=== PATIENT | female | born 1980 | race Caucasian/White ===

== ENCOUNTER 2017-04-19 16:09 | Emergency (ER) | payer BC, OTHER ==
[~2017-04-19] VITALS: Wt 63.6 kg
[~2017-04-19 16:09] MED LIST: ACET-2158 PO; Lanolin TOP; PREN1TAB49 PO
[2017-04-19] MEDS ORDERED: SOD CHLORIDE 0.9% 1,000 ML IV ONE (18:00)
[2017-04-19 18:58] VITALS: BP 139/95; PULSE 111; RESP 18; TEMP 98.1
--- NOTE | 2017-04-19 19:12 | ERD ---
ER Documentation Chief Complaint Date/Time DATE: 04/19/17 TIME: 19:11 Chief Complaint faint and jittery, high blood pressure water vessel captain HPI ""This is a 36-year-old female presenting to emergency department after feeling dizzy and weak and states she felt like she was going to faint. This occurred about 5 hours prior to arrival. Patient states she was driving at the time and pulled over. Patient was picked up by her parents and brought into the ER for evaluation. Patient states she believes she got "overheated" and states she feels dehydrated. Denies chest pain, shortness breath or difficulty breathing. Denies headache, weakness or dizziness. Patient states she is feeling better now and requesting IV fluids. Patient does not want to have labs or chest x- ray done. ROS All systems reviewed and are negative except as per history of present illness. Medications Home Meds Active Scripts [Lanolin] 1 APPLIC OINT No Conflict Check, 1 APPLIC TOP BEDSIDE MEDICATION Y for BEDSIDE FOR REBECCA TO NIPPLES for 7 Days, 5 Refills Prov:BEN SALOMON MD 08/14/14 Acetaminophen (TYLENOL 325 MG TAB) 325 Mg Tab, 650 MG PO Q4H Y for PAIN LEVEL 1- 5 for 10 Days, TAB Prov:BEN SALOMON MD 08/14/14 Reported Medications Vits W-Ca,Fe,Fa(<1MG) () 1 Tab Tablet, 1 TAB PO DAILY 03/20/12 Vits W-Ca,Fe,Fa(<1MG) () 1 Tab Tablet, 1 TAB PO DAILY 03/20/12 Allergies Allergies: Coded Allergies: Amoxicillin (Verified Allergy, Intermediate, rash, 12/08/09) Penicillins (Verified Allergy, Intermediate, rash, 12/08/09) PMhx/Soc History of Surgery: No Anesthesia Reaction: No Hx Neurological Disorder: No Hx Respiratory Disorders: No Hx Cardiac Disorders: No Hx Psychiatric Problems: No Hx Miscellaneous Medical Probl: Yes (Gerd, stoamch fissures.) Hx Alcohol Use: No Hx Substance Use: No Hx Tobacco Use: No Smoking Status: Never smoker Physical Exam Vitals Vital Signs Date Time Temp Pulse Resp B/P Pulse Ox O2 Delivery O2 Flow Rate FiO2 04/19/17 18:58 98.1 111 18 139/95 98 Room Air 04/19/17 16:10 98.6 128 20 159/92 98 Physical Exam Const: No acute distress, alert Head: Atraumatic Eyes: Normal Conjunctiva ENT: Normal External Ears, Nose and Mouth. Neck: Full range of motion..~ No meningismus. Resp: Clear to auscultation bilaterally. No wheezing, rhonchi or crackles.No stridor or labored breathing. Cardio: Regular rate and rhythm, no murmurs Abd: Soft, non tender, non distended. Normal bowel sounds Skin: No petechiae or rashes Back: No midline or flank tenderness Ext: No cyanosis, or edema Neur: Awake and alert Psych: Normal Mood and Affect Results 24 hrs Laboratory Tests Test 04/19/17 16:26 Bedside Glucose 154mg/dL Current Medications Medications (Trade) Dose Ordered Sig/Mayra Route PRN Reason Start Time Stop Time Status Last Admin Dose Admin Sodium Chloride (NS) 1,000 ml @ 1,000 mls/hr Q1H ONCE IV 04/19/17 18:00 04/19/17 18:59 DC 04/19/17 17:52 Procedures/MDM EKG: As interpreted by myself and Dr. Shine Rate/Rhythm: Sinus tachycardia with heart rate 114 bpm QRS, ST, T-waves: No changes consistent w/ acute ischemia Impression: No evidence of ischemia or arrhythmia MDM: This is a 36-year-old female presenting to the emergency department for presyncopal episode while driving earlier today. Patient currently denies chest pain, shortness of breath or difficulty breathing. Denies headache, dizziness or weakness. Patient denies any nausea, vomiting or diarrhea. No abdominal pain. No dysuria or hematuria. Patient states she received stressful news while driving at around the time she started feeling lightheaded and dizzy while driving. Patient given 1 L IV fluid bolus while in the ED. No neuro deficits. Patient is alert and oriented throughout ED visit. Upon reassessment, patient states she is feeling much better. Vital signs are stable. Patient remains alert and oriented throughout ED visit. Patient is refusing any lab work or chest x-ray to be done and states she is going to see her doctor in a few days for reassessment. Differential diagnosis includes but not limited to vertigo, presyncope, migraine headache, disequilibrium, hyperventilation, hypoglycemia, acute NE and dizziness not otherwise specified. Patient is appropriate for outpatient management instructed to follow-up with primary care provider in the next 2-3 days for reassessment. Return to ED for any high fever, chest pain, difficulty breathing, shortness breath, wheezing, vomiting, diarrhea, abdominal pain or any new or worsening symptoms. Patient verbalizes understanding. All questions answered at discharge. Departure Diagnosis: Primary Impression: Pre-syncope Condition: Stable Patient Instructions: Causes of Syncope, Near Syncope, Unknown Referrals: [facility] YOU HAVE RECEIVED A MEDICAL SCREENING EXAM AND THE RESULTS INDICATE THAT YOU DO NOT HAVE A CONDITION THAT REQUIRES URGENT TREATMENT IN THE EMERGENCY DEPARTMENT. FURTHER EVALUATION AND TREATMENT OF YOUR CONDITION CAN WAIT UNTIL YOU ARE SEEN IN YOUR DOCTORS OFFICE WITHIN THE NEXT 1-2 DAYS. IT IS YOUR RESPONSIBILITY TO MAKE AN APPOINTMENT FOR FOLOW-UP CARE. IF YOU HAVE A PRIMARY DOCTOR --you should call your primary doctor and schedule an appointment IF YOU DO NOT HAVE A PRIMARY DOCTOR YOU CAN CALL OUR PHYSICIAN REFERRAL HOTLINE AT IF YOU CAN NOT AFFORD TO SEE A PHYSICIAN YOU CAN CHOSE FROM THE FOLLOWING [facility] [address] [facility] [address] [facility]. [facility] [address] [facility] [address] [facility] [address] [facility] [facility]. [address] [facility]. [facility] YOU HAVE RECEIVED A MEDICAL SCREENING EXAM AND THE RESULTS INDICATE THAT YOU DO NOT HAVE A CONDITION THAT REQUIRES URGENT TREATMENT IN THE EMERGENCY DEPARTMENT. FURTHER EVALUATION AND TREATMENT OF YOUR CONDITION CAN WAIT UNTIL YOU ARE SEEN IN YOUR DOCTORS OFFICE WITHIN THE NEXT 1-2 DAYS. IT IS YOUR RESPONSIBILITY TO MAKE AN APPOINTMENT FOR FOLOW-UP CARE. IF YOU HAVE A PRIMARY DOCTOR --you should call your primary doctor and schedule and appointment IF YOU DO NOT HAVE A PRIMARY DOCTOR YOU CAN CALL OUR PHYSICIAN REFERRAL HOTLINE AT . IF YOU CAN NOT AFFORD TO SEE A PHYSICIAN YOU CAN CHOSE FROM THE FOLLOWING [facility] INSTITUTIONS: [facility] [id number] [place] [id number] [facility] [address] [place] [address] [facility] [address] [place] [address] Additional Instructions: Call your primary care doctor TOMORROW for an appointment during the next 2-3 days.See the doctor sooner or return here if your condition worsens before your appointment time. Return to ED for any high fever, chest pain, difficulty breathing, shortness breath, wheezing, vomiting, diarrhea, abdominal pain or any new or worsening symptoms. ALONDRA CHAND NP Apr 19, 2017 19:12
== END 2017-04-19 19:00 | disposition home or self-care (01) ==
LOC: FTE 16:09
DX: R55 Syncope and collapse (principal)
CPT/HCPCS: 82962; 93005; 99284; J7030

== ENCOUNTER 2018-10-27 11:02 | Inpatient (IN) | payer BC ==
[~2018-10-27] VITALS: Ht 152.4 cm; Wt 48.0 kg
[2018-10-27] MEDS ORDERED: ONDANSETRON 4 MG INJ IV STA (14:43)
[2018-10-27] MEDS ORDERED: morphine 4 MG/ML VIAL IV STA (14:43)
[2018-10-27] MEDS ORDERED: SOD CHLORIDE 0.9% 1,000 ML IV STA (14:43)
[2018-10-27] MEDS ORDERED: ONDANSETRON 4 MG INJ IV PRN ×2 (16:00→16:30)
[2018-10-27] MEDS ORDERED: ACETAMINOPHEN 325 MG TAB PO PRN (16:00)
[2018-10-27] MEDS ORDERED: SUCR1TAB56 PO (16:01)
[2018-10-27] MEDS ORDERED: PANT40TA4 PO (16:02)
[2018-10-27] MEDS ORDERED: LISI-471 PO (16:02)
[2018-10-27] MEDS ORDERED: METO-319 PO (16:02)
[2018-10-27] MEDS ORDERED: ONDA4TAB13 PO (16:03)
[2018-10-27] MEDS ORDERED: NACL 0.9% 3 ML SYG IV SCH (16:30)
[2018-10-27] MEDS ORDERED: ENALAPRILAT 1.25 MG INJ IV PRN (16:30)
--- NOTE | 2018-10-27 16:40 | PN ---
Date/Time of Note Date/Time of Note DATE: 10/27/18 TIME: 16:24 Assessment/Plan Lines/Catheters IV C[facility] Type [facility] Saline Lock Assessment/Plan Result Diagram: 10/27/18 1453 10/27/18 1452 Results 24hrs Laboratory Tests Test 10/27/18 14:52 10/27/18 14:53 10/27/18 15:04 Urine Color RACHEAL Urine Clarity CLEAR Urine pH 6 Urine Specific [place] 1.025 Urine Ketones 2+ Urine Nitrite NEGATIVE Urine Bilirubin 2+ H Urine Urobilinogen 2+ H Urine Leukocyte Esterase NEGATIVE Urine Microscopic RBC 0-2 Urine Microscopic WBC 2-5 Urine Squamous Epithelial Cells FEW Urine Hemoglobin NEGATIVE Urine Glucose NEGATIVE Urine Total Protein 1+ Sodium Level 139 Potassium Level 3.3 L Chloride Level 99 Carbon Dioxide Level 24 Anion Gap 16 H Blood Urea Nitrogen 9 Creatinine 0.48 Est Glomerular Filtrat Rate mL/min > 60 Glucose Level 67 L Calcium Level 8.9 Total Bilirubin 1.3 Direct Bilirubin 0.20 Indirect Bilirubin 1.1 Aspartate Amino Transf (AST/SGOT) 268 H Alanine Aminotransferase (ALT/SGPT) 64 Alkaline Phosphatase 325 H Total Protein 7.4 Albumin 3.6 Globulin 3.80 H Albumin/Globulin Ratio 0.94 Lipase 801 H Hepatitis B Surface Antigen NEGATIVE Hepatitis B Core Total Antibody NEGATIVE Hepatitis C Antibody NEGATIVE White Blood Count 6.4 # Red Blood Count 2.68 L Hemoglobin 9.9 L Hematocrit 28.7 L Mean Corpuscular Volume 107.1 H Mean Corpuscular Hemoglobin 36.9 H Mean Corpuscular Hemoglobin Concent 34.5 Red Cell Distribution Width 13.8 Platelet Count 115 L Mean Platelet Volume 10.1 # Immature Granulocytes % 0.500 H Neutrophils % 70.7 Lymphocytes % 14.6 L Monocytes % 12.5 H Eosinophils % 0.6 Basophils % 1.1 Nucleated Red Blood Cells % 0.0 Immature Granulocytes # 0.030 Neutrophils # 4.5 Lymphocytes # 0.9 Monocytes # 0.8 Eosinophils # 0.0 Basophils # 0.1 Nucleated Red Blood Cells # 0.0 POC Beta HCG, Qualitative NEGATIVE Subjective 24 Hr Interval Summary Free Text/Dictation er called with pt nauseated and elevated ast 268 lipase 800. er doc was discussing with pt autoimmune dz? -pt has gi doc -- dr chong who was called to consult. in past had labs with gi for wilsons, alpha 1 , hemochromatosis, autoimmune etc. 2017 egd 2017 demonstrated duodenal erosions, abd bogdan 2016 -fatty liver neg for gall stones. pmh: duodenal erosions ovarian cystectomy fatty liver htn Allergy nkda soc tob deny etoh rare fm- htn medication: pantoprazole 40 qd metoprolol er succ 50 qd lisinopril 20 qd zofran prn Exam/Review of Systems Exam Vitals Vital Signs Date Temp Pulse Resp B/P (MAP) Pulse Ox O2 O2 Flow FiO2 Time Delivery Rate 10/27/18 98.1 110 18 168/72 99 11:08 (104) Results Results 24hrs Laboratory Tests Test 10/27/18 14:52 10/27/18 14:53 10/27/18 15:04 Urine Color RACHEAL Urine Clarity CLEAR Urine pH 6 Urine Specific [place] 1.025 Urine Ketones 2+ Urine Nitrite NEGATIVE Urine Bilirubin 2+ H Urine Urobilinogen 2+ H Urine Leukocyte Esterase NEGATIVE Urine Microscopic RBC 0-2 Urine Microscopic WBC 2-5 Urine Squamous Epithelial Cells FEW Urine Hemoglobin NEGATIVE Urine Glucose NEGATIVE Urine Total Protein 1+ Sodium Level 139 Potassium Level 3.3 L Chloride Level 99 Carbon Dioxide Level 24 Anion Gap 16 H Blood Urea Nitrogen 9 Creatinine 0.48 Est Glomerular Filtrat Rate mL/min > 60 Glucose Level 67 L Calcium Level 8.9 Total Bilirubin 1.3 Direct Bilirubin 0.20 Indirect Bilirubin 1.1 Aspartate Amino Transf (AST/SGOT) 268 H Alanine Aminotransferase (ALT/SGPT) 64 Alkaline Phosphatase 325 H Total Protein 7.4 Albumin 3.6 Globulin 3.80 H Albumin/Globulin Ratio 0.94 Lipase 801 H Hepatitis B Surface Antigen NEGATIVE Hepatitis B Core Total Antibody NEGATIVE Hepatitis C Antibody NEGATIVE White Blood Count 6.4 # Red Blood Count 2.68 L Hemoglobin 9.9 L Hematocrit 28.7 L Mean Corpuscular Volume 107.1 H Mean Corpuscular Hemoglobin 36.9 H Mean Corpuscular Hemoglobin Concent 34.5 Red Cell Distribution Width 13.8 Platelet Count 115 L Mean Platelet Volume 10.1 # Immature Granulocytes % 0.500 H Neutrophils % 70.7 Lymphocytes % 14.6 L Monocytes % 12.5 H Eosinophils % 0.6 Basophils % 1.1 Nucleated Red Blood Cells % 0.0 Immature Granulocytes # 0.030 Neutrophils # 4.5 Lymphocytes # 0.9 Monocytes # 0.8 Eosinophils # 0.0 Basophils # 0.1 Nucleated Red Blood Cells # 0.0 POC Beta HCG, Qualitative NEGATIVE Medications Medication Current Medications Ondansetron HCl (Zofran Inj) 4 mg BRIDGE ORDER PRN IV NAUSEA/VOMITING; Start 10/27/18 at 16:00; Stop 10/28/18 at 15:59 Acetaminophen (Tylenol Tab) 650 mg ER BRIDGE PRN PO .MILD PAIN 1-3 OR TEMP; Start 10/27/18 at 16:00; Stop 10/28/18 at 15:59 FABY FARFAN MD Oct 27, 2018 16:34
--- NOTE | 2018-10-27 17:06 | ERD ---
ER Documentation Chief Complaint Chief Complaint ABD PAIN SENT BY FOR ABNORMAL LAB WORK HPI Patient is a 37-year-old female with hypertension who presents with abdominal pain. Her symptoms started on . She felt like she was having abdominal contractions. She says that her liver tests were "heather high". She was told to come to the ER by Dr. Flynn her primary doctor. She said that she has an inflamed spleen and liver. She said that it might be from autoimmune disease. Upon review of the old medical records this is the patient's sixth visit to the ER since 2008. ROS All systems reviewed and are negative except as per history of present illness. Medications Home Meds Reported Medications Ondansetron Hcl* (Zofran*) 4 Mg Tab, 4 MG PO NEEDED PRN for NAUSEA AND OR VOMITING, TAB 10/27/18 Metoprolol Succinate* (Toprol XL*) 50 Mg Tab.er.24h, 50 MG PO BID, #30 TAB 10/27/18 Pantoprazole* (Pantoprazole*) 40 Mg Tablet.dr, 40 MG PO AC BREAKFAST DINNER, TAB 10/27/18 Lisinopril* (Lisinopril*) 20 Mg Tablet, 20 MG PO DAILY, #30 TAB 10/27/18 Sucralfate* (Carafate*) 1 Gm Tab, 1 GM PO AC MEALS AND BEDTIME, TAB 10/27/18 Discontinued Reported Medications Vits W-Ca,Fe,Fa(<1MG) () 1 Tab Tablet, 1 TAB PO DAILY 03/20/12 Vits W-Ca,Fe,Fa(<1MG) () 1 Tab Tablet, 1 TAB PO DAILY 03/20/12 Discontinued Scripts [Lanolin] 1 APPLIC OINT No Conflict Check, 1 APPLIC TOP BEDSIDE MEDICATION PRN for BEDSIDE FOR REBECCA TO NIPPLES for 7 Days, 5 Refills Prov:BEN SALOMON MD 08/14/14 Acetaminophen (TYLENOL 325 MG TAB) 325 Mg Tab, 650 MG PO Q4H PRN for PAIN LEVEL 1-5 for 10 Days, TAB Prov:BEN SALOMON MD 08/14/14 Allergies Allergies: Coded Allergies: Penicillins (Verified Allergy, Intermediate, rash, 10/27/18) amoxicillin (Verified Allergy, Intermediate, rash, 10/27/18) PMhx/Soc History of Surgery: No Anesthesia Reaction: No Hx Neurological Disorder: No Hx Respiratory Disorders: No Hx Cardiac Disorders: Yes (HTN) Hx Psychiatric Problems: No Hx Miscellaneous Medical Probl: Yes (Gerd, stoamch fissures.) Hx Alcohol Use: Yes (Occasional) Hx Substance Use: No Hx Tobacco Use: No Smoking Status: Never smoker FmHx Family History: No diabetes Physical Exam Vitals Vital Signs Date Temp Pulse Resp B/P (MAP) Pulse Ox O2 O2 Flow FiO2 Time Delivery Rate 10/27/18 98.1 110 18 168/72 99 11:08 (104) Physical Exam Const: No acute distress Head: Atraumatic Eyes: Normal Conjunctiva ENT: Normal External Ears, Nose and Mouth. Neck: Full range of motion. No meningismus. Resp: Clear to auscultation bilaterally Cardio: Regular rate and rhythm, no murmurs Abd: Soft, diffuse tenderness to palpation Skin: No petechiae or rashes Back: No midline or flank tenderness Ext: No cyanosis, or edema Neur: Awake and alert Psych: Normal Mood and Affect Result Diagram: 10/27/18 1453 10/27/18 1452 Results 24 hrs Laboratory Tests Test 10/27/18 14:52 10/27/18 14:53 10/27/18 15:04 Urine Color RACHEAL Urine Clarity CLEAR Urine pH 6 Urine Specific [place] 1.025 Urine Ketones 2+ mg/dL Urine Nitrite NEGATIVE mg/dL Urine Bilirubin 2+ mg/dL Urine Urobilinogen 2+ mg/dL Urine Leukocyte Esterase NEGATIVE Esther/ul Urine Microscopic RBC 0-2 /HPF Urine Microscopic WBC 2-5 /HPF Urine Squamous Epithelial Cells FEW /HPF Urine Hemoglobin NEGATIVE mg/dL Urine Glucose NEGATIVE mg/dL Urine Total Protein 1+ mg/dl Sodium Level 139 mmol/L Potassium Level 3.3 mmol/L Chloride Level 99 mmol/L Carbon Dioxide Level 24 mmol/L Anion Gap 16 Blood Urea Nitrogen 9 mg/dl Creatinine 0.48 mg/dl Est Glomerular Filtrat > 60 mL/min Rate mL/min Glucose Level 67 mg/dl Hemoglobin A1c 4.3 % Calcium Level 8.9 mg/dl Total Bilirubin 1.3 mg/dl Direct Bilirubin 0.20 mg/dl Indirect Bilirubin 1.1 mg/dl Aspartate Amino Transf (AST/SGOT) 268 IU/L Alanine 64 IU/L Aminotransferase (ALT/SGPT) Alkaline Phosphatase 325 IU/L Total Protein 7.4 g/dl Albumin 3.6 g/dl Globulin 3.80 g/dl Albumin/Globulin Ratio 0.94 Lipase 801 U/L Hepatitis B Surface Antigen NEGATIVE Hepatitis B Core Total Antibody NEGATIVE Hepatitis C Antibody NEGATIVE White Blood Count 6.4 10^3/ul Red Blood Count 2.68 10^6/ul Hemoglobin 9.9 g/dl Hematocrit 28.7 % Mean Corpuscular Volume 107.1 fl Mean Corpuscular Hemoglobin 36.9 pg Mean Corpuscular 34.5 g/dl Hemoglobin Concent Red Cell Distribution Width 13.8 % Platelet Count 115 10^3/UL Mean Platelet Volume 10.1 fl Immature Granulocytes % 0.500 % Neutrophils % 70.7 % Lymphocytes % 14.6 % Monocytes % 12.5 % Eosinophils % 0.6 % Basophils % 1.1 % Nucleated Red Blood Cells % 0.0 /100WBC Immature Granulocytes # 0.030 10^3/ul Neutrophils # 4.5 10^3/ul Lymphocytes # 0.9 10^3/ul Monocytes # 0.8 10^3/ul Eosinophils # 0.0 10^3/ul Basophils # 0.1 10^3/ul Nucleated Red Blood Cells # 0.0 10^3/ul POC Beta HCG, Qualitative NEGATIVE Current Medications Medications Dose Sig/Mayra Start Time Status Last (Trade) Ordered Route PRN Stop Time Admin Dose Reason Admin Sodium 1,000 ml @ Q1H STAT 10/27/18 DC 10/27/18 Chloride 1,000 mls/hr IV 14:43 10/27/18 15:08 15:42 Morphine 4 mg ONCE STAT 10/27/18 DC 10/27/18 Sulfate IV 14:43 10/27/18 15:07 (morphine) 14:45 Ondansetron 4 mg ONCE STAT 10/27/18 DC 10/27/18 HCl (Zofran IV 14:43 10/27/18 15:07 Inj) 14:45 Procedures/MDM CT abdomen pelvis is pending at this time. Ultrasound gallbladder read by jonny kelly. Patient is a 37-year-old female who presents with abdominal pain. She was found to have elevated LFTs and has hepatosplenomegaly. The patient will be admitted to the care of Dr. Pérez who is covering for Dr. Flynn. The patient will be admitted to a medical surgical bed at this time. Departure Diagnosis: Primary Impression: Liver failure Liver failure chronicity: acute Hepatic coma status: without hepatic coma Qualified Codes: K72.00 - Acute and subacute hepatic failure without coma Additional Impression: Abdominal pain Abdominal location: generalized Qualified Codes: R10.84 - Generalized abdominal pain Condition: GABI Carcamo MD Oct 27, 2018 17:06
[2018-10-27] MEDS ORDERED: DEXTROSE 50% 50 ML SYRINGE IV STA (17:10)
[2018-10-27] MEDS ORDERED: DEXTROSE 50% 50 ML SYRINGE IV ONE (17:30)
[2018-10-27] MEDS: DEXTROSE 5%-0.9% NACL 1,000 ML IV SCH (17:33)
[2018-10-27] MEDS ORDERED: SOD CHLORIDE 0.9% 1,000 ML IV SCH (18:00)
[2018-10-27] MEDS: morphine 2 MG INJ IV PRN ×2 (18:19→22:41)
[2018-10-27 18:36] VITALS: BP 133/64; RESP 18
[2018-10-27] MEDS ORDERED: IOHEXOL 300MG/ML 150 ML BTL ONE (18:53)
[2018-10-27] MEDS ORDERED: SOD CHLORIDE 0.9% 100 ML ONE (18:53)
--- NOTE | 2018-10-27 19:39 | CONS ---
DATE OF ADMISSION: 10/27/2018 DATE OF CONSULTATION: TYPE OF CONSULTATION: Gastroenterology. HISTORY OF PRESENT ILLNESS: Ms. Ross is a 37-year-old woman who I am asked to see regarding abnorma l liver tests and abdominal symptoms. Apparently, the patient came to the emergency room today on advice of Dr. Flynn. She had been doing well in recent months and earlier last year, she was noted to have an AST of 41 and ALT of 68. Of note 8 days ago, she developed epigastric discomfort and a s ensation of distention. She had KUB performed as well as lab tests. The KUB showed hepatomegaly and splenomegaly. Lab tests at that time revealed the bilirubin of 4.0, alkaline phosphatase 337, AST 1 66, ALT 22, LDH 217, amylase 61, lipase 101, sed rate 36, hemoglobin 10.3, hematocrit 29, MCV 101, pl atelets 89, iron binding ratio of 29, ferritin 186, CRP 32. Since those labs over the past week, she has not felt any better. In fact, she felt slightly worse today and sought attention in the emergen cy room because of that. Over the past week, she describes sharp continual epigastric discomfort. I t is made worse by eating. Apparently over the past week, she took Tylenol one occasion but was advi sed not to by her mother. The pain has kept her from sleeping and is described as 10/10 in severity. In the emergency room, laboratory data were repeated and she was found to have a white count of 6.4 , hemoglobin 9.9, hematocrit 28.8, MCV 107, platelets 115, PT/INR 1.0, PTT 25.6. Chemistries are rem arkable for sodium 139, potassium 3.3, BUN 9, creatinine 0.48, glucose 67, bilirubin 1.3, AST 268, AL T 64, alkaline phosphatase 325, globulin 3.8, lipase 801. In addition, she has had an ultrasound per formed which showed distended gallbladder with sludge, likely focal fatty sparing of the liver adjace nt to the gallbladder, no significant gallbladder wall thickening and hepatomegaly of liver with fatt y infiltration. On reviewing her previous records, she was seen in 2017 with complaints of nausea an d vomiting. She admitted being under stress at that time. Nonetheless, she did not respond to medic al therapy and an endoscopy was performed. A small hiatal hernia was noted as well as granularity in the stomach and erosions in the bulb and duodenum. She was noted to have abnormal liver tests in and an MRI was performed which was read as having a fatty liver. Basic laboratory data showed dequan er test elevation. An VALENCIA was 1:80 with a sed rate of 2. A number of other serologies were ordered; however, the patient never returned for followup until the current time. PAST MEDICAL HISTORY: Significant for hospitalization for childbirth. Adult illness is significant for hypertension and tachycardia for which she is seeing a upholstery restorer. Childhood: Denies rheumati c fever, scarlet fever. ALLERGIES: 1. AMOXICILLIN. 2. PENICILLIN. INJURIES: None. MEDICATIONS: Currently include: 1. Metoprolol. 2. Pantoprazole. 3. Lisinopril. 4. Carafate. 5. Zofran on as needed basis. SOCIAL HISTORY: The patient works in the [employer]. She does not smoke and drinks 1 or 2 alcoholic beverages once weekly. FAMILY HISTORY: There is no family history of liver disease. REVIEW OF SYSTEMS: Negative except as noted above. PHYSICAL EXAMINATION: GENERAL: The patient is a well-developed, thin white female lying comfortably in bed. VITAL SIGNS: Temperature 98.1, pulse 100, respirations 18, blood pressure 130/84. SKIN: Clear. HEENT: Unremarkable for scleral icterus. LUNGS: Clear to percussion and auscultation. CARDIAC: No murmurs, rubs or gallops. ABDOMEN: Soft, mild distention, nontender, no rebound or rigidity. EXTREMITIES : No evidence of edema. LABORATORY DATA: From hospital, as recorded above. IMPRESSION: I am concerned about the patient's underlying liver disease. I note fluctuating liver t ests and a low level positive VALENCIA in the past. This certainly raises the possibility of autoimmune h epatitis. At this point, I am also concerned about the thrombocytopenia which may represent substant ial underlying liver disease. It is unclear as to whether the patient may have an autoimmune hepatit is type of phenomena or alternatively some type of infiltrative process in the liver such as a lympho ma. PLAN: 1. I will discuss the above with Dr. Flynn. 2. I discussed my concerns with the patient and have strongly advised her that she should not disapp ear from followup at this point. 3. Await CAT scan that has already been ordered. 4. I reviewed the situation with the ER doctor and ordered serologic studies as suggested by me. 5. The patient wishes to be admitted tonight for observation, but would like to be discharged tomorr ow if possible. As long as she is stable and not substantially symptomatic, I do not have a problem with that. However if she gets discharged, I have suggested she call me Tuesday morning to arrange fo r further followup. Thank you once again for having me see this patient in consultation. Dictated By: ASHANTI RIVERA/NTS Conf#: [id number] DID#: [id number] CC: FABY FARFAN MD;*EndCC*
[2018-10-27 19:56] VITALS: BMI 23.4
[2018-10-27 19:59] VITALS: BP 106/66; PULSE 88; RESP 18
[2018-10-28 02:43] VITALS: BP 132/62; PULSE 80; RESP 20
[2018-10-28] MEDS: DEXTROSE 5%-0.9% NACL 1,000 ML IV SCH (02:44)
[2018-10-28] MEDS: morphine 2 MG INJ IV PRN ×4 (02:45→20:11)
[2018-10-28] MEDS: PANTOPRAZOLE 40 MG INJ IV SCH (05:57)
[2018-10-28 07:58] VITALS: BP 103/64; PULSE 99; RESP 18
[2018-10-28] MEDS ORDERED: D5-NS + KCL 40 MEQ 1,000 ML IV SCH (11:30)
[2018-10-28] MEDS ORDERED: EPOETIN ALFA (NESRD) 3,000 UNITS/ML VIAL SC ONE (12:30)
--- NOTE | 2018-10-28 12:38 | PN ---
Date/Time of Note Date/Time of Note DATE: 10/28/18 TIME: 12:12 Assessment/Plan VTE Prophylaxis Risk score (from Nsg)>0 risk: 2 SCD applied (from Nsg): Yes Pharmacological prophylaxis: other Lines/Catheters IV Catheter Type (from Nrsg): Peripheral IV Urinary Cath still in place: No Assessment/Plan Hospital Course er called with pt nauseated and elevated ast 268 lipase 800. er doc was discussing with pt autoimmune dz? egd 2017 demonstrated duodenal erosions, abd bogdan 2016 -fatty liver neg for gall stones. CT scan of abd/pel show mild enlarged gb with stones, cannot r/o cholecystitis but wbc is normal and abd exam neg in RUQ. Assessment/Plan er called with pt nauseated and elevated ast 268 lipase 800. er doc was discussing with pt autoimmune dz? -pt has gi doc -- dr chong who was called to consult. in past had labs with gi for [place]ils[place], alpha 1 , hemochromatosis, autoimmune etc. 2017 egd 2017 demonstrated duodenal erosions, abd bogdan 2016 -fatty liver neg for gall stones. elevated LFT- improved today ast down 268 to 186, but pt has been NPO and on morphine . GI- CT scan of abd/pel show mild enlarged gb with stones, cannot r/o cholecystitis but wbc is normal and abd exam neg in RUQ. gi has been carefully following and HIDA scan is pending. pt needs to cont npo until after test is completed. pt belly distended and pt not hungry but she would like to have fluids. - gi reports in 2017 complete autoimmune workup results were neg. - lipase decreased from 800 to 400's while npo anemia- worse with hydration. will give epo today. and get fe studies. 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 currently on ppi. low K- being replaced in IV. discussed with nurse to change diet to clr lig after HIDA is completed. Result Diagram: [id number]/28/[id number] Results 24hrs Laboratory Tests Test 10/27/18 14:52 10/27/18 14:53 10/27/18 15:04 10/27/18 15:06 Haptoglobin 58 Urine Color RACHEAL Urine Clarity CLEAR Urine pH 6 Urine Specific [place] 1.025 Urine Ketones 2+ Urine Nitrite NEGATIVE Urine Bilirubin 2+ H Urine Urobilinogen 2+ H Urine Leukocyte NEGATIVE Esterase Urine Microscopic RBC 0-2 Urine Microscopic WBC 2-5 Urine Squamous FEW Epithelial Cells Urine Hemoglobin NEGATIVE Urine Glucose NEGATIVE Urine Total Protein 1+ Sodium Level 139 Potassium Level 3.3 L Chloride Level 99 Carbon Dioxide Level 24 Anion Gap 16 H Blood Urea Nitrogen 9 Creatinine 0.48 Est Glomerular Filtrat > 60 Rate mL/min Glucose Level 67 L Hemoglobin A1c 4.3 Calcium Level 8.9 Total Bilirubin 1.3 Direct Bilirubin 0.20 Indirect Bilirubin 1.1 Aspartate Amino 268 H Transf (AST/SGOT) Alanine 64 Aminotransferase (ALT/ SGPT) Alkaline Phosphatase 325 H Total Protein 7.4 Albumin 3.6 Globulin 3.80 H Albumin/Globulin Ratio 0.94 Lipase 801 H Anti-Nuclear Antibody Pending Screen Hepatitis B Surface NEGATIVE Antigen Hepatitis B Core NEGATIVE Total Antibody Hepatitis C Antibody NEGATIVE White Blood Count 6.4 # Red Blood Count 2.68 L Hemoglobin 9.9 L Hematocrit 28.7 L Mean Corpuscular 107.1 H Volume Mean Corpuscular 36.9 H Hemoglobin Mean Corpuscular 34.5 Hemoglobin Concent Red Cell Distribution 13.8 Width Platelet Count 115 L Mean Platelet Volume 10.1 # Immature Granulocytes 0.500 H % Neutrophils % 70.7 Lymphocytes % 14.6 L Monocytes % 12.5 H Eosinophils % 0.6 Basophils % 1.1 Nucleated Red Blood 0.0 Cells % Immature Granulocytes 0.030 # Neutrophils # 4.5 Lymphocytes # 0.9 Monocytes # 0.8 Eosinophils # 0.0 Basophils # 0.1 Nucleated Red Blood 0.0 Cells # POC Beta HCG, NEGATIVE Qualitative Hepatitis A IgM NON-REACTIVE Antibody Test 10/27/18 17:08 10/27/18 17:23 10/27/18 17:42 10/27/18 18:02 Bedside Glucose 65 L 239 H 191 [id number] 226 H Ceruloplasmin 31 Cholesterol Level 168 Immunoglobulin A 456 H Immunoglobulin G 1333 Immunoglobulin M 124 Smooth Muscle Pending Antibody Interpret Test 10/28/18 05:17 White Blood Count 3.2 #L Red Blood Count 2.29 L Hemoglobin 8.4 L Hematocrit 24.6 L Mean Corpuscular 107.4 H Volume Mean Corpuscular 36.7 H Hemoglobin Mean Corpuscular 34.1 Hemoglobin Concent Red Cell Distribution 13.4 Width Platelet Count 93 L Mean Platelet Volume 10.7 H Immature Granulocytes 0.300 % Neutrophils % 62.6 Lymphocytes % 19.6 Monocytes % 15.0 H Eosinophils % 1.6 Basophils % 0.9 Nucleated Red Blood 0.0 Cells % Immature Granulocytes 0.010 # Neutrophils # 2.0 Lymphocytes # 0.6 L Monocytes # 0.5 Eosinophils # 0.1 Basophils # 0.0 Nucleated Red Blood 0.0 Cells # Sodium Level 142 Potassium Level 3.0 L Chloride Level 106 Carbon Dioxide Level 29 Anion Gap 7 # Blood Urea Nitrogen 6 L Creatinine 0.42 L Est Glomerular Filtrat > 60 Rate mL/min Glucose Level 103 Hemoglobin A1c 4.4 Calcium Level 7.8 L Total Bilirubin 1.0 Direct Bilirubin 0.20 Indirect Bilirubin 0.8 Aspartate Amino 186 H Transf (AST/SGOT) Alanine 52 Aminotransferase (ALT/ SGPT) Alkaline Phosphatase 245 H Total Protein 6.0 #L Albumin 2.7 L Amylase Level 55 Lipase 424 H Exam/Review of Systems Exam Vitals Vital Signs Date Temp Pulse Resp B/P (MAP) Pulse Ox O2 O2 Flow FiO2 Time Delivery Rate 10/28/18 98.1 99 18 103/64 98 Room Air 07:58 (77) Intake and Output 10/27/18 10/27/18 10/28/18 1414:59 22:59 06:59 IntakeIntake Total 1000 ml BalanceBalance 1000 ml Results Results 24hrs Laboratory Tests Test 10/27/18 14:52 10/27/18 14:53 10/27/18 15:04 10/27/18 15:06 Haptoglobin 58 Urine Color RACHEAL Urine Clarity CLEAR Urine pH 6 Urine Specific [place] 1.025 Urine Ketones 2+ Urine Nitrite NEGATIVE Urine Bilirubin 2+ H Urine Urobilinogen 2+ H Urine Leukocyte NEGATIVE Esterase Urine Microscopic RBC 0-2 Urine Microscopic WBC 2-5 Urine Squamous FEW Epithelial Cells Urine Hemoglobin NEGATIVE Urine Glucose NEGATIVE Urine Total Protein 1+ Sodium Level 139 Potassium Level 3.3 L Chloride Level 99 Carbon Dioxide Level 24 Anion Gap 16 H Blood Urea Nitrogen 9 Creatinine 0.48 Est Glomerular Filtrat > 60 Rate mL/min Glucose Level 67 L Hemoglobin A1c 4.3 Calcium Level 8.9 Total Bilirubin 1.3 Direct Bilirubin 0.20 Indirect Bilirubin 1.1 Aspartate Amino 268 H Transf (AST/SGOT) Alanine 64 Aminotransferase (ALT/ SGPT) Alkaline Phosphatase 325 H Total Protein 7.4 Albumin 3.6 Globulin 3.80 H Albumin/Globulin Ratio 0.94 Lipase 801 H Anti-Nuclear Antibody Pending Screen Hepatitis B Surface NEGATIVE Antigen Hepatitis B Core NEGATIVE Total Antibody Hepatitis C Antibody NEGATIVE White Blood Count 6.4 # Red Blood Count 2.68 L Hemoglobin 9.9 L Hematocrit 28.7 L Mean Corpuscular 107.1 H Volume Mean Corpuscular 36.9 H Hemoglobin Mean Corpuscular 34.5 Hemoglobin Concent Red Cell Distribution 13.8 Width Platelet Count 115 L Mean Platelet Volume 10.1 # Immature Granulocytes 0.500 H % Neutrophils % 70.7 Lymphocytes % 14.6 L Monocytes % 12.5 H Eosinophils % 0.6 Basophils % 1.1 Nucleated Red Blood 0.0 Cells % Immature Granulocytes 0.030 # Neutrophils # 4.5 Lymphocytes # 0.9 Monocytes # 0.8 Eosinophils # 0.0 Basophils # 0.1 Nucleated Red Blood 0.0 Cells # POC Beta HCG, NEGATIVE Qualitative Hepatitis A IgM NON-REACTIVE Antibody Test 10/27/18 17:08 10/27/18 17:23 10/27/18 17:42 10/27/18 18:02 Bedside Glucose 65 L 239 H 191 [id number] 226 H Ceruloplasmin 31 Cholesterol Level 168 Immunoglobulin A 456 H Immunoglobulin G 1333 Immunoglobulin M 124 Smooth Muscle Pending Antibody Interpret Test 10/28/18 05:17 White Blood Count 3.2 #L Red Blood Count 2.29 L Hemoglobin 8.4 L Hematocrit 24.6 L Mean Corpuscular 107.4 H Volume Mean Corpuscular 36.7 H Hemoglobin Mean Corpuscular 34.1 Hemoglobin Concent Red Cell Distribution 13.4 Width Platelet Count 93 L Mean Platelet Volume 10.7 H Immature Granulocytes 0.300 % Neutrophils % 62.6 Lymphocytes % 19.6 Monocytes % 15.0 H Eosinophils % 1.6 Basophils % 0.9 Nucleated Red Blood 0.0 Cells % Immature Granulocytes 0.010 # Neutrophils # 2.0 Lymphocytes # 0.6 L Monocytes # 0.5 Eosinophils # 0.1 Basophils # 0.0 Nucleated Red Blood 0.0 Cells # Sodium Level 142 Potassium Level 3.0 L Chloride Level 106 Carbon Dioxide Level 29 Anion Gap 7 # Blood Urea Nitrogen 6 L Creatinine 0.42 L Est Glomerular Filtrat > 60 Rate mL/min Glucose Level 103 Hemoglobin A1c 4.4 Calcium Level 7.8 L Total Bilirubin 1.0 Direct Bilirubin 0.20 Indirect Bilirubin 0.8 Aspartate Amino 186 H Transf (AST/SGOT) Alanine 52 Aminotransferase (ALT/ SGPT) Alkaline Phosphatase 245 H Total Protein 6.0 #L Albumin 2.7 L Amylase Level 55 Lipase 424 H Medications Medication Current Medications Ondansetron HCl (Zofran Inj) 4 mg BRIDGE ORDER PRN IV NAUSEA/VOMITING; Start 10/27/18 at 16:00; Stop 10/28/18 at 15:59 Acetaminophen (Tylenol Tab) 650 mg ER BRIDGE PRN PO .MILD PAIN 1-3 OR TEMP; Start 10/27/18 at 16:00; Stop 10/28/18 at 15:59 IV Flush (NS 3 ml) 3 ml PER PROTOCOL IV ; Start 10/27/18 at 16:30 Ondansetron HCl (Zofran Inj) 4 mg Q6H PRN IV NAUSEA/VOMITING; Start 10/27/18 at 16:30 Morphine Sulfate (morphine) 2 mg Q4H PRN IV .SEVERE PAIN 7-10 Last administered on 10/28/18at 07:58; Admin Dose 2 MG; Start 10/27/18 at 16:30 Pantoprazole (Protonix Iv) 40 mg DAILY@06 IV Last administered on 10/28/18at 05:57; Admin Dose 40 MG; Start 10/28/18 at 06:00 Potassium Chloride/Dextrose/ Sod Cl 1,000 ml @ 120 mls/hr Q8H20M IV ; Start 10/28/18 at 11:30 FABY FARFAN MD Oct 28, 2018 12:22
--- NOTE | 2018-10-28 13:03 | CONS ---
Consult Date/Type/Reason Admit Date/Time Oct 27, 2018 at 15:43 Initial Consult Date Type of Consultation: GI Date/Time of Note DATE: 10/28/18 TIME: 12:40 Subjective Still having diffuse abdominal discomfort Reviewed OP labs from 2017: Fe/IBC 60 Ferritin 170 Anti Sm Musc normal AMA - HAA - negative HBsAb+, HBcAb -, HBsAg- Anti LKM - normal VAL[place] - Negative Ceruloplasmin - normal Alpha Anti Trypsin - normal Immunoglobulins Normal except elevated IgE Reviwed Ct with radiologist: uncertain re cholecystitis, ? findings related to hepatitis and distended GB from fasting Objective Vitals Vital Signs Date Temp Pulse Resp B/P (MAP) Pulse Ox O2 O2 Flow FiO2 Time Delivery Rate 10/28/18 98.1 99 18 103/64 98 Room Air 07:58 (77) Skin: clear Cardiac: no m, r, g Abdomen: soft, mild diffuse abdominal discomfort, no rebound or rigidity Ext: no edema Intake and Output 10/27/18 10/27/18 10/28/18 1515:00 23:00 07:00 IntakeIntake Total 1000 ml BalanceBalance 1000 ml Results/Medications Result Diagram: 10/28/18 0517 10/28/18 0517 Results 24 hrs Laboratory Tests Test 10/27/18 14:52 10/27/18 14:53 10/27/18 15:04 10/27/18 15:06 Haptoglobin 58 Urine Color RCAHEAL Urine Clarity CLEAR Urine pH 6 Urine Specific [place] 1.025 Urine Ketones 2+ Urine Nitrite NEGATIVE Urine Bilirubin 2+ H Urine Urobilinogen 2+ H Urine Leukocyte NEGATIVE Esterase Urine Microscopic RBC 0-2 Urine Microscopic WBC 2-5 Urine Squamous FEW Epithelial Cells Urine Hemoglobin NEGATIVE Urine Glucose NEGATIVE Urine Total Protein 1+ Sodium Level 139 Potassium Level 3.3 L Chloride Level 99 Carbon Dioxide Level 24 Anion Gap 16 H Blood Urea Nitrogen 9 Creatinine 0.48 Est Glomerular Filtrat > 60 Rate mL/min Glucose Level 67 L Hemoglobin A1c 4.3 Calcium Level 8.9 Total Bilirubin 1.3 Direct Bilirubin 0.20 Indirect Bilirubin 1.1 Aspartate Amino 268 H Transf (AST/SGOT) Alanine 64 Aminotransferase (ALT/ SGPT) Alkaline Phosphatase 325 H Total Protein 7.4 Albumin 3.6 Globulin 3.80 H Albumin/Globulin Ratio 0.94 Lipase 801 H Anti-Nuclear Antibody Pending Screen Hepatitis B Surface NEGATIVE Antigen Hepatitis B Core NEGATIVE Total Antibody Hepatitis C Antibody NEGATIVE White Blood Count 6.4 # Red Blood Count 2.68 L Hemoglobin 9.9 L Hematocrit 28.7 L Mean Corpuscular 107.1 H Volume Mean Corpuscular 36.9 H Hemoglobin Mean Corpuscular 34.5 Hemoglobin Concent Red Cell Distribution 13.8 Width Platelet Count 115 L Mean Platelet Volume 10.1 # Immature Granulocytes 0.500 H % Neutrophils % 70.7 Lymphocytes % 14.6 L Monocytes % 12.5 H Eosinophils % 0.6 Basophils % 1.1 Nucleated Red Blood 0.0 Cells % Immature Granulocytes 0.030 # Neutrophils # 4.5 Lymphocytes # 0.9 Monocytes # 0.8 Eosinophils # 0.0 Basophils # 0.1 Nucleated Red Blood 0.0 Cells # POC Beta HCG, NEGATIVE Qualitative Hepatitis A IgM NON-REACTIVE Antibody Test 10/27/18 17:08 10/27/18 17:23 10/27/18 17:42 10/27/18 18:02 Bedside Glucose 65 L 239 H 191 [id number] 226 H Ceruloplasmin 31 Cholesterol Level 168 Immunoglobulin A 456 H Immunoglobulin G 1333 Immunoglobulin M 124 Smooth Muscle Pending Antibody Interpret Test 10/28/18 05:17 White Blood Count 3.2 #L Red Blood Count 2.29 L Hemoglobin 8.4 L Hematocrit 24.6 L Mean Corpuscular 107.4 H Volume Mean Corpuscular 36.7 H Hemoglobin Mean Corpuscular 34.1 Hemoglobin Concent Red Cell Distribution 13.4 Width Platelet Count 93 L Mean Platelet Volume 10.7 H Immature Granulocytes 0.300 % Neutrophils % 62.6 Lymphocytes % 19.6 Monocytes % 15.0 H Eosinophils % 1.6 Basophils % 0.9 Nucleated Red Blood 0.0 Cells % Immature Granulocytes 0.010 # Neutrophils # 2.0 Lymphocytes # 0.6 L Monocytes # 0.5 Eosinophils # 0.1 Basophils # 0.0 Nucleated Red Blood 0.0 Cells # Sodium Level 142 Potassium Level 3.0 L Chloride Level 106 Carbon Dioxide Level 29 Anion Gap 7 # Blood Urea Nitrogen 6 L Creatinine 0.42 L Est Glomerular Filtrat > 60 Rate mL/min Glucose Level 103 Hemoglobin A1c 4.4 Calcium Level 7.8 L Total Bilirubin 1.0 Direct Bilirubin 0.20 Indirect Bilirubin 0.8 Aspartate Amino 186 H Transf (AST/SGOT) Alanine 52 Aminotransferase (ALT/ SGPT) Alkaline Phosphatase 245 H Total Protein 6.0 #L Albumin 2.7 L Amylase Level 55 Lipase 424 H Home Meds Reported Medications Ondansetron Hcl* (Zofran*) 4 Mg Tab, 4 MG PO NEEDED PRN for NAUSEA AND OR VOMITING, TAB 10/27/18 Metoprolol Succinate* (Toprol XL*) 50 Mg Tab.er.24h, 50 MG PO BID, #30 TAB 10/27/18 Pantoprazole* (Pantoprazole*) 40 Mg Tablet.dr, 40 MG PO AC BREAKFAST DINNER, TAB 10/27/18 Lisinopril* (Lisinopril*) 20 Mg Tablet, 20 MG PO DAILY, #30 TAB 10/27/18 Sucralfate* (Carafate*) 1 Gm Tab, 1 GM PO AC MEALS AND BEDTIME, TAB 10/27/18 Discontinued Reported Medications Vits W-Ca,Fe,Fa(<1MG) () 1 Tab Tablet, 1 TAB PO DAILY 03/20/12 Vits W-Ca,Fe,Fa(<1MG) () 1 Tab Tablet, 1 TAB PO DAILY 03/20/12 Discontinued Scripts [Lanolin] 1 APPLIC OINT No Conflict Check, 1 APPLIC TOP BEDSIDE MEDICATION PRN for BEDSIDE FOR REBECCA TO NIPPLES for 7 Days, 5 Refills Prov:BEN SALOMON MD 08/14/14 Acetaminophen (TYLENOL 325 MG TAB) 325 Mg Tab, 650 MG PO Q4H PRN for PAIN LEVEL 1-5 for 10 Days, TAB Prov:BEN SALOMON MD 08/14/14 Medications Current Medications IV Flush (NS 3 ml) 3 ml PER PROTOCOL IV ; Start 10/27/18 at 16:30 Ondansetron HCl (Zofran Inj) 4 mg Q6H PRN IV NAUSEA/VOMITING; Start 10/27/18 at 16:30 Morphine Sulfate (morphine) 2 mg Q4H PRN IV .SEVERE PAIN 7-10 Last administered on 10/28/18at 12:24; Admin Dose 2 MG; Start 10/27/18 at 16:30 Pantoprazole (Protonix Iv) 40 mg DAILY@06 IV Last administered on 10/28/18at 05:57; Admin Dose 40 MG; Start 10/28/18 at 06:00 Potassium Chloride/Dextrose/ Sod Cl 1,000 ml @ 100 mls/hr Q10H IV ; Start 10/28/18 at 11:30 Assessment/Plan Hospital Course (Demo Recall) Impression: 1. Abdominal discomfort - ? whether CT scan gallbladder findings represent cholecystitis, note normal wbc and atypical symptoms 2. Chronically abnormal and fluctuating liver tests with extensive negative evaluation - note improvement over past week 3. Elevated lipase - improving - no evidence of pancreatitis on CT Plan: Discussed with Manolo Flynn yesterday and Beto today HIDA scan ordered If HIDA scan positive, will need surgical consultation for cholecystectomy and intraoperative liver biopsy If HIDA scan negative next step may be liver biopsy or referral to tertiary center ASHANTI WARREN MD Oct 28, 2018 12:52
[2018-10-28] MEDS: POTASSIUM CHLORIDE 40 MEQ in DEXTROSE 5%-0.9% NACL 1,000 ML IV SCH (13:40)
[2018-10-28 14:00] VITALS: BP 104/64; PULSE 84; RESP 18
[2018-10-28] MEDS ORDERED: EPOETIN 10000 UNITS/ML (NON ESRD/NON ONCOLOGY) SC SCH (15:00)
[2018-10-28 20:00] VITALS: BP 117/70; PULSE 74; RESP 17
[2018-10-29] MEDS: morphine 2 MG INJ IV PRN ×5 (00:29→18:44)
[2018-10-29] MEDS: POTASSIUM CHLORIDE 40 MEQ in DEXTROSE 5%-0.9% NACL 1,000 ML IV SCH ×3 (01:57→14:45)
[2018-10-29 03:12] VITALS: BP 101/63; PULSE 96; RESP 18
[2018-10-29] MEDS: PANTOPRAZOLE 40 MG INJ IV SCH (05:13)
[2018-10-29 08:22] VITALS: BP 121/67; PULSE 61; RESP 17
--- NOTE | 2018-10-29 11:09 | CONS ---
Consult Date/Type/Reason Admit Date/Time Oct 27, 2018 at 15:43 Initial Consult Date Type of Consultation: GI Date/Time of Note DATE: 10/29/18 TIME: 11:03 Subjective HIDA scan shows normal gallbladder Tolerated clear liquids Abdominal discomfort persists Objective Vitals Vital Signs Date Temp Pulse Resp B/P (MAP) Pulse Ox O2 O2 Flow FiO2 Time Delivery Rate 10/29/18 98.0 61 17 121/67 93 08:22 (85) 10/28/18 Room Air 14:00 Cheat: clear to P and A Cardiac: no m, r, g Abdomen: soft, mild diffuse tenderness, no rebound or rigidity Intake and Output 10/28/18 10/28/18 10/29/18 1515:00 23:00 07:00 IntakeIntake Total 1000 ml 300 ml 840 ml BalanceBalance 1000 ml 300 ml 840 ml Results/Medications Result Diagram: 10/28/18 0517 10/29/18 0434 Results 24 hrs Laboratory Tests Test 10/29/18 04:34 10/29/18 04:53 Sodium Level 144 Potassium Level 3.4 L Chloride Level 110 Carbon Dioxide Level 27 Anion Gap 7 Blood Urea Nitrogen 3 L Creatinine 0.44 Est Glomerular Filtrat Rate mL/min > 60 Glucose Level 101 Calcium Level 7.7 L Iron Level 47 Total Iron Binding Capacity 229 L Percent Iron Saturation 21 L Lipase 321 H Total Bilirubin 0.8 Direct Bilirubin 0.00 # Indirect Bilirubin 0.8 Aspartate Amino Transf (AST/SGOT) 172 H Alanine Aminotransferase (ALT/SGPT) 57 Alkaline Phosphatase 203 H Total Protein 5.6 L Albumin 2.6 L Home Meds Reported Medications Ondansetron Hcl* (Zofran*) 4 Mg Tab, 4 MG PO NEEDED PRN for NAUSEA AND OR VOMITING, TAB 10/27/18 Metoprolol Succinate* (Toprol XL*) 50 Mg Tab.er.24h, 50 MG PO BID, #30 TAB 10/27/18 Pantoprazole* (Pantoprazole*) 40 Mg Tablet.dr, 40 MG PO AC BREAKFAST DINNER, TAB 10/27/18 Lisinopril* (Lisinopril*) 20 Mg Tablet, 20 MG PO DAILY, #30 TAB 10/27/18 Sucralfate* (Carafate*) 1 Gm Tab, 1 GM PO AC MEALS AND BEDTIME, TAB 10/27/18 Discontinued Reported Medications Vits W-Ca,Fe,Fa(<1MG) () 1 Tab Tablet, 1 TAB PO DAILY 03/20/12 Vits W-Ca,Fe,Fa(<1MG) () 1 Tab Tablet, 1 TAB PO DAILY 03/20/12 Discontinued Scripts [Lanolin] 1 APPLIC OINT No Conflict Check, 1 APPLIC TOP BEDSIDE MEDICATION PRN for BEDSIDE FOR REBECCA TO NIPPLES for 7 Days, 5 Refills Prov:BEN SALOMON MD 08/14/14 Acetaminophen (TYLENOL 325 MG TAB) 325 Mg Tab, 650 MG PO Q4H PRN for PAIN LEVEL 1-5 for 10 Days, TAB Prov:BEN SALOMON MD 08/14/14 Medications Current Medications IV Flush (NS 3 ml) 3 ml PER PROTOCOL IV ; Start 10/27/18 at 16:30 Ondansetron HCl (Zofran Inj) 4 mg Q6H PRN IV NAUSEA/VOMITING; Start 10/27/18 at 16:30 Morphine Sulfate (morphine) 2 mg Q4H PRN IV .SEVERE PAIN 7-10 Last administered on 10/29/18at 09:24; Admin Dose 2 MG; Start 10/27/18 at 16:30 Pantoprazole (Protonix Iv) 40 mg DAILY@06 IV Last administered on 10/29/18at 05:13; Admin Dose 40 MG; Start 10/28/18 at 06:00 Potassium Chloride 40 meq/ Dextrose/Sodium Chloride 1,020 ml @ 100 mls/hr [id number] IV Last administered on 10/29/18at 01:57; Admin Dose 100 MLS/HR; Start 10/28/18 at 13:00 Assessment/Plan Hospital Course (Demo Recall) Impression: 1. Abdominal discomfort - no evidence of cholecystitis 2. Chronically abnormal and fluctuating liver tests with extensive negative evaluation - note continued improvement 3. Elevated lipase - improving - no evidence of pancreatitis on CT Plan: Will obtain MRCP re consideration of biliary tract pathology given rapid improvement in bilirubin from 4 to 0.8 today Pending results of MRCP, would consider liver biopsy or second opinion [facility] Discussed with patient and boyfriend Advance diet as tolerated ASHANTI WARREN MD Oct 29, 2018 11:09
[2018-10-29] MEDS ORDERED: POTASSIUM CHLORIDE (SR) 20 MEQ TAB PO STA (11:13)
--- NOTE | 2018-10-29 13:07 | PN ---
Date/Time of Note Date/Time of Note DATE: 10/29/18 TIME: 13:01 Assessment/Plan VTE Prophylaxis Risk score (from Ns)>0 risk: 2 SCD applied (from Ns): Yes Pharmacological prophylaxis: NA/contraindicated Pharm contraindication: liver dx Lines/Catheters IV Catheter Type (from Nrs): Peripheral IV Urinary Cath still in place: No Assessment/Plan Hospital Course er called with pt nauseated and elevated ast 268 lipase 800. er doc was discussing with pt autoimmune dz? egd 2017 demonstrated duodenal erosions, abd bogdan 2016 -fatty liver neg for gall stones. CT scan of abd/pel show mild enlarged gb with stones, cannot r/o cholecystitis but wbc is normal and abd exam neg in RUQ. HIDA scan - neg. Assessment/Plan er called with pt nauseated and elevated ast 268 lipase 800. elevated LFT- cont to improve ast down 268 to 186 to 176, pt has been on clr fluids and on morphine . GI- CT scan of abd/pel show mild enlarged gb with stones, cannot r/o cholecystitis but wbc is normal and abd exam neg in RUQ. gi has been carefully following and HIDA scan neg. - gi reports in 2017 complete autoimmune workup results were neg. - lipase decreased from 800 to 400's to 312. but the pancrease has not been inflamed on ct. - pt awaiting mrcp. if neg then plans for either liver bx vs going to [facility] for 2nd opinion. - will not give prophlax anticoag due to possible liver bx on mon. anemia- worse with hydration. given 1 dose epo. fe level was low normal with low sat. 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 currently on ppi. low K- being replaced in IV. improved. Result Diagram: 10/28/18 0517 10/29/18 0434 Results 24hrs Laboratory Tests Test 10/29/18 04:34 10/29/18 04:53 Sodium Level 144 Potassium Level 3.4 L Chloride Level 110 Carbon Dioxide Level 27 Anion Gap 7 Blood Urea Nitrogen 3 L Creatinine 0.44 Est Glomerular Filtrat Rate mL/min > 60 Glucose Level 101 Calcium Level 7.7 L Iron Level 47 Total Iron Binding Capacity 229 L Percent Iron Saturation 21 L Lipase 321 H Total Bilirubin 0.8 Direct Bilirubin 0.00 # Indirect Bilirubin 0.8 Aspartate Amino Transf (AST/SGOT) 172 H Alanine Aminotransferase (ALT/SGPT) 57 Alkaline Phosphatase 203 H Total Protein 5.6 L Albumin 2.6 L Exam/Review of Systems Exam Vitals Vital Signs Date Temp Pulse Resp B/P (MAP) Pulse Ox O2 O2 Flow FiO2 Time Delivery Rate 10/29/18 98.0 61 17 121/67 93 08:22 (85) 10/28/18 Room Air 14:00 Intake and Output 10/28/18 10/28/18 10/29/18 1515:00 23:00 07:00 IntakeIntake Total 1000 ml 300 ml 840 ml BalanceBalance 1000 ml 300 ml 840 ml Results Results 24hrs Laboratory Tests Test 10/29/18 04:34 10/29/18 04:53 Sodium Level 144 Potassium Level 3.4 L Chloride Level 110 Carbon Dioxide Level 27 Anion Gap 7 Blood Urea Nitrogen 3 L Creatinine 0.44 Est Glomerular Filtrat Rate mL/min > 60 Glucose Level 101 Calcium Level 7.7 L Iron Level 47 Total Iron Binding Capacity 229 L Percent Iron Saturation 21 L Lipase 321 H Total Bilirubin 0.8 Direct Bilirubin 0.00 # Indirect Bilirubin 0.8 Aspartate Amino Transf (AST/SGOT) 172 H Alanine Aminotransferase (ALT/SGPT) 57 Alkaline Phosphatase 203 H Total Protein 5.6 L Albumin 2.6 L Medications Medication Current Medications IV Flush (NS 3 ml) 3 ml PER PROTOCOL IV ; Start 10/27/18 at 16:30 Ondansetron HCl (Zofran Inj) 4 mg Q6H PRN IV NAUSEA/VOMITING; Start 10/27/18 at 16:30 Morphine Sulfate (morphine) 2 mg Q4H PRN IV .SEVERE PAIN 7-10 Last administered on 10/29/18at 09:24; Admin Dose 2 MG; Start 10/27/18 at 16:30 Pantoprazole (Protonix Iv) 40 mg DAILY@06 IV Last administered on 10/29/18at 05:13; Admin Dose 40 MG; Start 10/28/18 at 06:00 Potassium Chloride 40 meq/ Dextrose/Sodium Chloride 1,020 ml @ 100 mls/hr [id number] IV Last administered on 10/29/18at 01:57; Admin Dose 100 MLS/HR; Start 10/28/18 at 13:00 FABY FARFAN MD Oct 29, 2018 13:07
--- NOTE | 2018-10-29 13:32 | HP ---
DATE OF ADMISSION: 10/27/2018 ADMISSION DIAGNOSES: 1. Nausea. 2. Abdominal distention. 3. Elevated liver function tests. 4. Elevated pancreatic enzymes. HISTORY OF PRESENT ILLNESS: This is a 37-year-old female with known history of abnormal liver functi on tests, abdominal distention and pain for the past 2 years. Had a workup by Dr. Pierce approximately in 2017 which was negative. She did not have followup after that. The patient continued to have he r problem and was seeing her primary physician and was waiting for a CAT scan when the nausea increas ed. The patient came then into the emergency room. In the ER, she had elevated AST at 268 and lipas e at 800. The patient is to be admitted for abdominal pain, nausea and though was not worked out. I n 2016, Dr. Pierce did do labs for hemochromatosis, alpha 1 antitrypsin deficiency, Hardy's disease, a utoimmune disease which is reported that it was negative. She had an EGD is 2017 demonstrating duode nal erosions and had an abdominal ultrasound in 2015 demonstrating a fatty liver, negative for gallst ones. PAST SURGICAL HISTORY: Includes duodenal erosions, ovarian cystectomy, fatty liver, hypertension. ALLERGIES: NO KNOWN DRUG ALLERGIES. SOCIAL HISTORY: Tobacco denies. Alcohol: Rare. FAMILY HISTORY: Hypertension. MEDICATIONS: 1. Pantoprazole 40 mg daily. 2. Metoprolol ER succinate 50 mg daily started since her abdominal pain started approximately in 7. 3. Lisinopril 20 mg daily. 4. Zofran p.r.n. PHYSICAL EXAMINATION: VITAL SIGNS: Temperature 98.1, pulse is 110, respirations 18, blood pressure 168/72, pulse ox is 99. HEENT: Head is normocephalic, atraumatic. Eyes: Pupils are equal, round, react to light and accomm odation. NECK: Symmetrical. CARDIOVASCULAR: Increased rate, regular rhythm. LUNGS: Clear to auscultation bilaterally. ABDOMEN: Mild distention, decreased bowel sounds. No palpable masses. EXTREMITIES: Lower extremities had no pitting edema. Color is normal. LABORATORY TESTS: Demonstrate urine bilirubin at 2+ and urobilinogen is 2. AST is 268, ALT is 64. Lipase is 801. WBC is 6.4, hemoglobin 9.9. ASSESSMENT AND PLAN: 1. Elevated liver function tests. GI was consulted to evaluate the patient. I placed the patient o n n.p.o. Continue morphine p.r.n. CT scan is pending. Treat nausea p.r.n. with Zofran. 2. Anemia. The patient will be rehydrated. Most likely, the hemoglobin will go down. We will cont inue to watch. Dictated By: FABY EMMANUEL/NAZANIN Conf#: [id number] DID#: [id number]
[2018-10-29 15:00] VITALS: BP 104/78; PULSE 93; RESP 16
[2018-10-29 20:00] VITALS: BP 108/59; PULSE 88; RESP 18
[2018-10-30] VITALS (9 sets, daily range): BP systolic 96–135; BP diastolic 53–91; PULSE 91–109; RESP 16–20
[2018-10-30] MEDS: POTASSIUM CHLORIDE 40 MEQ in DEXTROSE 5%-0.9% NACL 1,000 ML IV SCH ×2 (00:50→14:44)
[2018-10-30] MEDS: morphine 2 MG INJ IV PRN ×6 (04:17→21:07)
[2018-10-30] MEDS: PANTOPRAZOLE 40 MG INJ IV SCH (05:16)
[2018-10-30] MEDS ORDERED: PHYTONADIONE 10 MG/ML INJ SC ONE (08:30)
--- NOTE | 2018-10-30 08:36 | CONS ---
Consult Date/Type/Reason Admit Date/Time Oct 27, 2018 at 15:43 Initial Consult Date Type of Consultation: GI Date/Time of Note DATE: 10/30/18 TIME: 08:31 Subjective About the same Abdominal discomfort persists Objective Vitals Vital Signs Date Temp Pulse Resp B/P (MAP) Pulse Ox O2 O2 Flow FiO2 Time Delivery Rate 10/30/18 98.6 103 18 96/53 (67) 97 08:19 10/28/18 Room Air 14:00 Abdomen: soft, nontender, +bs Intake and Output 10/29/18 10/29/18 10/30/18 1515:00 23:00 07:00 IntakeIntake Total 820 ml 540 ml 1370 ml BalanceBalance 820 ml 540 ml 1370 ml Results/Medications Result Diagram: 10/30/18 0429 10/30/18 0429 Results 24 hrs Laboratory Tests Test 10/30/18 04:29 White Blood Count 4.0 #L Red Blood Count 2.42 L Hemoglobin 8.9 L Hematocrit 26.9 L Mean Corpuscular Volume 111.2 H Mean Corpuscular Hemoglobin 36.8 H Mean Corpuscular Hemoglobin Concent 33.1 Red Cell Distribution Width 13.5 Platelet Count 120 #L Mean Platelet Volume 11.3 H Immature Granulocytes % 0.500 H Neutrophils % 65.4 Lymphocytes % 21.0 Monocytes % 11.3 H Eosinophils % 1.0 Basophils % 0.8 Nucleated Red Blood Cells % 0.0 Immature Granulocytes # 0.020 Neutrophils # 2.6 Lymphocytes # 0.8 Monocytes # 0.5 Eosinophils # 0.0 Basophils # 0.0 Nucleated Red Blood Cells # 0.0 Prothrombin Time 16.2 H Prothrombin Time Ratio 1.3 INR International Normalized Ratio 1.29 Activated Partial Thromboplast Time 35.3 H Sodium Level 144 Potassium Level 4.1 Chloride Level 111 H Carbon Dioxide Level 24 Anion Gap 9 Blood Urea Nitrogen < 2 L Creatinine 0.43 L Est Glomerular Filtrat Rate mL/min > 60 Glucose Level 92 Calcium Level 7.4 L Total Bilirubin 0.8 Direct Bilirubin 0.00 Indirect Bilirubin 0.8 Aspartate Amino Transf (AST/SGOT) 139 H Alanine Aminotransferase (ALT/SGPT) 44 Alkaline Phosphatase 198 H Total Protein 5.6 L Albumin 2.6 L Globulin 3.00 Albumin/Globulin Ratio 0.86 Lipase 325 H Home Meds Reported Medications Ondansetron Hcl* (Zofran*) 4 Mg Tab, 4 MG PO NEEDED PRN for NAUSEA AND OR VOMITING, TAB 10/27/18 Metoprolol Succinate* (Toprol XL*) 50 Mg Tab.er.24h, 50 MG PO BID, #30 TAB 10/27/18 Pantoprazole* (Pantoprazole*) 40 Mg Tablet.dr, 40 MG PO AC BREAKFAST DINNER, TAB 10/27/18 Lisinopril* (Lisinopril*) 20 Mg Tablet, 20 MG PO DAILY, #30 TAB 10/27/18 Sucralfate* (Carafate*) 1 Gm Tab, 1 GM PO AC MEALS AND BEDTIME, TAB 10/27/18 Discontinued Reported Medications Vits W-Ca,Fe,Fa(<1MG) () 1 Tab Tablet, 1 TAB PO DAILY 03/20/12 Vits W-Ca,Fe,Fa(<1MG) () 1 Tab Tablet, 1 TAB PO DAILY 03/20/12 Discontinued Scripts [Lanolin] 1 APPLIC OINT No Conflict Check, 1 APPLIC TOP BEDSIDE MEDICATION PRN for BEDSIDE FOR REBECCA TO NIPPLES for 7 Days, 5 Refills Prov:BEN SALOMON MD 08/14/14 Acetaminophen (TYLENOL 325 MG TAB) 325 Mg Tab, 650 MG PO Q4H PRN for PAIN LEVEL 1-5 for 10 Days, TAB Prov:BEN SALOMON MD 08/14/14 Medications Current Medications IV Flush (NS 3 ml) 3 ml PER PROTOCOL IV ; Start 10/27/18 at 16:30 Ondansetron HCl (Zofran Inj) 4 mg Q6H PRN IV NAUSEA/VOMITING; Start 10/27/18 at 16:30 Morphine Sulfate (morphine) 2 mg Q4H PRN IV .SEVERE PAIN 7-10 Last administered on 10/30/18at 04:17; Admin Dose 2 MG; Start 10/27/18 at 16:30 Pantoprazole (Protonix Iv) 40 mg DAILY@06 IV Last administered on 10/30/18at 05:16; Admin Dose 40 MG; Start 10/28/18 at 06:00 Potassium Chloride 40 meq/ Dextrose/Sodium Chloride 1,020 ml @ 100 mls/hr [id number] IV Last administered on 10/30/18at 00:50; Admin Dose 100 MLS/HR; Start 10/28/18 at 13:00 Phytonadione (Vitamin K) 5 mg ONCE ONCE SC ; Start 10/30/18 at 08:30; Stop 10/30/18 at 08:31; Status UNV Assessment/Plan Hospital Course (Demo Recall) Impression: 1. Abdominal discomfort - no evidence of cholecystitis 2. Chronically abnormal and fluctuating liver tests with extensive negative evaluation - note continued improvement 3. Elevated lipase - no evidence of pancreatitis on CT Plan: Discussed with Dr Flynn Discussed biopsy with Dr Silvestre Left message for Dr. Prado Await biopsy which should be performed today with preliminary results tomorrow Advance diet as tolerated ASHANTI WARREN MD Oct 30, 2018 08:36
[2018-10-30] MEDS ORDERED: ALPRAZOLAM 0.25 MG TAB PO PRN (09:00)
--- NOTE | 2018-10-30 10:26 | PN ---
DATE: 10/30/2018 SUBJECTIVE: The patient continues to have significant abdominal pain, decreased appetite and anxiety . OBJECTIVE: VITAL SIGNS: Temperature 98.6, pulse 61 to 103, respirations 18, blood pressure 96/53, oxygen satura tion 97% on room air. GENERAL: Well-developed female in no acute distress, sitting up in bed. LUNGS: Clear to auscultation bilaterally. HEART: Tachycardic and regular. ABDOMEN: Distended, diffuse tenderness with hepatosplenomegaly. Decreased bowel sounds. EXTREMITIES: No cyanosis, clubbing or edema. LABORATORY DATA: INR of 1.29, PTT 35.3. PT of 16.2. Sodium 144, potassium 4.1, chloride 111, bicar bonate 24, BUN of less than 2, creatinine 0.43, glucose 92, calcium 7.4, AST 139, ALT of 44, alkaline phosphatase 198, albumin 2.6, lipase 325, hemoglobin 8.9, hematocrit 26.9, platelets of 120. White blood cell count 4.0. IMAGING: MRCP shows hepatosplenomegaly and severe hepatic steatosis. Gallbladder distended and cont ains sludge, gallstones without evidence for cholecystitis. Mild bilateral pleural effusions and mil d ascites. ASSESSMENT AND PLAN 1. Hepatosplenomegaly/abdominal pain. The patient is to undergo CT-guided liver biopsy today. Uncl ear etiology to patient's ongoing hepatosplenomegaly and hopefully can get an answer with the biopsy. The patient remains stable after biopsy and likely to go home tomorrow. We will continue with anti emetics, pain medications at this point. 2. Hypertension, stable without meds. Will continue to monitor, but no need for medications at this point. 3. Discharge planning likely discharge for tomorrow if patient remains stable and does well after bi opsy today. Dictated By: JOS VANEGAS MD SR/NTS Conf#: [id number] DID#: [id number] CC: FABY FARFAN MD;*EndCC*
--- NOTE | 2018-10-30 14:07 | HPN ---
Date/Time of Note Date/Time of Note DATE: 10/30/18 TIME: 14:07 Interval H&P Admission Note Pt. seen H&P reviewed: No system changes VERONIKA PETERSON MD Oct 30, 2018 14:07
[2018-10-30] MEDS ORDERED: LIDOCAINE 1% (MPF) 5 ML VIAL ONE (14:52)
[2018-10-31] MEDS: POTASSIUM CHLORIDE 40 MEQ in DEXTROSE 5%-0.9% NACL 1,000 ML IV SCH ×4 (01:02→23:58)
[2018-10-31] MEDS: morphine 2 MG INJ IV PRN ×6 (01:03→22:12)
[2018-10-31 02:06] VITALS: BP 97/58; PULSE 96; RESP 16
[2018-10-31] MEDS: PANTOPRAZOLE 40 MG INJ IV SCH (05:26)
[2018-10-31 08:16] VITALS: BP 86/52; PULSE 103; RESP 18
[2018-10-31] MEDS ORDERED: ALBUTEROL 0.083% (NEB) 2.5 MG/3 ML AMP HHN SCH (08:30)
[2018-10-31] MEDS ORDERED: morphine LIQ (10 MG/5 ML) CUP PO PRN (08:30)
--- NOTE | 2018-10-31 08:54 | PN ---
DATE: 10/31/2018 SUBJECTIVE: The patient complains of more abdominal pain, but also cough, shortness of breath and ch est tightness. OBJECTIVE: VITAL SIGNS: Temperature 99.1 maximum, now 97.6, pulse 96, respirations 16 to 20, blood pressure 97/ 58, oxygen saturation 95% on room air. GENERAL: Well-developed, ill-appearing female sitting up in bed. LUNGS: Rhonchorous cough with increased expiratory phase, scant rhonchi on examination. HEART: Tachycardic but regular. ABDOMEN: Distended, moderate tenderness to minimal palpation with hepatosplenomegaly noted. Decreas ed bowel sounds. LABORATORY DATA: Sodium 141, potassium 3.8, chloride 111, bicarbonate 22, BUN of less than 2, creati nine 0.36, blood sugar of 97, calcium 7.2, AST of 119, ALT of 45, alkaline phosphatase 210, bilirubin is 0.7, lipase is 307. PT 16.3, INR of 1.3, PTT 35.8, white blood cell count 4.8, hemoglobin of 9.5 , hematocrit of 28.9, platelets of 117. ASSESSMENT AND PLAN: 1. Hepatosplenomegaly still unclear diagnosis and await biopsy results and hopefully some medication of diagnosis in order to provide some sort of treatment. The patient's liver tests remain somewhat improved. Continue to monitor. The patient with moderate to severe pain ongoing and the patient is not ready for discharge to home. We will waste/materials exchange specialist to oral medication and see if we can get her un ashleigh control with this. 2. Shortness of breath and cough. The patient with what sounds like inflamed lungs when she coughs and on deep inspiration with some wheezing. The patient will get a STAT chest x-ray as well as ABG, patient is setup for pulmonary embolism as well. We will do albuterol via nebulizer as well to mitul t and do further evaluation. 3. Hypertension. Remains stable off of medications, unclear etiology as to why. We will continue t o monitor and hold blood pressure medications. Dictated By: JOS VANEGAS MD SR/NTS Conf#: [id number] DID#: [id number] CC: FABY FARFAN MD;*EndCC*
[2018-10-31 09:16] VITALS: BP 105/63; PULSE 100
[2018-10-31] MEDS ORDERED: AZITHROMYCIN 500MG/NS (PMX) 250 ML IVPB ONE (13:30)
[2018-10-31] MEDS ORDERED: SOD CHLORIDE 0.9% 100 ML ONE (13:35)
[2018-10-31] MEDS ORDERED: IOHEXOL 300MG/ML 150 ML BTL ONE (13:35)
[2018-10-31 14:49] VITALS: BP 136/61; PULSE 111; RESP 18
--- NOTE | 2018-10-31 15:20 | CONS ---
Consult Date/Type/Reason Admit Date/Time Oct 27, 2018 at 15:43 Initial Consult Date Type of Consultation: GI Date/Time of Note DATE: 10/31/18 TIME: 15:13 Subjective Still complains of abdominal distention Pulmonary ryan as underway by Dr Flynn Denies excessive alcohol Objective Vitals Vital Signs Date Temp Pulse Resp B/P (MAP) Pulse Ox O2 O2 Flow FiO2 Time Delivery Rate 10/31/18 98.7 111 18 136/61 98 Room Air 14:49 (86) 10/31/18 21 10:11 Abdomen: soft, non tender Intake and Output 10/30/18 10/30/18 10/31/18 1515:00 23:00 07:00 IntakeIntake Total 450 ml 1360 ml OutputOutput Total 240 ml BalanceBalance 210 ml 1360 ml Results/Medications Result Diagram: 10/31/18 0515 10/31/18 0515 Results 24 hrs Laboratory Tests Test 10/30/18 17:33 10/31/18 05:15 10/31/18 08:19 White Blood Count 4.7 L 4.8 Red Blood Count 2.61 L 2.63 L Hemoglobin 9.4 L 9.5 L Hematocrit 29.1 L 28.9 L Mean Corpuscular Volume 111.5 H 109.9 H Mean Corpuscular Hemoglobin 36.0 H 36.1 H Mean Corpuscular 32.3 32.9 Hemoglobin Concent Red Cell Distribution Width 13.5 13.6 Platelet Count 135 L 117 L Mean Platelet Volume 10.7 H 11.8 H Immature Granulocytes % 0.400 0.400 Neutrophils % 71.6 71.6 Lymphocytes % 15.6 15.3 Monocytes % 10.8 11.1 H Eosinophils % 0.8 0.6 Basophils % 0.8 1.0 Nucleated Red Blood Cells % 0.0 0.0 Immature Granulocytes # 0.020 0.020 Neutrophils # 3.4 3.4 Lymphocytes # 0.7 L 0.7 L Monocytes # 0.5 0.5 Eosinophils # 0.0 0.0 Basophils # 0.0 0.1 Nucleated Red Blood Cells # 0.0 0.0 Prothrombin Time 16.3 H Prothrombin Time Ratio 1.3 INR International 1.30 Normalized Ratio Activated 35.8 H Partial Thromboplast Time Sodium Level 141 Potassium Level 3.8 Chloride Level 111 H Carbon Dioxide Level 22 Anion Gap 8 Blood Urea Nitrogen < 2 L Creatinine 0.36 L Est Glomerular Filtrat > 60 Rate mL/min Glucose Level 97 Calcium Level 7.2 L Total Bilirubin 0.7 Direct Bilirubin 0.00 Indirect Bilirubin 0.7 Aspartate Amino 119 H Transf (AST/SGOT) Alanine 45 Aminotransferase (ALT/SGPT) Alkaline Phosphatase 210 H Total Protein 5.9 L Albumin 2.6 L Globulin 3.30 H Albumin/Globulin Ratio 0.78 Lipase 307 H Blood Gas Specimen Source Blood arterial Arterial Blood Date Drawn 10/31/2018 8:30:36 AM Arterial Blood pH 7.454 H (Temp corrected) Arterial Blood pCO2 31.8 L (Temp correct) Arterial Blood pO2 70.5 L (Temp corrected) Arterial Blood HCO3 21.8 L Arterial Blood Base Excess -1.5 Arterial Blood 94.1 L Oxygen Saturation Jayy Test ACCEPTAB Arterial Blood Gas Right Radial Puncture Site Arterial 0.1 Blood Carboxyhemoglobin Arterial Blood Methemoglobin 0.1 Blood Gas A-a O2 41.2 H Differential Oxyhemoglobin Percent 93.9 Blood Gas Temperature 37.0 Blood Gas Modality ROOM AIR FiO2 21.0 Blood Gas Notified Whom TM Blood Gas Notified Time 10/31/2018 8:38:15 AM Home Meds Reported Medications Ondansetron Hcl* (Zofran*) 4 Mg Tab, 4 MG PO NEEDED PRN for NAUSEA AND OR VOMITING, TAB 10/27/18 Metoprolol Succinate* (Toprol XL*) 50 Mg Tab.er.24h, 50 MG PO BID, #30 TAB 10/27/18 Pantoprazole* (Pantoprazole*) 40 Mg Tablet.dr, 40 MG PO AC BREAKFAST DINNER, TAB 10/27/18 Lisinopril* (Lisinopril*) 20 Mg Tablet, 20 MG PO DAILY, #30 TAB 10/27/18 Sucralfate* (Carafate*) 1 Gm Tab, 1 GM PO AC MEALS AND BEDTIME, TAB 10/27/18 Discontinued Reported Medications Vits W-Ca,Fe,Fa(<1MG) () 1 Tab Tablet, 1 TAB PO DAILY 03/20/12 Vits W-Ca,Fe,Fa(<1MG) () 1 Tab Tablet, 1 TAB PO DAILY 03/20/12 Discontinued Scripts [Lanolin] 1 APPLIC OINT No Conflict Check, 1 APPLIC TOP BEDSIDE MEDICATION PRN for BEDSIDE FOR REBECCA TO NIPPLES for 7 Days, 5 Refills Prov:BEN SALOMON MD 08/14/14 Acetaminophen (TYLENOL 325 MG TAB) 325 Mg Tab, 650 MG PO Q4H PRN for PAIN LEVEL 1-5 for 10 Days, TAB Prov:BEN SALOMON MD 08/14/14 Medications Current Medications IV Flush (NS 3 ml) 3 ml PER PROTOCOL IV ; Start 10/27/18 at 16:30 Ondansetron HCl (Zofran Inj) 4 mg Q6H PRN IV NAUSEA/VOMITING; Start 10/27/18 at 16:30 Morphine Sulfate (morphine) 2 mg Q4H PRN IV .SEVERE PAIN 7-10 Last administered on 10/31/18at 14:02; Admin Dose 2 MG; Start 10/27/18 at 16:30 Pantoprazole (Protonix Iv) 40 mg DAILY@06 IV Last administered on 10/31/18at 05:26; Admin Dose 40 MG; Start 10/28/18 at 06:00 Potassium Chloride 40 meq/ Dextrose/Sodium Chloride 1,020 ml @ 100 mls/hr [id number] IV Last administered on 10/31/18at 10:21; Admin Dose 100 MLS/HR; Start 10/28/18 at 13:00 Alprazolam (Xanax) 0.25 mg HS PRN PO anxiety/insomnia; Start 10/30/18 at 09:00 Morphine Sulfate (morphine) 5 mg Q3H PRN PO SEVERE PAIN LEVEL 7-10; Start 10/31/18 at 08:30 Doxycycline Hyclate (Vibramycin) 100 mg BID PO ; Start 10/31/18 at 21:00 Hydroxyzine HCl (Atarax) 10 mg Q6H PRN PO ITCHING; Start 10/31/18 at 13:00 Benzonatate (Tessalon) 100 mg TID PO ; Start 10/31/18 at 21:00 Assessment/Plan Hospital Course (Demo Recall) Impression: 1. Abdominal discomfort - resolving 2. Chronically abnormal and fluctuating liver tests - await final pathology report, although Dr Silvestre on initial review raises possibility of LEDESMA - Non alcoholic steatohepatitis, and possible Mita bodies 3. Elevated lipase - wonder about alcohol intake, given possible Malllory bodies Plan: Discussed biopsy with Dr Silvestre - await his final review and diagnosis pen ding staining etc Await final biopsy results Advance diet as tolerated I will leave current in hospital management to Dr Flynn I have asked patient to arrange outpatient office followup once final biopsy results available ASHANTI WARREN MD Oct 31, 2018 15:20
[2018-10-31 20:00] VITALS: BP 129/71; PULSE 106; RESP 18
[2018-10-31] MEDS: BENZONATATE 100 MG CAP PO SCH (20:25)
[2018-10-31] MEDS: DOXYCYCLINE 100 MG TAB PO SCH (20:25)
[2018-10-31] MEDS ORDERED: FUROSEMIDE 20 MG INJ IV ONE (21:00)
[2018-10-31 22:32] VITALS: PULSE 94
[2018-11-01 02:00] VITALS: BP 99/63; PULSE 90; RESP 18
[2018-11-01] MEDS: morphine 2 MG INJ IV PRN ×5 (03:06→20:30)
[2018-11-01] MEDS: PANTOPRAZOLE 40 MG INJ IV SCH (06:02)
[2018-11-01 07:53] VITALS: BP 104/59; PULSE 97; RESP 18
[2018-11-01] MEDS: BENZONATATE 100 MG CAP PO SCH ×4 (08:10→20:30)
[2018-11-01] MEDS: DOXYCYCLINE 100 MG TAB PO SCH ×2 (08:10→08:12)
[2018-11-01] MEDS ORDERED: FUROSEMIDE 20 MG INJ IV ONE (08:30)
[2018-11-01 10:00] VITALS: BP 110/56; PULSE 96
--- NOTE | 2018-11-01 10:25 | PN ---
DATE: 11/01/2018 SUBJECTIVE: The patient has less shortness of breath, but still has a problem taking deep breaths an d then feels chest tightness. The patient has slightly decreased abdominal pain and no more itching on her skin. OBJECTIVE: VITAL SIGNS: Temperature 97.7, pulse is 97, respirations 18, blood pressure 104/59, oxygen saturatio n 100% on room air. GENERAL: Well-developed, well-nourished female in no acute distress, lying in bed. CHEST: Decreased breath sounds in the bilateral bases with increased dullness approximately 1/[address] ABDOMEN: Positive bowel sounds. Mild distention. There is hepatosplenomegaly. There is mild to mo derate tenderness to palpation. NEUROLOGIC: Nonfocal. LABORATORY DATA: Sodium 139, potassium 4.2, chloride 108, bicarbonate 26, BUN of less than 2, creati nine 0.43, glucose of 90, calcium 7.4, total bilirubin 0.8, AST of 108, ALT of 40, alkaline phosphata se 197, albumin 2.5, hemoglobin of 9.0, hematocrit 27.2, platelets of 138, white blood cell count 5.1 . IMAGING STUDIES: CT scan of the chest shows large bilateral pleural effusions, bibasilar atelectasis but no acute infiltrates or pneumothorax, nodules or masses. There is hepatic steatosis and upper a bdominal ascites. Chest x-ray shows bilateral lower lobe infiltrate and small to moderate bilateral pleural effusions. ASSESSMENT AND PLAN: 1. Pleural effusions, likely related to passive fluid accumulation related to her ascites. The fiordaliza ent is to undergo ultrasound-guided thoracentesis today. We will also give another dose of diuretics as the patient did respond to diuresis given last night. 2. Hepatic steatosis. The patient's liver biopsy shows significant hepatic steatosis with significa nt number of Mita bodies more consistent with alcoholic liver disease rather than other. No evide nce of any malignancy. We will have to discuss this with the patient as the patient only describes d rinking 1 to 2 drinks per week. We will continue with pain control and advancing diet. 3. Hypertension, remains stable off medications. We will continue to monitor, but no medications ne eded to be given at this time. 4. Rash, resolved, unclear etiology, but started after the patient's biopsy. We will continue to mo nitor, but no medications needed at this time. Dictated By: JOS VANEGAS MD SR/NTS Conf#: [id number] DID#: [id number] CC: FABY FARFAN MD;*EndCC*
[2018-11-01] MEDS ORDERED: LIDOCAINE 1% (MPF) 5 ML VIAL ONE (10:26)
[2018-11-01 10:35] VITALS: BP 101/65; PULSE 96
[2018-11-01] MEDS: POTASSIUM CHLORIDE 40 MEQ in DEXTROSE 5%-0.9% NACL 1,000 ML IV SCH ×2 (13:19→23:27)
[2018-11-01 14:18] VITALS: BP 102/63; PULSE 90; RESP 18
[2018-11-01 20:00] VITALS: BP 102/60; PULSE 95; RESP 19
[2018-11-02] VITALS (7 sets, daily range): BP systolic 93–108; BP diastolic 51–72; PULSE 90–96; RESP 16–19
[2018-11-02] MEDS: morphine 2 MG INJ IV PRN ×6 (00:31→23:01)
[2018-11-02] MEDS: POTASSIUM CHLORIDE 40 MEQ in DEXTROSE 5%-0.9% NACL 1,000 ML IV SCH ×3 (05:12→23:59)
[2018-11-02] MEDS: FAMOTIDINE 20 MG INJ IV SCH (06:31)
[2018-11-02] MEDS ORDERED: FUROSEMIDE 20 MG INJ IV ONE (07:00)
[2018-11-02] MEDS ORDERED: MAGNESIUM SULFATE 3 GM in DEXTROSE 5% 100 ML IVPB ONE (07:00)
--- NOTE | 2018-11-02 07:42 | PN ---
DATE: 11/02/2018 SUBJECTIVE: The patient is feeling a little bit better. No cough, less shortness of breath and less abdominal pain. OBJECTIVE: VITAL SIGNS: Temperature 98.3, pulse 90, respirations 18, blood pressure 93/51, oxygen saturation 100% on room air. GENERAL: Well-developed, well-nourished female, in no acute distress, sitting up in bed. CHEST: Decreased breath sounds at bilateral bases, right greater than left with increased dullness approximately 1/4 up on the right, minimal at left base, otherwise, clear. HEART: Tachycardic, regular. ABDOMEN: Soft, mild distention. Moderate right upper quadrant tenderness with hepatosplenomegaly noted. LABORATORY DATA: White blood cell count 5.1, hemoglobin 9.0, hematocrit 26.9, platelets 145. Sodium 140, potassium 4.0, chloride 108, bicarbonate 26, BUN less than 2, creatinine 0.49, glucose of 94, magnesium 1.1. GGT of 960, AST of 94, ALT of 39, alkaline phosphatase 184. PTT of 38.6, INR of 1.39. PT of 17.2. ASSESSMENT AND PLAN: 1. Hepatosplenomegaly. The patient with biopsy showing hepatic steatosis, likely related to alcohol. The patient with only minimal alcohol intake per her history, so unclear if this is the true cause of her problem. The patient tends to not drink at all after discharge. We will continue to monitor, but levels are improving and pain is improving. We will continue to monitor. 2. Pleural effusions, improved after thoracentesis and removal of 800 mL of fluid from the left. The patient is to undergo a right-sided ultrasound-guided thoracentesis today. We will also give Lasix x1 to continue to improve the edema that she has and ascites. 3. Anemia, stable. Continue to monitor, but no need for transfusion. 4. Hypertension, stable off medications. We will continue to monitor, but no need for blood pressure medications. 5. Hypomagnesemia. We will give 3 grams of IV magnesium today to replace. Dictated By: JOS VANEGAS MD SR/NTS Conf#: [id number] DID#: [id number] CC: FABY FARFAN MD;*End* [facility]
[2018-11-02] MEDS: BENZONATATE 100 MG CAP PO SCH ×3 (09:00→20:46)
[2018-11-02] MEDS ORDERED: LIDOCAINE 1% (MPF) 5 ML VIAL ONE (10:14)
[2018-11-02] MEDS: hydrOXYzine HCL 10 MG TAB PO PRN (23:01)
[2018-11-03 02:00] VITALS: BP 92/53; PULSE 66; RESP 19
[2018-11-03] MEDS: morphine 2 MG INJ IV PRN ×5 (04:42→22:16)
[2018-11-03] MEDS: FAMOTIDINE 20 MG INJ IV SCH (05:14)
[2018-11-03 07:20] VITALS: BP 114/64; PULSE 87; RESP 16
[2018-11-03] MEDS ORDERED: FUROSEMIDE 20 MG INJ IV ONE (08:00)
--- NOTE | 2018-11-03 08:39 | PN ---
DATE: 11/03/2018 SUBJECTIVE: The patient is feeling worse, more shortness of breath, cough, and abdominal pain. The patient feels more bloated. OBJECTIVE: VITAL SIGNS: Temperature 98.3, pulse 66, respirations 19, blood pressure 92/53, oxygen saturation 98 % on room air. GENERAL: Well-developed female in no acute distress, lying in bed. CHEST: Decreased breath sounds bilateral bases with mild dullness to percussion in bilateral bases. HEART: Regular rate and rhythm. ABDOMEN: Distended, soft, with moderate tenderness to palpation with hepatosplenomegaly noted. LABORATORY DATA: Sodium 136, potassium 4.0, chloride 107, bicarbonate 24, BUN less than 2, creatinin e 0.43, glucose 88. Magnesium 1.7, calcium 7.6, AST 104, ALT of 37, alkaline phosphatase is 184, alb umin 2.3. INR is 1.42. PT of 17.5, PTT of 40.5, hemoglobin of 8.9, hematocrit 26.6. White blood ce ll count 4.6, platelets of 132. ASSESSMENT AND PLAN: 1. Hepatosplenomegaly. The patient with increased abdominal pain, distention and feeling worse toda y. We will continue with pain medications. Will add Spironolactone 50 mg daily and give 1 dose of L asix today. The patient not ready for discharge to home as patient's symptoms have worsened and fiordaliza ent will need ongoing monitoring and adjustment of medications. 2. Pleural effusions. The patient improved initially yesterday after thoracentesis, but patient wit h increased symptoms today with increased cough, shortness of breath. Will do chest x-ray to rule ou t pneumothorax as well as reaccumulation of fluid. 3. Hypomagnesemia. Will give 2 grams of IV magnesium. 4. Hypertension. Remains low despite no medications. We will continue to monitor, but no need for blood pressure medications at this point. DISCHARGE PLAN: The patient stable for discharge to home. We will continue with adjustments of medi cations for evaluating the effusions and get pain under better control. Dictated By: JOS VANEGAS MD SR/NTS Conf#: [id number] DID#: [id number] CC: FABY FARFAN MD;*End*
[2018-11-03] MEDS ORDERED: PHYTONADIONE 10 MG in DEXTROSE 5% 50 ML IVPB ONE (09:00)
[2018-11-03] MEDS ORDERED: MAGNESIUM SULFATE 2 GM/50 ML 50 ML IVPB ONE (09:00)
[2018-11-03] MEDS: SPIRONOLACTONE 50 MG TAB PO SCH (09:17)
[2018-11-03] MEDS: BENZONATATE 100 MG CAP PO SCH ×3 (09:17→20:23)
[2018-11-03 14:48] VITALS: BP 107/71; PULSE 84; RESP 16
[2018-11-03 20:36] VITALS: BP 107/75; PULSE 91; RESP 18
[2018-11-04] MEDS: morphine 2 MG INJ IV PRN ×6 (02:31→22:58)
[2018-11-04 02:43] VITALS: BP 116/74; PULSE 98; RESP 20
[2018-11-04] MEDS: FAMOTIDINE 20 MG INJ IV SCH (05:22)
[2018-11-04 08:45] VITALS: BP 92/54; PULSE 85; RESP 18
[2018-11-04] MEDS: SPIRONOLACTONE 50 MG TAB PO SCH (08:51)
[2018-11-04] MEDS: BENZONATATE 100 MG CAP PO SCH ×3 (08:52→20:35)
[2018-11-04 14:00] VITALS: BP 100/55; PULSE 80; RESP 18
--- NOTE | 2018-11-04 16:27 | PN ---
Date/Time of Note Date/Time of Note DATE: 11/04/18 TIME: 16:24 Assessment/Plan VTE [place] [facility] [place]: 2 [place] [facility] [place] SCD contraindicated: low risk/ambulating Pharmacological prophylaxis: NA/contraindicated Pharm contraindication: liver dx Lines/Catheters IV [facility] Saline Lock Urinary Cath still in place: No Assessment/Plan Problems: (1) Steatohepatitis Status: Chronic Comment: s/p liver biopsy, awaiting pathology report (2) Pleural effusion Status: Acute Comment: s/p thoracentesis. (3) Anemia Status: Acute Comment: may be due to splenomegaly but will start work up for macrocytic anemia. Check b12, folate, tft's. (4) Abdominal pain Status: Acute Comment: related to pancreatitis and hepatitis. Qualifiers: Abdominal location: generalized Qualified Codes: R10.84 - Generalized abdominal pain Result Diagram: 11/04/18 0422 11/04/18 0421 Results 24hrs Laboratory Tests Test 11/04/18 04:21 11/04/18 04:22 Sodium Level 135 Potassium Level 3.9 Chloride Level 103 Carbon Dioxide Level 25 Anion Gap 7 Blood Urea Nitrogen 2 L Creatinine 0.45 Est Glomerular Filtrat Rate mL/min > 60 Glucose Level 72 Calcium Level 8.5 Magnesium Level 1.7 Total Bilirubin 0.8 Direct Bilirubin 0.00 Indirect Bilirubin 0.8 Aspartate Amino Transf (AST/SGOT) 129 H Alanine Aminotransferase (ALT/SGPT) 36 Alkaline Phosphatase 208 H Total Protein 5.6 L Albumin 2.5 L Globulin 3.10 Albumin/Globulin Ratio 0.80 Lipase 612 H White Blood Count 5.9 # Red Blood Count 2.65 L Hemoglobin 9.7 L Hematocrit 28.7 L Mean Corpuscular Volume 108.3 H Mean Corpuscular Hemoglobin 36.6 H Mean Corpuscular Hemoglobin Concent 33.8 Red Cell Distribution Width 13.0 Platelet Count 148 Mean Platelet Volume 11.0 H Immature Granulocytes % 0.300 Neutrophils % 71.5 Lymphocytes % 15.0 Monocytes % 11.2 H Eosinophils % 1.0 Basophils % 1.0 Nucleated Red Blood Cells % 0.0 Immature Granulocytes # 0.020 Neutrophils # 4.2 Lymphocytes # 0.9 Monocytes # 0.7 Eosinophils # 0.1 Basophils # 0.1 Nucleated Red Blood Cells # 0.0 Prothrombin Time 16.5 H Prothrombin Time Ratio 1.3 INR International Normalized Ratio 1.32 Activated Partial Thromboplast Time 38.8 H Subjective 24 Hr Interval Summary Free Text/Dictation Patient still with mild abd pain , especially after eating. Exam/Review of Systems Exam Vitals Vital Signs Date Temp Pulse Resp B/P (MAP) Pulse Ox O2 O2 Flow FiO2 Time Delivery Rate 11/04/18 98.7 85 18 92/54 (67) 97 08:45 11/03/18 Room Air 14:48 10/31/18 21 10:11 Intake and Output 11/03/18 11/03/18 11/04/18 1515:00 23:00 07:00 IntakeIntake Total 1101 ml 1400 ml 400 ml BalanceBalance 1101 ml 1400 ml 400 ml Constitutional: alert, oriented Head: normocephalic, atraumatic Neck: supple Respiratory: clear to auscultation Cardiovascular: regular rate and rhythm Gastrointestinal: soft, non-tender Musculoskeletal: nl extremities to inspection Results Results 24hrs Laboratory Tests Test 11/04/18 04:21 11/04/18 04:22 Sodium Level 135 Potassium Level 3.9 Chloride Level 103 Carbon Dioxide Level 25 Anion Gap 7 Blood Urea Nitrogen 2 L Creatinine 0.45 Est Glomerular Filtrat Rate mL/min > 60 Glucose Level 72 Calcium Level 8.5 Magnesium Level 1.7 Total Bilirubin 0.8 Direct Bilirubin 0.00 Indirect Bilirubin 0.8 Aspartate Amino Transf (AST/SGOT) 129 H Alanine Aminotransferase (ALT/SGPT) 36 Alkaline Phosphatase 208 H Total Protein 5.6 L Albumin 2.5 L Globulin 3.10 Albumin/Globulin Ratio 0.80 Lipase 612 H White Blood Count 5.9 # Red Blood Count 2.65 L Hemoglobin 9.7 L Hematocrit 28.7 L Mean Corpuscular Volume 108.3 H Mean Corpuscular Hemoglobin 36.6 H Mean Corpuscular Hemoglobin Concent 33.8 Red Cell Distribution Width 13.0 Platelet Count 148 Mean Platelet Volume 11.0 H Immature Granulocytes % 0.300 Neutrophils % 71.5 Lymphocytes % 15.0 Monocytes % 11.2 H Eosinophils % 1.0 Basophils % 1.0 Nucleated Red Blood Cells % 0.0 Immature Granulocytes # 0.020 Neutrophils # 4.2 Lymphocytes # 0.9 Monocytes # 0.7 Eosinophils # 0.1 Basophils # 0.1 Nucleated Red Blood Cells # 0.0 Prothrombin Time 16.5 H Prothrombin Time Ratio 1.3 INR International Normalized Ratio 1.32 Activated Partial Thromboplast Time 38.8 H Medications Medication Current Medications IV Flush (NS 3 ml) 3 ml PER PROTOCOL IV ; Start 10/27/18 at 16:30 Ondansetron HCl (Zofran Inj) 4 mg Q6H PRN IV NAUSEA/VOMITING; Start 10/27/18 at 16:30 Morphine Sulfate (morphine) 2 mg Q4H PRN IV .SEVERE PAIN 7-10 Last administered on 11/04/18at 14:45; Admin Dose 2 MG; Start 10/27/18 at 16:30 Alprazolam (Xanax) 0.25 mg HS PRN PO anxiety/insomnia; Start 10/30/18 at 09:00 Morphine Sulfate (morphine) 5 mg Q3H PRN PO SEVERE PAIN LEVEL 7-10; Start 10/31/18 at 08:30 Hydroxyzine HCl (Atarax) 10 mg Q6H PRN PO ITCHING Last administered on 11/02/18at 23:01; Admin Dose 10 MG; Start 10/31/18 at 13:00 Benzonatate (Tessalon) 100 mg TID PO Last administered on 11/04/18at 12:34; Admin Dose 100 MG; Start 10/31/18 at 21:00 Famotidine (Pepcid Iv) 20 mg DAILY@0600 IV Last administered on 11/04/18at 05:22; Admin Dose 20 MG; Start 11/02/18 at 06:00 Spironolactone (Aldactone) 50 mg DAILY PO Last administered on 11/04/18at 08:51; Admin Dose 50 MG; Start 11/03/18 at 09:00 JOSH GONZALEZ MD Nov 04, 2018 16:27
[2018-11-04 20:00] VITALS: BP 100/71; PULSE 69; RESP 18
[2018-11-05 02:00] VITALS: BP 92/55; PULSE 90; RESP 16
[2018-11-05] MEDS: morphine 2 MG INJ IV PRN ×4 (04:00→15:59)
[2018-11-05] MEDS: FAMOTIDINE 20 MG INJ IV SCH (05:14)
[2018-11-05] MEDS: BENZONATATE 100 MG CAP PO SCH ×3 (08:02→19:55)
[2018-11-05] MEDS: SPIRONOLACTONE 50 MG TAB PO SCH (08:02)
[2018-11-05 08:31] VITALS: BP 91/59; PULSE 87; RESP 17
[2018-11-05 14:05] VITALS: BP 101/58; PULSE 93; RESP 17
--- NOTE | 2018-11-05 15:46 | PN ---
Date/Time of Note Date/Time of Note DATE: 11/05/18 TIME: 15:45 Assessment/Plan VTE Prophylaxis Risk score (from [facility] [place]0 risk: 2 SCD applied (from [facility] [place]): No SCD contraindicated: low risk/ambulating Pharmacological prophylaxis: NA/contraindicated Pharm contraindication: liver dx Lines/Catheters IV Catheter Type (from [facility]): Saline Lock Urinary Cath still in place: No Assessment/Plan Assessment/Plan (1) Steatohepatitis Status: Chronic Comment: s/p liver biopsy, awaiting pathology report (2) Pleural effusion Status: Acute Comment: s/p thoracentesis. (3) Anemia Status: Acute Comment: probably due to splenomegaly. May need heme/onc consult. (4) Abdominal pain Status: Acute Comment: related to pancreatitis and hepatitis. Increase morphine dose for now. Result Diagram: 11/05/18 0418 11/04/18 0421 Results 24hrs Laboratory Tests Test 11/05/18 04:18 White Blood Count 6.1 Red Blood Count 2.86 L Hemoglobin 10.1 L Hematocrit 30.8 L Mean Corpuscular Volume 107.7 H Mean Corpuscular Hemoglobin 35.3 H Mean Corpuscular Hemoglobin Concent 32.8 Red Cell Distribution Width 12.7 Platelet Count 153 Mean Platelet Volume 10.8 H Immature Granulocytes % 0.500 H Neutrophils % 62.6 Lymphocytes % 21.6 Monocytes % 12.9 H Eosinophils % 1.3 Basophils % 1.1 Nucleated Red Blood Cells % 0.0 Immature Granulocytes # 0.030 Neutrophils # 3.8 Lymphocytes # 1.3 Monocytes # 0.8 Eosinophils # 0.1 Basophils # 0.1 Nucleated Red Blood Cells # 0.0 Vitamin B12 Level 980 H Folate 7.0 Subjective 24 Hr Interval Summary Free Text/Dictation Patient complains of increased abdominal pain with eating. Exam/Review of Systems Exam Vitals Vital Signs Date Temp Pulse Resp B/P (MAP) Pulse Ox O2 O2 Flow FiO2 Time Delivery Rate 11/05/18 98.5 93 17 101/58 96 Room Air 14:05 (72) Intake and Output 11/04/18 11/04/18 11/05/18 1515:00 23:00 07:00 IntakeIntake Total 900 ml 400 ml 300 ml BalanceBalance 900 ml 400 ml 300 ml Constitutional: alert, oriented Respiratory: clear to auscultation Cardiovascular: regular rate and rhythm Gastrointestinal: soft, tender Musculoskeletal: nl extremities to inspection Results Results 24hrs Laboratory Tests Test 11/05/18 04:18 White Blood Count 6.1 Red Blood Count 2.86 L Hemoglobin 10.1 L Hematocrit 30.8 L Mean Corpuscular Volume 107.7 H Mean Corpuscular Hemoglobin 35.3 H Mean Corpuscular Hemoglobin Concent 32.8 Red Cell Distribution Width 12.7 Platelet Count 153 Mean Platelet Volume 10.8 H Immature Granulocytes % 0.500 H Neutrophils % 62.6 Lymphocytes % 21.6 Monocytes % 12.9 H Eosinophils % 1.3 Basophils % 1.1 Nucleated Red Blood Cells % 0.0 Immature Granulocytes # 0.030 Neutrophils # 3.8 Lymphocytes # 1.3 Monocytes # 0.8 Eosinophils # 0.1 Basophils # 0.1 Nucleated Red Blood Cells # 0.0 Vitamin B12 Level 980 H Folate 7.0 Medications Medication Current Medications IV Flush (NS 3 ml) 3 ml PER PROTOCOL IV ; Start 10/27/18 at 16:30 Ondansetron HCl (Zofran Inj) 4 mg Q6H PRN IV NAUSEA/VOMITING; Start 10/27/18 at 16:30 Morphine Sulfate (morphine) 2 mg Q4H PRN IV .SEVERE PAIN 7-10 Last administered on 11/05/18at 12:03; Admin Dose 2 MG; Start 10/27/18 at 16:30 Alprazolam (Xanax) 0.25 mg HS PRN PO anxiety/insomnia; Start 10/30/18 at 09:00 Morphine Sulfate (morphine) 5 mg Q3H PRN PO SEVERE PAIN LEVEL 7-10; Start 10/31/18 at 08:30 Hydroxyzine HCl (Atarax) 10 mg Q6H PRN PO ITCHING Last administered on 11/02/18at 23:01; Admin Dose 10 MG; Start 10/31/18 at 13:00 Benzonatate (Tessalon) 100 mg TID PO Last administered on 11/05/18at 12:02; Admin Dose 100 MG; Start 10/31/18 at 21:00 Famotidine (Pepcid Iv) 20 mg DAILY@0600 IV Last administered on 11/05/18at 05:14; Admin Dose 20 MG; Start 11/02/18 at 06:00 Spironolactone (Aldactone) 50 mg DAILY PO Last administered on 11/05/18at 08:02; Admin Dose 50 MG; Start 11/03/18 at 09:00 JOSH GONZALEZ MD Nov 05, 2018 15:46
[2018-11-05] MEDS: morphine 4 MG/ML VIAL IV PRN ×2 (18:59→22:58)
[2018-11-05 20:00] VITALS: BP 105/65; PULSE 92; RESP 18
[2018-11-05] MEDS ORDERED: morphine 4 MG/ML VIAL IV PRN (20:30)
[2018-11-06 02:10] VITALS: BP 113/68; PULSE 80; RESP 19
[2018-11-06] MEDS: morphine 4 MG/ML VIAL IV PRN ×3 (03:17→11:15)
[2018-11-06] MEDS: FAMOTIDINE 20 MG INJ IV SCH (05:43)
--- NOTE | 2018-11-06 08:01 | PN ---
DATE: 11/06/2018 SUBJECTIVE: The patient is feeling worse with increased abdominal pain, more cough. OBJECTIVE: VITAL SIGNS: Temperature 98.5, pulse 80, respirations 18, blood pressure 113/68, oxygen saturation 1 00% on room air. GENERAL: Well-developed female, in mild distress secondary to abdominal pain, lying in bed. CHEST: Decreased breath sounds at bilateral bases with increased dullness approximately 1/4 up other stephens clear. HEART: Regular rate and rhythm. ABDOMEN: Moderate tenderness with hepatosplenomegaly. NEUROLOGIC: Nonfocal. LABORATORY DATA: Hemoglobin 10.3, hematocrit 31.6, platelets 165. White blood cell count 6.9. Chem istry panel is pending. ASSESSMENT AND PLAN: 1. Hepatosplenomegaly/hepatic steatosis. The patient continues to have significant abdominal pain a nd the patient is not ready for discharge. I encourage the patient to try oral medication to see if we can get her pain under control with orals prior to discharge. We will continue to monitor liver f unction test. Continue with current diet. We will follow amylase and lipase as they have been eleva katalina in the last few days. Although the patient's symptoms seem to be related to pancreatitis. 2. Anemia, improved. We will continue to monitor, but no need for transfusion. 3. Hypertension, stable with no medications. We will continue to monitor. 4. Hypomagnesemia. We will give 2 grams of IV magnesium. Dictated By: JOS VANEGAS MD SR/NTS Conf#: [id number] DID#: [id number] CC: FABY FARFAN MD;*EndCC*
[2018-11-06 08:16] VITALS: BP 101/58; PULSE 91; RESP 17
[2018-11-06] MEDS ORDERED: MAGNESIUM SULFATE 2 GM/50 ML 50 ML IVPB ONE (08:30)
[2018-11-06] MEDS: SPIRONOLACTONE 50 MG TAB PO SCH (08:44)
[2018-11-06] MEDS: BENZONATATE 100 MG CAP PO SCH ×3 (08:44→20:58)
[2018-11-06 15:06] VITALS: BP 101/58; PULSE 86; RESP 17
[2018-11-06] MEDS: morphine LIQ (10 MG/5 ML) CUP PO PRN ×3 (15:21→21:43)
[2018-11-06 20:00] VITALS: BP 109/61; PULSE 84; RESP 18
[2018-11-07] MEDS: morphine LIQ (10 MG/5 ML) CUP PO PRN ×7 (01:46→23:33)
[2018-11-07 02:00] VITALS: BP 94/65; PULSE 74; RESP 17
--- NOTE | 2018-11-07 07:44 | PN ---
DATE: 11/07/2018 SUBJECTIVE: The patient is feeling a little bit better, but still has moderate to severe abdominal p ain and cough and chest tightness. OBJECTIVE: VITAL SIGNS: Temperature 98.4, pulse 74, respirations 17, blood pressure 94/65, oxygen saturation 10 0% on room air. GENERAL: Well-developed, well-appearing female, in no acute distress, lying in bed. CHEST: Decreased breath sounds at bilateral bases with scant crackles and dullness to percussion, ot herwise clear. HEART: Regular rate and rhythm. ABDOMEN: Moderate tenderness to palpation with moderate hepatosplenomegaly. Normoactive bowel sound s. LABORATORY DATA: Sodium 138, potassium 4.4, chloride 101, bicarbonate 32, BUN of less than 2, creati nine 0.54, glucose of 69, magnesium 1.4, calcium 8.6, AST of 149, ALT of 36, alkaline phosphatase 184 , albumin 2.5, lipase of 382. ASSESSMENT AND PLAN: 1. Hepatosplenomegaly/hepatic steatosis. The patient with some improvement, but continues to have m oderate to severe pain. We will continue current plan of action, better pain control. Hopefully, di scharge in the next day or two if patient improves further. 2. Hypomagnesemia. We will give 3 grams of IV magnesium as replacement. 3. Anemia. Stable. No need for transfusion. We will continue to monitor. 4. Hypertension, stable without medications. Continue to monitor, but no need for medications at th is time. 5. Pleural effusion, stable. We will continue with oral diuretics. No need for further thoracentes is at that time. Dictated By: JOS VANEGAS MD SR/NTS Conf#: [id number] DID#: [id number] CC: FABY FARFAN MD;*EndCC*
[2018-11-07] MEDS: SPIRONOLACTONE 50 MG TAB PO SCH (08:12)
[2018-11-07] MEDS: BENZONATATE 100 MG CAP PO SCH ×3 (08:12→20:26)
[2018-11-07] MEDS: FAMOTIDINE 20 MG TAB PO SCH (08:14)
[2018-11-07 08:25] VITALS: BP 103/66; PULSE 94; RESP 18
[2018-11-07] MEDS ORDERED: PHYTONADIONE 10 MG in DEXTROSE 5% 50 ML IVPB ONE (08:30)
[2018-11-07] MEDS ORDERED: MAGNESIUM SULFATE 3 GM in DEXTROSE 5% 100 ML IVPB ONE (08:30)
[2018-11-07 15:03] VITALS: BP 122/58; PULSE 88; RESP 16
[2018-11-07 20:00] VITALS: BP 116/64; PULSE 90; RESP 18
[2018-11-08 02:00] VITALS: BP 96/50; PULSE 71; RESP 17
[2018-11-08] MEDS: morphine LIQ (10 MG/5 ML) CUP PO PRN ×7 (02:49→21:21)
[2018-11-08 08:05] VITALS: BP 126/82; PULSE 87; RESP 16
--- NOTE | 2018-11-08 08:06 | PN ---
DATE: 11/08/2018 SUBJECTIVE: The patient is feeling worse today, with more belly pain, nausea and some vomiting. The patient is feeling weaker. OBJECTIVE: VITAL SIGNS: Temperature 98.5, pulse 71, respirations 17, blood pressure 96/50, oxygen saturation 97 %. GENERAL: Well-developed, well-nourished female in mild distress, lying in bed. CHEST: Decreased breath sounds at bilateral bases with scant crackles. HEART: Regular rate and rhythm. ABDOMEN: Diffusely tender with moderate hepatosplenomegaly with decreased bowel sounds. EXTREMITIES: No cyanosis, clubbing or edema. NEUROLOGIC: Nonfocal. LABORATORY DATA: Pending at the time of this dictation. ASSESSMENT AND PLAN: 1. Hepatosplenomegaly secondary to hepatic steatosis. The patient with increased pain and some naus ea and vomiting yesterday and not ready for discharge to home. We will try to stabilize the patient today and anticipate discharge hopefully in the next day or 2. We will continue with pain control, p .r.n. antiemetics and monitor blood test. 2. Anemia, stable. No need for transfusion. We will await today's results, but no need for transfu saige at this time. 3. Pleural effusions, stable with some fluid at the bases but no need for thoracentesis. 4. Hypertension. The patient remains hypotensive off of medications. We will continue to monitor. 5. Hypomagnesemia, status post replacement. We will await results from today and replace as needed. 6. Discharge planning. The patient is stable for discharge today. We will continue to monitor and hopefully discharge in the next day or 2. Dictated By: JOS VANEGAS MD SR/NTS Conf#: [id number] DID#: [id number] CC: FABY FARFAN MD;*EndCC*
[2018-11-08] MEDS: BENZONATATE 100 MG CAP PO SCH ×3 (08:54→21:20)
[2018-11-08] MEDS: FAMOTIDINE 20 MG TAB PO SCH (08:54)
[2018-11-08] MEDS: SPIRONOLACTONE 50 MG TAB PO SCH (10:23)
[2018-11-08 14:49] VITALS: BP 100/58; PULSE 79; RESP 18
[2018-11-08] MEDS ORDERED: MAGNESIUM SULFATE 3 GM in DEXTROSE 5% 100 ML IVPB ONE (15:00)
[2018-11-08 19:30] VITALS: BP 97/62; PULSE 84; RESP 18
[2018-11-09] MEDS: morphine LIQ (10 MG/5 ML) CUP PO PRN ×8 (00:38→23:51)
[2018-11-09 01:53] VITALS: BP 125/67; PULSE 84; RESP 18
[2018-11-09 07:15] VITALS: BP 103/59; PULSE 87; RESP 16
--- NOTE | 2018-11-09 08:25 | PN ---
DATE: 11/09/2018 SUBJECTIVE: The patient has increased abdominal pain and feels weaker as compared to yesterday. OBJECTIVE: VITAL SIGNS: Temperature 98.0, pulse of 84, respirations 18, blood pressure 125/67, oxygen saturatio n 99% on room air. GENERAL: Well-developed, ill-appearing female in no acute distress, sitting up in bed. CHEST: Decreased breath sounds at bilateral bases with dullness at the bases. HEART: Regular rate and rhythm. ABDOMEN: Mild distention. There is moderate tenderness to palpation with hepatosplenomegaly. NEUROLOGIC: Nonfocal. LABORATORY DATA: Sodium 138, potassium 4.0, chloride 97, bicarbonate 30, BUN of 2, creatinine 0.48, glucose of 72. Magnesium 1.6, AST of 193, ALT of 29, alkaline phosphatase 231, lipase is 471. Hemog lobin 10.9, hematocrit 33.0, white blood cell count 9.1, platelets 158. ASSESSMENT AND PLAN: 1. Hepatosplenomegaly/hepatic steatosis. The patient's symptoms are worse with increase in lipase a nd liver function test. The patient is not ready for discharge to home. We need to get better pain control and monitor blood test better as the patient may be having an escalation in her inflammation. We will continue to monitor, but the patient is not ready for discharge to home. 2. Hypomagnesemia, minimally improved. We will give 3 grams of IV magnesium today and recheck magne sium levels tomorrow morning. 3. Hypertension, stable without medications. We will continue to monitor, but no need for medicatio ns. 4. Pleural effusions, stable. The patient has persistent intermittent cough. We will continue with Tessalon Perles and spironolactone to keep fluid down. Dictated By: JOS VANEGAS MD SR/NTS Conf#: [id number] DID#: [id number] CC: FABY FARFAN MD;*End*
[2018-11-09] MEDS: BENZONATATE 100 MG CAP PO SCH ×3 (08:38→20:50)
[2018-11-09] MEDS: SPIRONOLACTONE 50 MG TAB PO SCH (08:38)
[2018-11-09] MEDS: FAMOTIDINE 20 MG TAB PO SCH (08:39)
[2018-11-09] MEDS ORDERED: MAGNESIUM SULFATE 3 GM in DEXTROSE 5% 100 ML IVPB ONE (10:00)
[2018-11-09 14:08] VITALS: BP 107/64; PULSE 89; RESP 16
[2018-11-09 19:48] VITALS: BP 110/62; PULSE 85; RESP 17
[2018-11-10 02:04] VITALS: BP 99/60; PULSE 97; RESP 18
[2018-11-10] MEDS: morphine LIQ (10 MG/5 ML) CUP PO PRN ×7 (03:14→22:43)
[2018-11-10 07:15] VITALS: BP 86/58; PULSE 101; RESP 18
[2018-11-10] MEDS ORDERED: PHYTONADIONE 10 MG/ML INJ IM ONE (08:00)
--- NOTE | 2018-11-10 08:16 | PN ---
DATE: 11/10/2018 SUBJECTIVE: The patient is feeling worse with increased abdominal pain with intermittent cough. OBJECTIVE: VITAL SIGNS: Temperature 98.3, pulse 97, respirations 18, blood pressure 89/60, oxygen saturation 96 % on room air. GENERAL: Well-developed, ill appearing female in mild distress due to pain, lying in bed. CHEST: Decreased breath sounds at bilateral bases. HEART: Tachycardic, but regular. ABDOMEN: Moderate tenderness to palpation diffusely, especially in the right upper quadrant and left upper quadrant with hepatosplenomegaly. EXTREMITIES: No cyanosis, clubbing or edema. There are scattered bruises on the extremities. LABORATORY DATA: Sodium 137, potassium 3.9, chloride 103, bicarbonate 27, BUN less than 2, creatinin e 0.44, blood sugar 76. Magnesium is 1.4, AST of 173, ALT of 32, alkaline phosphatase 201. Albumin 2.6, lipase is 514. PT of 16.7, INR of 1.34, PTT of 40.4, hemoglobin of 9.9, hematocrit 29.1, platel ets 127. White blood cell count 6.0. ASSESSMENT AND PLAN: 1. Abdominal pain seems to be worse. The patient with increasing levels of lipase, suggestive of in flammation of the pancreas. The patient is not having increased pain after meals. We will continue to follow. The patient is not stable for discharge with increasing pain and worsening lipase, we douglas l continue inpatient treatment and control pain and monitor for worsening. 2. Hepatosplenomegaly/hepatic steatosis, numbers are starting to improve. The patient continues to have [id number] pain requiring morphine. We will continue with pain control, monitoring test . The patient still with elevated PT, PTT and will give some vitamin K today as well. 3. Hypertension. The patient has no hypertension. He has been hypotensive. We will continue to mo nitor, but no need for medications at this point. 4. Hypomagnesemia, worse. We will give 3 grams of IV magnesium today. Recheck in the morning. Dictated By: JOS VANEGAS MD SR/NTS Conf#: [id number] DID#: [id number] CC: FABY FARFAN MD;*EndCC*
[2018-11-10 08:22] VITALS: BP 135/96; PULSE 69
[2018-11-10] MEDS: BENZONATATE 100 MG CAP PO SCH ×3 (08:43→20:05)
[2018-11-10] MEDS: FAMOTIDINE 20 MG TAB PO SCH (08:43)
[2018-11-10] MEDS: SPIRONOLACTONE 50 MG TAB PO SCH (08:43)
[2018-11-10] MEDS ORDERED: MAGNESIUM SULFATE 3 GM in DEXTROSE 5% 100 ML IVPB ONE (10:00)
[2018-11-10 12:28] VITALS: BP 125/66; PULSE 84
[2018-11-10 14:01] VITALS: BP 120/67; PULSE 81; RESP 16
[2018-11-10 20:09] VITALS: BP 113/71; PULSE 80; RESP 18
[2018-11-11] MEDS: morphine LIQ (10 MG/5 ML) CUP PO PRN ×8 (01:45→23:09)
[2018-11-11 02:20] VITALS: BP 101/58; PULSE 83; RESP 20
[2018-11-11 07:43] VITALS: BP 111/59; PULSE 85; RESP 16
[2018-11-11 07:49] VITALS: BP 160/78; PULSE 89; RESP 18
[2018-11-11] MEDS: SPIRONOLACTONE 50 MG TAB PO SCH (08:39)
[2018-11-11] MEDS: FAMOTIDINE 20 MG TAB PO SCH (08:39)
[2018-11-11] MEDS: BENZONATATE 100 MG CAP PO SCH ×3 (08:39→20:09)
[2018-11-11 11:08] VITALS: BP 100/52; PULSE 82
[2018-11-11] MEDS ORDERED: MAGNESIUM SULFATE 3 GM in DEXTROSE 5% 100 ML IVPB ONE (11:30)
[2018-11-11 14:09] VITALS: BP 100/53; PULSE 83; RESP 16
[2018-11-11 20:40] VITALS: BP 97/55; PULSE 85; RESP 20
--- NOTE | 2018-11-12 00:34 | PN ---
DATE: 11/11/2018 SUBJECTIVE: The patient had two episodes of nausea and vomiting with meals today, but no increased p ain. The patient also with increased itching. The patient still complains of moderate to severe abd ominal pain. Cough is better. OBJECTIVE: VITAL SIGNS: Temperature 98.4 but T-max 99.1, pulse 85 and regular, respirations 20, blood pressure 97/55, oxygen saturation 99% on room air. GENERAL: Well-developed thin female, in no acute distress, lying in bed. CHEST: Clear to auscultation bilaterally but decreased breath sounds at bilateral bases. HEART: Regular rate and rhythm. ABDOMEN: Moderate tenderness diffusely with significant hepatosplenomegaly. Decreased bowel sounds. LABORATORY DATA: White blood cell count 6.5, hemoglobin 9.9, hematocrit 30.1, platelets 114. Sodium 138, potassium 4.1, chloride 102, bicarbonate 27, BUN of 2, creatinine 0.43, blood sugar of 67, magn esium 1.6, calcium 8.6. AST of 195, alkaline phosphatase 196, ALT of 35. Lipase 498. Amylase 76. ASSESSMENT AND PLAN: 1. Hepatosplenomegaly/hepatic steatosis. The patient with ongoing moderate to severe abdominal pain with increasing liver enzymes despite being off of any alcohol or liver toxins at this point. We wi ll continue to monitor. The patient is not ready for discharge to home at this point. Continue with p.r.n. morphine sulfate for pain control and monitor lab tests. The patient also had elevated PT an d PTT consistent with coagulopathy related to liver disease. We will continue to follow and give vit rodríguez K as needed. 2. Pleural effusion, stable. Mild fluid at the bases but no need for further thoracentesis. We douglas l continue with diuretics. 3. Anemia secondary to chronic liver disease, stable. Continue to monitor. No need for transfusion . 4. Hypomagnesemia, slightly improved but ongoing. The patient was given 3 grams of magnesium sulfat e this morning. We will continue to monitor. 5. Hypertension, stable with no medications. The patient had 1 elevated value this morning, but oth erwise has been consistently in the 90s. We will continue to monitor, but no need for medications at this point. Dictated By: JOS VANEGAS MD SR/NTS Conf#: [id number] [facility]#: [id number] CC: FABY FARFAN MD;*End*
[2018-11-12 02:00] VITALS: BP 98/50; PULSE 81; RESP 17
[2018-11-12] MEDS: morphine LIQ (10 MG/5 ML) CUP PO PRN ×8 (02:10→23:34)
[2018-11-12 08:04] VITALS: BP 110/68; PULSE 94; RESP 18
[2018-11-12] MEDS: BENZONATATE 100 MG CAP PO SCH ×3 (08:13→20:34)
[2018-11-12] MEDS: SPIRONOLACTONE 50 MG TAB PO SCH (08:14)
[2018-11-12] MEDS: FAMOTIDINE 20 MG TAB PO SCH (08:14)
[2018-11-12] MEDS ORDERED: MAGNESIUM SULFATE 3 GM in DEXTROSE 5% 100 ML IVPB ONE (09:30)
[2018-11-12] MEDS ORDERED: PHYTONADIONE 10 MG in DEXTROSE 5% 50 ML IVPB ONE (09:30)
[2018-11-12] MEDS ORDERED: IOHEXOL 14.3 MG(I)/ML (ADULT) BTL PO ONE (11:00)
[2018-11-12] MEDS ORDERED: SOD CHLORIDE 0.9% 100 ML ONE (13:15)
[2018-11-12] MEDS ORDERED: IOHEXOL 300MG/ML 150 ML BTL ONE (13:15)
[2018-11-12 16:05] VITALS: Ht 152.4 cm; Wt 48.0 kg
[2018-11-12] MEDS: hydrOXYzine HCL 10 MG TAB PO PRN (17:18)
[2018-11-12 20:00] VITALS: BP 93/55; PULSE 85; RESP 19
--- NOTE | 2018-11-13 01:21 | PN ---
DATE: 11/12/2018 SUBJECTIVE: The patient complains of some abdominal pain, some nausea and vomiting about 15 minutes after eating. The patient complains of right greater than the left upper quadrant pain and abdominal pain and itching is about the same. OBJECTIVE: VITAL SIGNS: Temperature 98.8, pulse of 85, respirations 19, blood pressure is 93/55, oxygen saturat ion 95% on room air. GENERAL: Well-developed female in no acute distress, sitting up in bed. CHEST: Decreased breath sounds bilateral bases, otherwise, clear. HEART: Regular rate and rhythm. ABDOMEN: Moderate hepatosplenomegaly with moderate tenderness to minimal palpation in the right and left upper quadrant and lower abdomen. Positive bowel sounds but decreased. EXTREMITIES: No cyanosis, clubbing, or edema. Right forearm with inflamed veins and ecchymoses with tenderness to palpation and mild edema. NEUROLOGIC: Nonfocal. LABORATORY DATA: White blood cell count 6.1, hematocrit 30.0, hemoglobin 10.1, and platelets 133. S odium 138, potassium 4.4, chloride 100, bicarbonate 29, BUN of less than 2, creatinine 0.49, glucose of 80, magnesium 1.4, AST of 190, ALT of 33, alkaline phosphatase 201, albumin 2.8, lipase is 599. P T of 16.3, INR of 1.3, PTT of 38.9. Abdominal pelvic CT scan shows hepatomegaly and decreased hepati c attenuation consistent with hepatic steatosis, unchanged. Pancreas is unremarkable in appearance. No acute pancreatic abnormality. Gallbladder is distended and contains a layer of sludge and calcif ied gallstones with a mildly thickened gallbladder wall, but no biliary dilatation and no change from previous CT scan done 2 weeks ago. ASSESSMENT AND PLAN 1. Hepatosplenomegaly/hepatic steatosis. The patient's abdominal pain persists and continue with p. r.n. analgesics. The patient with rising pancreatic enzymes, but according to CT scan, no elevation, no inflammation within the pancreas. The patient, however, does have some gallstones, gallbladder s ludge but no common bile duct or biliary dilatation or evidence of any obstruction. We will have GI see the patient again tomorrow to assist with evaluation and treatment. Unclear if gallbladder is cu rrently an issue and needs further evaluation and treatment. We will continue with p.r.n. analgesics for now and current diet. 2. Anemia, stable. Continue to monitor but no need for transfusion. 3. Hypomagnesemia persists, patient with poor p.o. intake. We will continue with IV supplementation and recheck. 4. Coagulopathy secondary to liver disease, improved. We will continue with monitoring and give p.r .n. vitamin K. 5. Hypertension, stable without need for medications. We will continue to monitor, but no need for blood pressure medications. DISCHARGE PLAN: We will hold discharge tomorrow as patient continues to have moderate to severe pain and worsening tests. At this point, we will continue to monitor and continue with inpatient evaluat ion and treatment. Dictated By: JOS VANEGAS MD SR/NTS Conf#: [id number] DID#: [id number] CC: FABY FARFAN MD;*End*
[2018-11-13 02:00] VITALS: BP 91/48; PULSE 80; RESP 18
[2018-11-13] MEDS: morphine LIQ (10 MG/5 ML) CUP PO PRN ×6 (02:39→21:39)
[2018-11-13 07:28] VITALS: BP 119/62; PULSE 91; RESP 18
[2018-11-13] MEDS ORDERED: PHYTONADIONE 1 MG/0.5 ML SYG SC ONE (08:00)
--- NOTE | 2018-11-13 08:21 | PN ---
DATE: 11/13/2018 SUBJECTIVE: The patient is feeling about the same with moderate abdominal pain still with some nause a. OBJECTIVE: VITAL SIGNS: Temperature 98.6, pulse 91, respirations 18, blood pressure 119/62, oxygen saturation 9 7% on room air. GENERAL: Well-developed female in no acute distress, lying in bed. CHEST: Decreased breath sounds at bilateral bases, otherwise clear. HEART: Regular rate and rhythm. ABDOMEN: Moderate hepatosplenomegaly with moderate tenderness to palpation. No rebound. Positive b owel sounds. LABORATORY DATA: Sodium 137, potassium 4.2, chloride 98, bicarbonate 29, BUN of less than 2, creatin ine 0.41, glucose 81. Magnesium 1.5, AST of 169, ALT of 36, alkaline phosphatase 196, amylase 72, li pase of 535. PTT of 40.0, INR 1.38, PT of 17.1, white blood cell count 6.1, hematocrit 29.2, hemoglo bin 10.0, platelets 126. ASSESSMENT AND PLAN: 1. Hepatosplenomegaly/hepatic steatosis. The patient with slightly improved liver test, but still w ith moderate pain. This is likely related to the hepatosplenomegaly, but underlying gallbladder prob lems need to be ruled out. 2. Elevated lipase, unclear if patient is having a pancreatic problem although CT scan done yesterda y shows no inflammation or whether this is related to the hepatic steatosis or the sludge and gallsto joy in the gallbladder. We will have Dr. Pierce reevaluate the patient and make recommendations. 3. Anemia, stable. Continue to monitor, but no need for transfusions. 4. Hypomagnesemia persists, will continue with replacement and give 3 grams IV magnesium today. 5. Coagulopathy. We will give vitamin K 10 mg IV push. 6. Hypertension, stable without medications. We will continue to monitor, but no need for medicatio ns at this time. Dictated By: JOS VANEGAS MD SR/NTS Conf#: [id number] DID#: [id number] CC: FABY FARFAN MD;*EndCC*
[2018-11-13] MEDS ORDERED: MAGNESIUM SULFATE 3 GM in DEXTROSE 5% 100 ML IVPB ONE (08:30)
[2018-11-13] MEDS ORDERED: PHYTONADIONE 10 MG in DEXTROSE 5% 50 ML IVPB ONE (08:30)
[2018-11-13] MEDS: SPIRONOLACTONE 50 MG TAB PO SCH (08:31)
[2018-11-13] MEDS: FAMOTIDINE 20 MG TAB PO SCH (08:31)
[2018-11-13] MEDS: BENZONATATE 100 MG CAP PO SCH ×3 (08:31→21:12)
[2018-11-13] MEDS: METOCLOPRAMIDE 10 MG INJ IV SCH ×3 (08:31→17:29)
--- NOTE | 2018-11-13 12:14 | CONS ---
Consult Date/Type/Reason Admit Date/Time Oct 27, 2018 at 15:43 Initial Consult Date Type of Consultation: GI Date/Time of Note DATE: 11/13/18 TIME: 11:56 Subjective I was asked by Dr. Flynn to see this patient again because her lipase is rising. She states she has had continual abdominal pain since before admission to the current point. It is described as diffuse sharp stabbing pain throughout her belly that is present 24 hours a day 7 days a week. She states that putting ice on her belly makes her symptoms better but eating makes her symptoms worse. No radiation of the pain. Of note on questioning the patient regarding what her understanding of the liver biopsy was, she states she has fatty liver disease. She denies that she was told of alcoholic liver disease. On questioning her about her alcohol intake she states she can have up to 3 glasses of wine on occ asion. Of note the patient has routinely been taking morphine for pain complaints. Although she has been found to have sludge in her gallbladder, a HIDA scan was negative. Objective Vitals Vital Signs Date Temp Pulse Resp B/P (MAP) Pulse Ox O2 O2 Flow FiO2 Time Delivery Rate 11/13/18 98.6 91 18 119/62 97 07:28 (81) 11/11/18 Room Air 14:09 Chest: clear to P and A Cardiac: no m, r, g Abdomen: soft, mild gaseous distention, liver edge tender, + bs Intake and Output 11/12/18 11/12/18 11/13/18 1515:00 23:00 07:00 IntakeIntake Total 685.333 ml 1251 ml 1660 ml BalanceBalance 685.333 ml 1251 ml 1660 ml Results/Medications Result Diagram: 11/13/18 0545 11/13/18 0545 Results 24 hrs Laboratory Tests Test 11/13/18 05:45 White Blood Count 6.1 Red Blood Count 2.85 L Hemoglobin 10.0 L Hematocrit 29.2 L Mean Corpuscular Volume 102.5 H Mean Corpuscular Hemoglobin 35.1 H Mean Corpuscular Hemoglobin Concent 34.2 Red Cell Distribution Width 12.0 Platelet Count 126 L Mean Platelet Volume 11.7 H Immature Granulocytes % 0.300 Neutrophils % 68.9 Lymphocytes % 16.8 Monocytes % 11.0 Eosinophils % 1.8 Basophils % 1.2 Nucleated Red Blood Cells % 0.0 Immature Granulocytes # 0.020 Neutrophils # 4.2 Lymphocytes # 1.0 Monocytes # 0.7 Eosinophils # 0.1 Basophils # 0.1 Nucleated Red Blood Cells # 0.0 Prothrombin Time 17.1 H Prothrombin Time Ratio 1.3 INR International Normalized Ratio 1.38 Activated Partial Thromboplast Time 40.0 H Sodium Level 137 Potassium Level 4.2 Chloride Level 98 Carbon Dioxide Level 29 Anion Gap 10 Blood Urea Nitrogen < 2 L Creatinine 0.41 L Est Glomerular Filtrat Rate mL/min > 60 Glucose Level 81 Calcium Level 8.7 Magnesium Level 1.5 L Total Bilirubin 0.8 Direct Bilirubin 0.00 Indirect Bilirubin 0.8 Aspartate Amino Transf (AST/SGOT) 169 H Alanine Aminotransferase (ALT/SGPT) 36 Alkaline Phosphatase 196 H Total Protein 6.3 Albumin 2.8 L Globulin 3.50 H Albumin/Globulin Ratio 0.80 Amylase Level 72 Lipase 535 H Home Meds Reported Medications Ondansetron Hcl* (Zofran*) 4 Mg Tab, 4 MG PO NEEDED PRN for NAUSEA AND OR VOMITING, TAB 10/27/18 Metoprolol Succinate* (Toprol XL*) 50 Mg Tab.er.24h, 50 MG PO BID, #30 TAB 10/27/18 Pantoprazole* (Pantoprazole*) 40 Mg Tablet.dr, 40 MG PO AC BREAKFAST DINNER, TAB 10/27/18 Lisinopril* (Lisinopril*) 20 Mg Tablet, 20 MG PO DAILY, #30 TAB 10/27/18 Sucralfate* (Carafate*) 1 Gm Tab, 1 GM PO AC MEALS AND BEDTIME, TAB 10/27/18 Medications Current Medications IV Flush (NS 3 ml) 3 ml PER PROTOCOL IV ; Start 10/27/18 at 16:30 Ondansetron HCl (Zofran Inj) 4 mg Q6H PRN IV NAUSEA/VOMITING; Start 10/27/18 at 16:30 Alprazolam (Xanax) 0.25 mg HS PRN PO anxiety/insomnia; Start 10/30/18 at 09:00 Hydroxyzine HCl (Atarax) 10 mg Q6H PRN PO ITCHING Last administered on 11/12/18at 17:18; Admin Dose 10 MG; Start 10/31/18 at 13:00 Benzonatate (Tessalon) 100 mg TID PO Last administered on 11/13/18 08:31; Admin Dose 100 MG; Start 10/31/18 at 21:00 Spironolactone (Aldactone) 50 mg DAILY PO Last administered on 11/13/18 08:31; Admin Dose 50 MG; Start 11/03/18 at 09:00 Morphine Sulfate (morphine) 3 mg Q4H PRN IV .SEVERE PAIN 7-10 Last administered on 11/06/18 11:15; Admin Dose 3 MG; Start 11/05/18 at 18:50 Morphine Sulfate (morphine) 5 mg Q3H PRN PO SEVERE PAIN LEVEL 7-10 Last administered on 11/13/18 09:08; Admin Dose 5 MG; Start 11/06/18 at 07:30 Famotidine (Pepcid) 20 mg DAILY PO Last administered on 11/13/18 08:31; Admin Dose 20 MG; Start 11/07/18 at 09:00 Metoclopramide HCl (Reglan) 10 mg Q6 IV Last administered on 11/13/18 08:31; Admin Dose 10 MG; Start 11/13/18 at 08:00 Assessment/Plan Hospital Course (Demo Recall) Impression: 1. Abdominal discomfort - possibly related to alcoholic hepatitis and pancreatitis, although patient denies alcohol issues on discussion with Dr Silvestre numerous Mita bodies more likely represents alcoholic hepatitis than LEDESMA(also note improvement in hospital) 2. Improving liver tests - likely represents alcoholic liver disease per biopsy - see above 3. Elevated lipase - although initial elevation likely related to alcohol, suspect current elevation is from morphine usage Plan: Will discuss with Dr Flynn Would favor discontinuing morphine and all narcotics and then observing labs(consider trial of ) ASHANTI WARREN MD Nov 13, 2018 12:06
[2018-11-13 13:55] VITALS: BP 111/60; PULSE 96; RESP 18
[2018-11-13 19:33] VITALS: BP 85/49; PULSE 83; RESP 18
[2018-11-13 21:18] VITALS: BP 107/56; RESP 18
[2018-11-14 01:58] VITALS: BP 95/53; PULSE 84; RESP 18
[2018-11-14] MEDS: METOCLOPRAMIDE 10 MG INJ IV SCH ×5 (05:46→23:30)
[2018-11-14 07:55] VITALS: BP 93/48; PULSE 80; RESP 16
[2018-11-14] MEDS: FAMOTIDINE 20 MG TAB PO SCH (08:28)
[2018-11-14] MEDS: BENZONATATE 100 MG CAP PO SCH ×3 (08:28→20:11)
[2018-11-14] MEDS: SPIRONOLACTONE 50 MG TAB PO SCH (08:28)
[2018-11-14] MEDS: morphine LIQ (10 MG/5 ML) CUP PO PRN ×3 (08:32→11:54)
--- NOTE | 2018-11-14 08:37 | PN ---
DATE: 11/14/2018 SUBJECTIVE: The patient is feeling a little bit better but still has moderate to severe abdominal pa in, but did not vomit yesterday. OBJECTIVE: VITAL SIGNS: Temperature 98.9, pulse of 84, respirations 18, blood pressure 95/53 but was as low as 85/49 earlier yesterday, oxygen saturation 96% on room air. GENERAL: Well-developed female in no acute distress, sitting up in bed. CHEST: Decreased breath sounds at bilateral bases, otherwise clear. HEART: Regular rate and rhythm. ABDOMEN: Moderate tenderness with hepatosplenomegaly. Decreased bowel sounds, nondistended. LABORATORY DATA: Lipase is 714, magnesium is 1.4, PT of 17.2, INR of 1.39, PTT 39.7, hemoglobin of 9 .9, hematocrit 29.4, platelets of 123 and white blood cell count 5.3. ASSESSMENT AND PLAN: 1. Hepatosplenomegaly with hepatic steatosis, improved. The patient continues to have moderate to s evere abdominal pain requiring morphine. We will continue with morphine and recheck liver tests in t he morning. 2. Elevated lipase. Appreciate Dr. Pierce's input into this case. The patient with no pancreatitis b y CT scan and possibly morphine causing rise in lipase at this time. We will continue to monitor as lipase did go up into the 700 range today. The patient remains stable. The patient may be discharge d to home tomorrow. 3. Cough/pleural effusion, improved. We will continue with benzonatate but no need for antibiotics. 4. Hypotension. Continue to push fluids, but no need for medications or IV fluids at this time. 5. Hypomagnesemia persists due to decreased dietary intake. We will give 4 grams of IV magnesium to day. 6. Coagulopathy, improved. We will give 10 mg of vitamin K today. 7. Discharge planning. If patient remains stable, possible discharge to home tomorrow. Dictated By: JOS VANEGAS MD SR/NTS Conf#: [id number] DID#: [id number] CC: FABY FARFAN MD;*EndCC*
[2018-11-14] MEDS ORDERED: MAGNESIUM SULFATE 4 GM/100 ML 100 ML IVPB ONE (09:00)
[2018-11-14] MEDS ORDERED: PHYTONADIONE 10 MG in DEXTROSE 5% 50 ML IVPB ONE (09:00)
[2018-11-14 14:28] VITALS: BP 125/73; PULSE 91; RESP 16
[2018-11-14] MEDS: morphine 4 MG/ML VIAL IV PRN (18:47)
[2018-11-14 19:35] VITALS: BP 116/59; PULSE 86; RESP 17
[2018-11-15 01:57] VITALS: BP 93/54; PULSE 82; RESP 18
[2018-11-15] MEDS: METOCLOPRAMIDE 10 MG INJ IV SCH ×3 (05:34→17:37)
[2018-11-15] MEDS ORDERED: MAGNESIUM SULFATE 3 GM in DEXTROSE 5% 100 ML IVPB ONE (07:00)
[2018-11-15 08:16] VITALS: BP 98/57; PULSE 80; RESP 16
[2018-11-15] MEDS ORDERED: BENZONATATE 100 MG CAP PO PRN (08:30)
--- NOTE | 2018-11-15 08:30 | PN ---
DATE: 11/15/2018 SUBJECTIVE: The patient is feeling a little better but still with moderate abdominal pain. No nause a and vomiting. OBJECTIVE: VITAL SIGNS: Temperature 98.2, pulse of 82, respirations 18, blood pressure 93/54, oxygen saturation 96% on room air. GENERAL: Well-developed female in no acute distress, sitting up in bed. CHEST: Clear to auscultation bilaterally except for decreased breath sounds bilateral bases. ABDOMEN: Soft. There is moderate hepatosplenomegaly with moderate tenderness in the right upper veie drant greater than left upper quadrant. Positive bowel sounds. No rebound. LABORATORY DATA: Sodium 140, potassium 4.3, chloride 102, bicarbonate 28, BUN of 3, creatinine 0.5, sugar of 78. Magnesium 1.6, calcium 8.7, AST of 145, ALT of 24, alkaline phosphatase 187, albumin 2. 7, lipase is 1016, PTT of 39.9, INR 1.35. PT of 16.8, hemoglobin of 9.6, hematocrit 29.2, platelets 144. White blood cell count 5.7. ASSESSMENT AND PLAN: 1. Elevated lipase. Continues to increase with the patient having abdominal pain. We will continue to observe. The patient needs to continue to be observed inpatient to see if the lipase goes down. Doubt pancreatitis, but nonetheless, the continued rising of lipase despite decreased use of morphin e is disconcerting. 2. Hepatosplenomegaly/hepatic steatosis, liver tests continue to improve. The patient continues to have moderate pain requiring morphine, but less so. The patient's liver enzymes continue to improve and will continue to monitor. 3. Hypomagnesemia, improved but persists. Will give 3 grams of IV magnesium sulfate and recheck in the morning and also give oral magnesium oxide. Dictated By: JOS VANEAGS MD SR/NTS Conf#: [id number] DID#: [id number] CC: FABY FARFAN MD;*EndCC*
[2018-11-15] MEDS: FAMOTIDINE 20 MG TAB PO SCH (09:14)
[2018-11-15] MEDS: MAGNESIUM OXIDE 400 MG TAB PO SCH ×2 (09:14→20:11)
[2018-11-15] MEDS: morphine LIQ (10 MG/5 ML) CUP PO PRN ×5 (09:14→22:30)
[2018-11-15] MEDS: SPIRONOLACTONE 50 MG TAB PO SCH (09:14)
[2018-11-15 14:44] VITALS: BP 95/53; PULSE 89; RESP 18
[2018-11-15 20:07] VITALS: BP_SYST 101; BP_DIAS 49; BP_DIAS 56; PULSE 79; RESP 20
[2018-11-16] MEDS: METOCLOPRAMIDE 10 MG INJ IV SCH ×5 (01:12→23:37)
[2018-11-16] MEDS: morphine LIQ (10 MG/5 ML) CUP PO PRN ×7 (01:22→21:03)
[2018-11-16 02:15] VITALS: BP 93/54; PULSE 85; RESP 18
--- NOTE | 2018-11-16 08:13 | PN ---
DATE: 11/16/2018 SUBJECTIVE: The patient still with moderate abdominal pain, but no nausea or vomiting and minimal co ugh. OBJECTIVE: VITAL SIGNS: Temperature 98.2, pulse of 85, respirations 18, blood pressure 93/54, oxygen saturation 99% on room air. GENERAL: Well-developed, thin female in no acute distress, sitting up in bed. LUNGS: Slight decreased breath sounds bilateral bases, otherwise clear. HEART: Regular rate and rhythm. ABDOMEN: Moderate hepatosplenomegaly with moderate tenderness to minimal palpation of the right uppe r quadrant and left upper quadrant. No rebound. Positive bowel sounds. EXTREMITIES: No cyanosis, clubbing or edema. LABORATORY DATA: Sodium 139, potassium 4.5, chloride 102, bicarbonate 29, BUN 3, creatinine 0.51, bl ood sugar of 71, calcium 8.6, magnesium is 1.4, AST of 137, ALT of 28, alkaline phosphatase 182, lipa se is 1134. ASSESSMENT AND PLAN: 1. Elevated lipase, unclear etiology and it continues to rise despite decreased use of the morphine. I am a little concerned that the patient's lipase continues to return despite the fact that she has been reducing her morphine intake. We will continue to monitor, but hold discharge at this point an d see if the lipase levels plateau or decrease with continued reduced use of the morphine. 2. Hepatic steatosis/hepatosplenomegaly. Liver function tests continue to improve slightly, but heather gallardo still has moderate pain requiring some analgesics. We will continue with pain control and monit or labs. 3. Hypomagnesemia, worse. This is likely a combination of diet reduced absorption with medications as well as diuretics. We will continue to monitor and we will continue oral magnesium as well as giv ing 3 grams of magnesium sulfate IV today. 4. Hypertension, stable with no medications. Continue to monitor, but no need for medications at th is time. 5. Discharge planning. Patient not ready for discharge with elevated lipase and will continue to ne ed monitoring. Hopefully, patient can be discharged tomorrow without a problem. Dictated By: JOS VANEGAS MD SR/NTS Conf#: [id number] DID#: [id number] CC: FABY FARFAN MD;*EndCC*
[2018-11-16 08:24] VITALS: BP 112/56; PULSE 83; RESP 18
[2018-11-16] MEDS: FAMOTIDINE 20 MG TAB PO SCH (08:29)
[2018-11-16] MEDS: MAGNESIUM OXIDE 400 MG TAB PO SCH ×2 (08:29→20:36)
[2018-11-16] MEDS: SPIRONOLACTONE 50 MG TAB PO SCH (08:29)
[2018-11-16] MEDS ORDERED: MAGNESIUM SULFATE 3 GM in DEXTROSE 5% 100 ML IVPB SCH (10:00)
[2018-11-16 14:10] VITALS: BP 114/61; PULSE 90; RESP 18
[2018-11-16 20:00] VITALS: BP 95/56; PULSE 85; RESP 18
[2018-11-17] MEDS: morphine LIQ (10 MG/5 ML) CUP PO PRN ×3 (00:37→08:16)
[2018-11-17 02:24] VITALS: BP 96/58; PULSE 86; RESP 18
[2018-11-17] MEDS: METOCLOPRAMIDE 10 MG INJ IV SCH (05:14)
[2018-11-17 08:00] VITALS: BP 96/56; PULSE 64; RESP 20
--- NOTE | 2018-11-17 08:03 | PDOCDIS ---
Discharge Instructions DIAGNOSIS Discharge Diagnosis 1.hepatic steatosis 2.hyperlipasemia 3.hypomagnesemia 4.anemia secondary to #1 CONDITION [id number] Patient Condition: [id number] Good HOME CARE INSTRUCTIONS: [id number] Diet Instructions: [id number] Regular ACTIVITY: [id number] Activity Restrictions: [id number] No Restrictions FOLLOW UP/APPOINTMENTS Follow-up Plan follow up with labs next week and f/o appt with Dr. Flynn in 2wks(call for appt) SCHOOL/WORK RELEASE May return to School/Work on: December 25, 2018 JOS FLYNN MD- Nov 17, 2018 08:03
[2018-11-17] MEDS ORDERED: SPIR50TA PO (08:07)
[2018-11-17] MEDS ORDERED: MORP10SO PO (08:07)
[2018-11-17] MEDS ORDERED: BENZ-5 PO (08:07)
[2018-11-17] MEDS ORDERED: FAMO20TA18 PO (08:07)
[2018-11-17] MEDS ORDERED: METO5TAB58 PO (08:07)
[2018-11-17] MEDS ORDERED: MAGN400T28 PO (08:07)
[2018-11-17] MEDS: FAMOTIDINE 20 MG TAB PO SCH (08:16)
[2018-11-17] MEDS: SPIRONOLACTONE 50 MG TAB PO SCH (08:16)
[2018-11-17] MEDS: MAGNESIUM OXIDE 400 MG TAB PO SCH (08:16)
--- NOTE | 2018-11-17 09:09 | PN ---
DATE: 11/17/2018 SUBJECTIVE: The patient is feeling a little better but had increased pain and some nausea yesterday. No cough, no shortness of breath. OBJECTIVE: VITAL SIGNS: Temperature 98.5, pulse 86, respirations 18, blood pressure 96/58, oxygen saturation 98 % on room air. GENERAL: Well-developed, thin female in no acute distress, lying in bed. LUNGS: Clear to auscultation bilaterally. HEART: Regular rate and rhythm. ABDOMEN: Mild to moderate right upper quadrant tenderness with hepatosplenomegaly. Normoactive clarita l sounds. EXTREMITIES: No cyanosis, clubbing or edema. LABORATORY DATA: Sodium 138, potassium 4.5, chloride 100, bicarbonate 28, BUN of 3, creatinine 0.52, blood sugar 80. Magnesium 1.5. AST 148, ALT of 28, alkaline phosphatase 169, lipase is 1282. INR is 1.28. PTT of 38.6. PT of 16.1, hemoglobin of 9.7, hematocrit 29.3, platelets 137 and white blood cell count 5.7. ASSESSMENT AND PLAN: 1. Hepatic steatosis with hepatosplenomegaly. The patient is having improving numbers and improved pain. We will continue with p.r.n. morphine and follow liver function tests as an outpatient. 2. Hyperlipasemia continues to increase, but not concerned with pancreatitis as symptoms do not conf orm with this. I will follow up on lipase and other tests as an outpatient. The patient is stable f or discharge to home today. 3. Anemia secondary to #1. Continue to follow, but no need for transfusion. 4. If hypomagnesemia persists, will continue with oral magnesium supplementation and diet. DISCHARGE PLAN: The patient is stable for discharge home with followup with me within 2 weeks and wi ll have followup labs next week to reassess her lipase and liver function tests. Dictated By: JOS VANEGAS MD SR/NTS Conf#: [id number] DID#: [id number] CC: FABY FARFAN MD;*EndCC*
== END 2018-11-17 10:38 | disposition home or self-care (01) | DRG 442 ==
LOC: E/R 11:02 → PP2 15:43
PROVIDERS: ADMIT Internal Medicine; ATTEND Internal Medicine
PROC: 0FB13ZX Excision of Right Lobe Liver, Percutaneous Approach, Diagnostic (ICD-10-PCS; principal; 2018-10-30)
PROC: 0W9B3ZZ Drainage of Left Pleural Cavity, Percutaneous Approach (ICD-10-PCS; 2018-11-01)
PROC: 0W993ZZ Drainage of Right Pleural Cavity, Percutaneous Approach (ICD-10-PCS; 2018-11-02)
DX: K75.81 Nonalcoholic steatohepatitis (NASH) (principal); J90 Pleural effusion, not elsewhere classified; R18.8 Other ascites; D68.4 Acquired coagulation factor deficiency; D69.6 Thrombocytopenia, unspecified; D63.8 Anemia in other chronic diseases classified elsewhere; E83.42 Hypomagnesemia; E87.6 Hypokalemia; I10 Essential (primary) hypertension; I95.9 Hypotension, unspecified; R06.02 Shortness of breath; R21 Rash and other nonspecific skin eruption; R16.2 Hepatomegaly with splenomegaly, not elsewhere classified; R74.8 Abnormal levels of other serum enzymes; R94.5 Abnormal results of liver function studies; R11.0 Nausea; R14.0 Abdominal distension (gaseous)
CPT/HCPCS: 32555; 36415; 36600; 71045; 71260; 74177; 74181; 76705; 76942; 78226; 80048; 80053; 80076; 81001; 81025; 82042; 82103; 82150; 82390; 82465; 82607; 82746; 82784; 82803; 82945; 82962; 82977; 83010; 83036; 83540; 83615; 83690; 83735; 83921; 84157; 85025; 85610; 85730; 86038; 86255; 86704; 86709; 86803; 87070; 87102; 87116; 87340; 88307; 88313; 89051; 94640; 96361; 96374; 96375; J3430; A9537; C9113; J0456; J0885; J1940; J2270; J2405; J2765; J3475; J3480; J7030; J7042; Q9967

== ENCOUNTER 2018-12-10 20:35 | Inpatient (IN) | payer BC ==
[~2018-12-10] VITALS: Ht 165.1 cm; Wt 45.0 kg
[~2018-12-10 20:35] MED LIST changes: -ACET-2158 PO; +BENZ-5 PO; +FAMO20TA18 PO; -Lanolin TOP; +MAGN400T28 PO; +METO5TAB58 PO; +MORP10SO PO; +ONDA4TAB13 PO; +PANT40TA4 PO; -PREN1TAB49 PO; +SPIR50TA PO; +SUCR1TAB56 PO
[2018-12-10] MEDS ORDERED: morphine 4 MG/ML VIAL IV STA (21:01)
[2018-12-10] MEDS ORDERED: ONDANSETRON 4 MG INJ IV STA ×2 (21:01→23:43)
--- NOTE | 2018-12-10 21:02 | ERD ---
ER Documentation Chief Complaint Chief Complaint abdominal pain x 3weeks, worse today HPI 37-year-old woman with a history of chronic alcoholism, liver failure, steatohepatitis with fibrosis presents with continued generalized abdominal pain and vomiting times 3 days. She was recently worked up for similar symptoms and had multiple abdominal imaging studies revealing liver fibrosis and biliary sludge but no obstructive hepatobiliary stone was identified. She was discharged with instructions but parents were at the bedside state over the last 3 days her vomiting and pain has been increasing despite medications at home. She has not been able to keep anything down. She has had no fevers or chills, no chest pain, no blood per rectum or melena. ROS All systems reviewed and are negative except as per history of present illness. Medications Home Meds Active Scripts Metoclopramide* (Reglan*) 5 Mg Tablet, 5 MG PO Q6H PRN for NAUSEA AND OR VOMITING, #120 TAB Prov:JOS FLYNN 11/17/18 Magnesium Oxide* (Magnesium Oxide*) 400 Mg Tablet, 400 MG PO BID for 30 Days, #60 TAB Prov:JOS FLYNN 11/17/18 Famotidine* (Famotidine*) 20 Mg Tablet, 20 MG PO DAILY for 30 Days, #60 TAB Prov:JOS FLYNN 11/17/18 Benzonatate* (Benzonatate*) 100 Mg Capsule, 100 MG PO TID PRN for cough for 14 Days, #60 CAP Prov:JOS FLYNN 11/17/18 Morphine Sulfate* (Morphine* Liq) 10 Mg/5 Ml Solution, 5 MG PO Q3H PRN for SEVERE PAIN LEVEL 7-10 for 30 Days, #120 ML Prov:JOS FLYNN 11/17/18 Spironolactone* (Aldactone*) 50 Mg Tablet, 50 MG PO DAILY for 30 Days, #30 TAB Prov:JOS FLYNN 11/17/18 Reported Medications Ondansetron Hcl* (Zofran*) 4 Mg Tab, 4 MG PO NEEDED PRN for NAUSEA AND OR VOMITING, TAB 10/27/18 Pantoprazole* (Pantoprazole*) 40 Mg Tablet.dr, 40 MG PO AC BREAKFAST DINNER, TAB 10/27/18 Sucralfate* (Carafate*) 1 Gm Tab, 1 GM PO AC MEALS AND BEDTIME, TAB 10/27/18 Allergies Allergies: Coded Allergies: Penicillins (Verified Allergy, Intermediate, rash, 10/27/18) amoxicillin (Verified Allergy, Intermediate, rash, 10/27/18) PMhx/Soc Acute liver failure and recent diagnosis of steatohepatitis with stage III fibrosis due to chronic alcoholism and fatty liver, gastric ulcers, pleural effusions, anemia, hyperlipidemia, ascites History of Surgery: Yes (back surgery, cyst and fibroid, stomach surgery (polyps removal)) Anesthesia Reaction: No Hx Neurological Disorder: No Hx Respiratory Disorders: No Hx Cardiac Disorders: Yes (hypertension) Hx Psychiatric Problems: No Hx Miscellaneous Medical Probl: No Hx Alcohol Use: No (occasional drinker (date and dose unknown)) Hx Substance Use: No Hx Tobacco Use: No FmHx Family History: No diabetes Physical Exam Vitals Vital Signs Date Temp Pulse Resp B/P (MAP) Pulse Ox O2 O2 Flow FiO2 Time Delivery Rate 12/10/18 97.5 143 26 147/88 98 20:43 (107) Physical Exam GENERAL: Well-developed, appears dehydrated, intoxicated, afebrile, nauseous HEENT: Dry mucous membranes, pink conjunctiva, no cervical spine tenderness or step-off deformities, no goiter, no jaundice or icterus NEURO: Alert and oriented 2, cranial nerves II through XII intact bilaterally, pupils equal round reactive to light, slurred speech CARDIAC: Tachycardic and regular, no murmurs rubs or gallops LUNGS: Clear bilaterally no wheezing crackles or stridor ABDOMEN: Diffusely tender to touch with voluntary guarding, no rigidity or rebound SKIN: Warm and dry to touch, no abrasions, contusions, or hematomas, no lacerations, no ecchymosis, no target lesions, and without ulcers EXTREMITIES: No clubbing cyanosis or edema, calves are bilaterally symmetrical, no Homans sign, no popliteal cord sign. Distal pulses equal and bilateral PSYCH: Appears intoxicated agitated Result Diagram: 12/10/18212512/10/182125 Results 24 hrs Laboratory Tests Test 12/10/18 21:21 12/10/18 21:26 Bedside Glucose 90 mg/dL White Blood Count 7.3 10^3/ul Red Blood Count 3.91 10^6/ul Hemoglobin 12.7 g/dl Hematocrit 36.3 % Mean Corpuscular Volume 92.8 fl Mean Corpuscular Hemoglobin 32.5 pg Mean Corpuscular Hemoglobin Concent 35.0 g/dl Red Cell Distribution Width 13.9 % Platelet Count 75 10^3/UL Mean Platelet Volume 11.2 fl Immature Granulocytes % 0.400 % Neutrophils % % Segmented Neutrophils % (Manual) 41 % Band Neutrophils % (Manual) 2 % Lymphocytes % % Lymphocytes % (Manual) 51 % Monocytes % % Monocytes % (Manual) 2 % Eosinophils % % Eosinophils % (Manual) 3 % Basophils % % Basophils % (Manual) 1 % Nucleated Red Blood Cells % 0.0 /100WBC Immature Granulocytes # 0.030 10^3/ul Neutrophils # 10^3/ul Neutrophils # (Manual) 3.0 10^3/ul Band Neutrophils # 0.1 10^3/ul Lymphocytes (Manual) 3.7 10^3/ul Lymphocytes # 10^3/ul Monocytes # 10^3/ul Monocytes # (Manual) 0.1 10^3/ul Eosinophils # 10^3/ul Basophils # 10^3/ul Basophils # (Manual) 0.0 10^3/ul Nucleated Red Blood Cells # 10^3/ul Platelet Estimate DECREASED Polychromasia 1+ Prothrombin Time 14.1 Sec Prothrombin Time Ratio 1.1 INR International Normalized Ratio 1.08 Activated Partial Thromboplast Time 35.1 Sec Sodium Level 149 mmol/L Potassium Level 3.3 mmol/L Chloride Level 108 mmol/L Carbon Dioxide Level 24 mmol/L Anion Gap 17 Blood Urea Nitrogen 4 mg/dl Creatinine 0.43 mg/dl Est Glomerular Filtrat Rate mL/min > 60 mL/min Glucose Level 100 mg/dl Calcium Level 9.0 mg/dl Total Bilirubin 0.6 mg/dl Direct Bilirubin 0.00 mg/dl Indirect Bilirubin 0.6 mg/dl Aspartate Amino Transf (AST/SGOT) 229 IU/L Alanine Aminotransferase (ALT/SGPT) 53 IU/L Alkaline Phosphatase 294 IU/L Ammonia < 9 umol/l Troponin I < 0.012 ng/ml Total Protein 8.4 g/dl Albumin 3.9 g/dl Globulin 4.50 g/dl Albumin/Globulin Ratio 0.86 Lipase 3593 U/L Ethyl Alcohol Level 514.0 mg/dl Current Medications Medications Dose Sig/Mayra Start Time Status Last (Trade) Ordered Route PRN Stop Time Admin Dose Reason Admin Morphine 4 mg ONCE STAT 12/10/18 DC 12/10/18 Sulfate IV 21:01 21:23 (morphine) 12/10/18 21:03 Ondansetron 4 mg ONCE STAT 12/10/18 DC 12/10/18 HCl (Zofran IV 21: 21:21 Inj) 12/10/18 21:03 Sodium 1,000 ml @ Q1H STAT 12/10/18 12/10/18 Chloride 1,000 mls/hr IV 21:54 21:54 12/10/18 22:53 Lactated 1,000 ml @ Q1H STAT 12/10/18 Ringer's 1,000 mls/hr IV 21:54 12/10/18 22:53 Ketorolac 15 mg ONCE STAT 12/10/18 DC Tromethamine IV 21:54 (Toradol) 12/10/18 21:55 Procedures/MDM IV line was established patient was placed on clinical education coordinator rhythm strip revealed a narrow complex tachycardia at 130 bpm with upright P and T waves. Patient was afebrile One AP view of the chest performed, read by me reveals no acute infiltrates, normal mediastinum, sharp costophrenic and cardiac borders, no air under the diaphragm. Otherwise unremarkable chest x-ray. EKG performed, read by me revealed a sinus tachycardia at 127 bpm, normal axis, narrow QRS complex, no concerning ST elevations or depressions noted. I administered morphine 4 mg IV and Zofran 4 mg IV for complaints of pain and vomiting. Patient was also dehydrated and administered 2 L normal saline IV CBC was within normal limits, liver function tests reveal elevated AST otherwise unremarkable, electrolytes revealed mild hypokalemia, lipase elevated to 3600, ethanol level elevated to 514. Critical Care: Time: 41 minutes, this was time separate from other billable procedures. Treatments/Evaluations: Close monitoring and treatment of unstable vital signs, cardiorespiratory, and neurologic status, while maintaining tight balance of fluid, respiratory, and cardiac interventions. I spoke to her PMD Dr. Flynn who agreed to the ED management provided today, he also recommended admission for continued hydration and control of pain and vomiting. Imaging will be deferred for now until GI consultation. Patient was initially admitted to telemetry setting although her tachycardia did improve so she will be admitted to [facility]. Departure Diagnosis: Primary Impression: Intractable abdominal pain Additional Impressions: Intractable vomiting Vomiting type: unspecified Nausea presence: with nausea Qualified Codes: R11.2 - Nausea with vomiting, unspecified Alcohol poisoning Encounter type: initial encounter Injury intent: undetermined intent Qualified Codes: T51.94XA - Toxic effect of unspecified alcohol, undetermined, initial encounter Acute pancreatitis Pancreatitis type: alcohol induced Acute pancreatitis complication: unspecified Qualified Codes: K85.20 - Alcohol induced acute pancreatitis without necrosis or infection Condition: Serious YUVAL MCPHERSON MD Dec 10, 2018 21:02
[2018-12-10] MEDS ORDERED: LACTATED RINGER'S 1,000 ML IV STA (21:54)
[2018-12-10] MEDS ORDERED: SOD CHLORIDE 0.9% 1,000 ML IV STA (21:54)
[2018-12-10] MEDS ORDERED: KETOROLAC 15 MG INJ IV STA (21:54)
[2018-12-10] MEDS ORDERED: LORAZEPAM 2 MG INJ IV PRN (23:30)
[2018-12-10] MEDS ORDERED: HYDROmorphONE 0.5 MG/0.5 ML SYG IV STA (23:43)
[2018-12-11] VITALS (11 sets, daily range): BP systolic 104–137; BP diastolic 73–88; PULSE 108–147; RESP 16–18; Ht 165.1 cm; Wt 45.0 kg
[2018-12-11] MEDS: POTASSIUM CHLORIDE 30 MEQ in SOD CHLORIDE 0.45% 1,000 ML IV SCH ×4 (00:26→22:58)
[2018-12-11] MEDS: morphine 2 MG INJ IV PRN ×5 (04:06→21:22)
[2018-12-11] MEDS: PANTOPRAZOLE 40 MG INJ IV SCH ×2 (06:17→17:34)
[2018-12-11] MEDS: METOCLOPRAMIDE 10 MG INJ IV SCH ×4 (06:18→21:21)
[2018-12-11] MEDS: SPIRONOLACTONE 25 MG TAB PO SCH (08:46)
--- NOTE | 2018-12-11 08:47 | HP ---
DATE OF ADMISSION: 12/10/2018 ADMITTING DIAGNOSIS: Intractable vomiting, abdominal pain, possible pancreatitis. HISTORY OF PRESENT ILLNESS: The patient is a 38-year-old female with hypertension, hepatic steatosis , anxiety, who was recently in the hospital 3 weeks ago who was admitted with significant abdominal p ain, nausea, vomiting at home. The patient was discharged from the hospital 3 weeks ago and was foun d to have hepatic steatosis, likely due to alcohol. The patient was doing well, but continued to hav e increasing abdominal pain, especially in the last few days prior to admission. The patient over th e last 3 days has been having significant vomiting with anything that she eats as well as more abdomi nal pain, bloating, fullness. The patient was found to have alcohol in her system of significant lev el in the emergency room yesterday. The patient reports that she did drink yesterday and has been dr inking on and off for the last 3 weeks. REVIEW OF SYSTEMS: No fevers, chills, night sweats, no chest pain, shortness of breath, cough. The patient has intermittent dizziness and lightheadedness, so she was standing and her heart has been ra cing at times, but no chest pain. PAST MEDICAL HISTORY: Hepatic steatosis, likely due to alcohol, hypertension, gastroesophageal reflu x disease, gastritis, anxiety. PAST SURGICAL HISTORY: None. FAMILY HISTORY: Noncontributory. ALLERGIES: PENICILLIN. MEDICATIONS: 1. Famotidine 20 mg b.i.d. 2. Reglan 5 mg q.a.c. at bedtime 3. Spironolactone 50 mg half daily. SOCIAL HISTORY: No tobacco. The patient is , currently on disability, has 3 children, lives with her parents currently. PHYSICAL EXAMINATION: VITAL SIGNS: In the emergency room initially pulse of 143, respiratory rate 26, oxygen saturation 98 % on room air, blood pressure 147/88, temperature 97.5, currently temperature is 97.8, pulse 120, reg ular, respirations 18, blood pressure 106/74, oxygen saturation 99% on room air. GENERAL: Well-developed, ill-appearing female, in no acute distress, lying in bed. HEENT: EOMI, PERRLA. Anicteric sclerae. Oropharynx is clear except for decreased mucous pooling. NECK: No jugular venous distention, 2+ carotid upstroke without bruits. No thyromegaly. LUNGS: Clear to auscultation bilaterally. HEART: Tachycardic but regular. No murmurs, gallops or rub noted. ABDOMEN: Significant hepatosplenomegaly with moderate to severe tenderness with mild palpation. Pos itive bowel sounds. Mild distention. EXTREMITIES: No cyanosis, clubbing or edema. GENITOURINARY: Deferred. NEUROLOGIC: Nonfocal. LABORATORY EXAMINATION: Sodium 149, potassium 3.3, chloride 108, bicarbonate 24, BUN of 4, creatinin e of 0.43, glucose 100, calcium 9.0, total bilirubin 0.6, AST of 229, ALT 53, alkaline phosphatase 29 4. Ammonia level less than 9. Troponin level less than 0.012. Total protein 8.4, albumin of 3.9, l ipase of 3593. Toxicology screen shows ethyl alcohol level of 514. PTT of 35.1, INR 1.08. PT of 14 .1. Chest x-ray shows no pleural effusions, otherwise clear. IMPRESSION AND PLAN: The patient is a 38-year-old female with a history of alcohol abuse and hepatic steatosis, hepatosplenomegaly who presented to the emergency room with nausea, vomiting and signific ant abdominal pain. The patient is being admitted for further care to treat her intractable vomiting , abdominal pain, and rehydrate. 1. Hyperlipasemia. This is likely related to the patient's drinking and we will check an abdominal ultrasound to evaluate the pancreas. The patient's last admission, the patient had CT scans and ultr asounds, which showed no inflammation of the pancreas despite the elevated lipase. We will recheck a nd continue on current plan with treating her pain. We will monitor amylase and lipase as well. 2. Alcohol abuse. We will give p.r.n. 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 We will get psychiatry involved as well to treat the underlying ca use for her abuse as patient is anxious and depressed. 3. Tachycardia, likely in part related to her dehydration, but also in part related to alcohol withd faith. We will give p.r.n. Ativan. Monitor in telemetry and treat expectantly, but at this point no treatment for the tachycardia. 4. GERD/gastritis. We will give the patient IV Protonix now and try to advance diet. Dictated By: JOS VANEGAS MD SR/NTS Conf#: [id number] DID#: [id number] CC: JOS VANEGAS MD;*EndCC*
[2018-12-11] MEDS ORDERED: MAGNESIUM SULFATE 3 GM in DEXTROSE 5% 100 ML IVPB ONE (11:00)
[2018-12-12] VITALS (11 sets, daily range): BP systolic 112–127; BP diastolic 73–83; PULSE 73–128; RESP 18–20
[2018-12-12] MEDS: morphine 2 MG INJ IV PRN ×6 (01:14→22:38)
[2018-12-12] MEDS: METOCLOPRAMIDE 10 MG INJ IV SCH ×4 (05:23→22:37)
[2018-12-12] MEDS: PANTOPRAZOLE 40 MG INJ IV SCH ×2 (05:23→18:40)
--- NOTE | 2018-12-12 08:19 | PN ---
DATE: 12/12/2018 SUBJECTIVE: The patient is still complaining of moderate abdominal pain, nausea. The patient threw up multiple times yesterday. OBJECTIVE: VITAL SIGNS: Temperature 98.5, pulse currently 111, but as high as 128 yesterday. Blood pressure is 123/79, oxygen saturation 97% on room air. GENERAL: Well-developed female in no acute distress, sitting up in bed. LUNGS: Clear to auscultation bilaterally. HEART: Tachycardic, but regular. ABDOMEN: Diffusely tender with hepatosplenomegaly. Positive bowel sounds. Mild distention. EXTREMITIES: No cyanosis, clubbing or edema. LABORATORY DATA: Pending at the time of this dictation, but yesterday's result showed a magnesium of 1.4, lipase of 963, amylase of 162, albumin 3.1. Lactate dehydrogenase 640, alkaline phosphatase 207, AST 160, ALT of 142, potassium of 3.7. IMAGING STUDIES: Abdominal ultrasound shows mild hepatomegaly with fatty infiltration of liver, small amount of ascites, sludge and stones within the gallbladder with mild pericholecystic fluid and gallbladder wall thickening. The visualized portions of the pancreas were unremarkable. ASSESSMENT AND PLAN: 1. Intractable vomiting, abdominal pain, hyperlipasemia. The patient's lipase is improved just reported to have no alcohol intake. The patient continued to have multiple episodes of nausea and vomiting yesterday and is on full liquids. The patient does not tolerate this. We will place on n.p.o. except for ice chips. We will see if she can tolerate full liquids. Continue with Reglan, analgesics and bowel rest. We will continue to monitor lipase, amylase, and liver function test. 2. Hypertension, stable without need for medications. We will continue to monitor. 3. Anxiety. We will start the patient on diazepam 2 mg b.i.d. and have psychiatry consult the patient to assist. 4. Hypomagnesemia. The patient received 3 grams yesterday and awaits results from today, but will continue to replace as necessary. 5. Hypokalemia. The patient's potassium was replaced as of yesterday, but will continue to monitor, but today's results are pending. 6.Pancytopenia:worse; related to pt's etoh abuse and splenomegaly; will monitor but no need for transfusion of blood products at this time Dictated By: JOS VANEGAS MD SR/NTS Conf#: [id number] DID#: [id number] CC: DARRICK STAUFFER NP; JOS VANEGAS MD;*EndCC* MTDD
[2018-12-12] MEDS: DIAZEPAM 2 MG TAB PO SCH ×2 (08:28→20:50)
[2018-12-12] MEDS: SPIRONOLACTONE 25 MG TAB PO SCH (08:28)
[2018-12-12] MEDS: POTASSIUM CHLORIDE 30 MEQ in SOD CHLORIDE 0.45% 1,000 ML IV SCH ×3 (08:28→17:41)
--- NOTE | 2018-12-12 18:03 | PSY ---
Date/Time of Note Date/Time of Note DATE: 12/12/18 TIME: 17:57 Psychiatric Subjective Eval Consent Pt consented to telemedicine: No Subjective Evaluation Patient location: inpatient Chief Complaint: abdominal pain x 3weeks, worse today History of present illness Patient is a 38-year-old female with history of hepatic steatosis, hypertension,who is admitted for abdominal pain, nausea, vomiting. On a [id number] evaluation patient states she is increasingly anxious, because she has a lot of issues going on. Patient states she has a restraining order from her ex-and several other personal issues going on which has contributed to her anxiety. Explained risk and benefits of benzo and possibly adding BuSpar bedside patient declined states she only wants to take Valium. Past psychiatric history Denies Hospitalization: other Medical history Problems Medical Problems: (1) Abdominal pain Status: Acute (2) Acute pancreatitis Status: Acute (3) Alcohol poisoning Status: Acute (4) Anemia Status: Acute (5) Intractable abdominal pain Status: Acute (6) Intractable vomiting Status: Acute (7) Liver failure Status: Acute (8) Pleural effusion Status: Acute (9) Pre-syncope Status: Acute (10) Steatohepatitis Status: Chronic Allergies: Coded Allergies: Penicillins (Verified Allergy, Intermediate, rash, 10/27/18) amoxicillin (Verified Allergy, Intermediate, rash, 10/27/18) Substance Abuse Substance abuse history: No Prior substance abuse treatmen: No Social History Marital status: other DPA/Conservatorship: No Psychiatric Objective Eval Review of Systems: Review of Systems: Not Applicable Physical Examination: Physical Examination: Not Applicable Appetite: Decreased Energy: Decreased Interest: Decreased Mental Status Examination: Appearance: Groomed Eye Contact: Good Psychomotor Activity: Slow Behavior: Cooperative Speech: Clear AFFECT: Appropriate, Anxious Mood: Appropriate/Full, Anxious Though Process: Linear Thought Content: Normal Orientation: x4 Cognition: Alert Insight: Intact Judgement: Intact Attention Span: Intact Laboratory Results Laboratory Tests Test 12/10/18 21:21 12/10/18 21:26 12/10/18 23:00 12/11/18 01:06 Bedside Glucose 90 mg/dL White Blood Count 7.3 10^3/ul Red Blood Count 3.91 10^6/ul Hemoglobin 12.7 g/dl Hematocrit 36.3 % Mean Corpuscular 92.8 fl Volume Mean Corpuscular 32.5 pg Hemoglobin Mean Corpuscular 35.0 g/dl Hemoglobin Concen t Red Cell 13.9 % Distribution Width Platelet Count 75 10^3/UL Mean Platelet 11.2 fl Volume Immature 0.400 % Granulocytes % Neutrophils % % Segmented 41 % Neutrophils % (Manual) Band Neutrophils 2 % % (Manual) Lymphocytes % % Lymphocytes % 51 % (Manual) Monocytes % % Monocytes % 2 % (Manual) Eosinophils % % Eosinophils % 3 % (Manual) Basophils % % Basophils % 1 % (Manual) Nucleated Red 0.0 /100WBC Blood Cells % Immature 0.030 10^3/ul Granulocytes # Neutrophils # 10^3/ul Neutrophils # 3.0 10^3/ul (Manual) Band Neutrophils 0.1 10^3/ul # Lymphocytes 3.7 10^3/ul (Manual) Lymphocytes # 10^3/ul Monocytes # 10^3/ul Monocytes # 0.1 10^3/ul (Manual) Eosinophils # 10^3/ul Basophils # 10^3/ul Basophils # 0.0 10^3/ul (Manual) Nucleated Red 10^3/ul Blood Cells # Platelet Estimate DECREASED Polychromasia 1+ Prothrombin Time 14.1 Sec Prothrombin Time 1.1 Ratio INR International 1.08 Normalized Ratio Activated 35.1 Sec Partial Thrombopl ast Time Sodium Level 149 mmol/L Potassium Level 3.3 mmol/L Chloride Level 108 mmol/L Carbon Dioxide 24 mmol/L Level Anion Gap 17 Blood Urea 4 mg/dl Nitrogen Creatinine 0.43 mg/dl Est Glomerular > 60 mL/min Filtrat Rate mL/min Glucose Level 100 mg/dl Calcium Level 9.0 mg/dl Total Bilirubin 0.6 mg/dl Direct Bilirubin 0.00 mg/dl Indirect 0.6 mg/dl Bilirubin Aspartate Amino 229 IU/L Transf (AST/SGOT) Alanine 53 IU/L Aminotransferase (ALT/SGPT) Alkaline 294 IU/L Phosphatase Ammonia < 9 umol/l Troponin I < 0.012 ng/ml Total Protein 8.4 g/dl Albumin 3.9 g/dl Globulin 4.50 g/dl Albumin/Globulin 0.86 Ratio Lipase 3593 U/L Urine Opiates Positive Screen Urine Negative Barbiturates Urine Negative Amphetamines Screen Urine Negative Benzodiazepines Screen Urine Cocaine NEGATIVE Screen Urine Negative Cannabinoids Ethyl Alcohol 514.0 mg/dl Level Urine Color YELLOW Urine Clarity CLEAR Urine pH 6.0 Urine Specific 1.010 [place] Urine Ketones 1+ mg/dL Urine Nitrite NEGATIVE mg/dL Urine Bilirubin NEGATIVE mg/dL Urine NEGATIVE mg/dL Urobilinogen Urine Leukocyte NEGATIVE Esther/ul Esterase Urine Hemoglobin NEGATIVE mg/dL Urine Glucose NEGATIVE mg/dL Urine Total NEGATIVE mg/dl Protein POC Beta HCG, NEGATIVE Qualitative Test 12/11/18 07:13 12/12/18 07:59 Sodium Level 144 mmol/L 135 mmol/L Potassium Level 3.7 mmol/L 4.3 mmol/L Chloride Level 110 mmol/L 101 mmol/L Carbon Dioxide 23 mmol/L 25 mmol/L Level Anion Gap 11 9 Blood Urea 3 mg/dl < 2 mg/dl Nitrogen Creatinine 0.39 mg/dl 0.37 mg/dl Est Glomerular > 60 mL/min > 60 mL/min Filtrat Rate mL/min Glucose Level 65 mg/dl 74 mg/dl Calcium Level 7.9 mg/dl 8.4 mg/dl Magnesium Level 1.4 mg/dl 1.8 mg/dl Total Bilirubin 0.5 mg/dl 1.2 mg/dl Direct Bilirubin 0.00 mg/dl 0.00 mg/dl Indirect 0.5 mg/dl 1.2 mg/dl Bilirubin Aspartate Amino 160 IU/L 120 IU/L Transf (AST/SGOT) Alanine 42 IU/L 39 IU/L Aminotransferase (ALT/SGPT) Alkaline 207 IU/L 224 IU/L Phosphatase Lactate 640 IU/L Dehydrogenase Total Protein 6.8 g/dl 7.1 g/dl Albumin 3.1 g/dl 3.3 g/dl Globulin 3.70 g/dl 3.80 g/dl Albumin/Globulin 0.83 0.86 Ratio Amylase Level 162 U/L Lipase 963 U/L 934 U/L White Blood Count 2.7 10^3/ul Red Blood Count 2.88 10^6/ul Hemoglobin 9.2 g/dl Hematocrit 27.6 % Mean Corpuscular 95.8 fl Volume Mean Corpuscular 31.9 pg Hemoglobin Mean Corpuscular 33.3 g/dl Hemoglobin Concen t Red Cell 13.8 % Distribution Width Platelet Count 28 10^3/UL Mean Platelet 11.4 fl Volume Immature 0.000 % Granulocytes % Neutrophils % 59.0 % Segmented 48 % Neutrophils % (Manual) Lymphocytes % 26.7 % Lymphocytes % 44 % (Manual) Monocytes % 11.0 % Monocytes % 2 % (Manual) Eosinophils % 2.2 % Eosinophils % 3 % (Manual) Basophils % 1.1 % Basophils % 2 % (Manual) Myelocytes % 1 % (Manual) Nucleated Red 0.0 /100WBC Blood Cells % Immature 0.000 10^3/ul Granulocytes # Neutrophils # 1.6 10^3/ul Lymphocytes 1.1 10^3/ul (Manual) Lymphocytes # 0.7 10^3/ul Monocytes # 0.3 10^3/ul Monocytes # 0.0 10^3/ul (Manual) Eosinophils # 0.1 10^3/ul Basophils # 0.0 10^3/ul Basophils # 0.0 10^3/ul (Manual) Myelocytes # 0.0 10^3/ul Nucleated Red 0.0 10^3/ul Blood Cells # Platelet Estimate SIG DECREASED Giant Platelets 4 % Polychromasia 1+ Prothrombin Time 15.6 Sec Prothrombin Time 1.2 Ratio INR International 1.23 Normalized Ratio Activated 35.4 Sec Partial Thrombopl ast Time Assessment and Plan Assessment/Diagnosis Diagnosis Anxiety NOS Recommendation/Plan Medication Management Continue current medications Valium 2 mg twice daily, as ordered by the primary physician. Multiple antipsychotics: No Psychotherapy Provide supportive therapy Discharge Disposition: Other Legal Status: Voluntary (Does not meet criteria for 5150 hold.) EH HOLLINGSWORTH NP Dec 12, 2018 18:03
[2018-12-13] VITALS (10 sets, daily range): BP systolic 110–128; BP diastolic 60–86; PULSE 92–126; RESP 18
[2018-12-13] MEDS: POTASSIUM CHLORIDE 30 MEQ in SOD CHLORIDE 0.45% 1,000 ML IV SCH ×4 (00:18→23:18)
[2018-12-13] MEDS: morphine 2 MG INJ IV PRN ×5 (02:30→21:20)
[2018-12-13] MEDS: PANTOPRAZOLE 40 MG INJ IV SCH ×2 (06:26→17:56)
[2018-12-13] MEDS: METOCLOPRAMIDE 10 MG INJ IV SCH ×4 (06:26→21:20)
--- NOTE | 2018-12-13 08:25 | PN ---
DATE: 12/13/2018 SUBJECTIVE: The patient is feeling a little bit better. No nausea and vomiting, but still with sign ificant abdominal pain. The patient feels less anxious. OBJECTIVE: VITAL SIGNS: Temperature 98.0, pulse anywhere from 92 to 126, respiratory rate 18, blood pressure 11 0/75, oxygen saturation 98% on room air. GENERAL: Well-developed, thin female, in no acute distress, sitting up in bed. LUNGS: Clear to auscultation bilaterally. HEART: Tachycardic, but regular. ABDOMEN: Moderate hepatosplenomegaly with moderate tenderness to palpation. Positive bowel sounds. No rebound. Mild distention. PSYCHIATRIC: The patient is mildly anxious, but otherwise no suicidal ideation, no homicidal ideatio n. Normal thought content. NEUROLOGIC: Nonfocal. LABORATORY DATA: Pending at the time of this dictation. Platelet count on 12/12/18 was 28,000. ASSESSMENT AND PLAN: 1. Hyperlipasemia/hepatic steatosis/alcoholic hepatitis. The patient is doing better with improved numbers as of yesterday, but today's results are pending. We will continue with current treatment pl an, hydration, analgesia and monitoring. 2. Tachycardia, stable, but persistent. Continue telemetry monitoring, hydration and diazepam. 3. Pancytopenia. The patient yesterday had a platelet count of 28,000 and is currently having her p eriod. We will await today's results, but the patient may need a platelet transfusion and blood domínguez sfusion depending. The patient reports that her period is heavier than usual and it just started tod ay. 4. Anxiety. The patient is improved with the diazepam. We will continue at this dosage and hold of f on any other medications at this time. Appreciate Shreyas Mcdaniel consultation yesterday from a p sychiatric standpoint. Dictated By: JOS VANEGAS MD SR/NTS Conf#: [id number] DID#: [id number] CC: SHREYAS MCDANIEL INCIDENT RESPONSE CONSULTANT; JOS VANEGAS MD;*[facility]*
[2018-12-13] MEDS: SPIRONOLACTONE 25 MG TAB PO SCH (08:52)
[2018-12-13] MEDS: DIAZEPAM 2 MG TAB PO SCH ×2 (08:52→20:30)
[2018-12-13] MEDS ORDERED: MAGNESIUM SULFATE 3 GM in DEXTROSE 5% 100 ML IVPB ONE (11:00)
[2018-12-13] MEDS: traMADol 50 MG TAB PO PRN ×2 (11:48→18:02)
[2018-12-14] VITALS (11 sets, daily range): BP systolic 111–117; BP diastolic 69–77; PULSE 87–113; RESP 18–20
[2018-12-14] MEDS: morphine 2 MG INJ IV PRN ×5 (01:24→18:56)
[2018-12-14] MEDS: PANTOPRAZOLE 40 MG INJ IV SCH ×2 (05:24→17:56)
[2018-12-14] MEDS: METOCLOPRAMIDE 10 MG INJ IV SCH ×4 (05:24→20:30)
[2018-12-14] MEDS: POTASSIUM CHLORIDE 30 MEQ in SOD CHLORIDE 0.45% 1,000 ML IV SCH ×2 (07:27→16:00)
--- NOTE | 2018-12-14 09:35 | PN ---
DATE: 12/14/2018 SUBJECTIVE: The patient with no more nausea and vomiting, but is having heavier periods and having t o change her tampon every 20 to 30 minutes and the patient is feeling tired. OBJECTIVE: VITAL SIGNS: Temperature 98.0, pulse 108 regular, respirations 18, blood pressure 114/69, oxygen sat uration 98% on room air. GENERAL: Well-developed, pale, female in no acute distress, sitting up in bed. LUNGS: Clear to auscultation bilaterally. HEART: Tachycardic, but regular. ABDOMEN: Diffuse tenderness with moderate hepatosplenomegaly noted. Normoactive bowel sounds. EXTREMITIES: No cyanosis, clubbing or edema. LABORATORY DATA: Pending at the time of this dictation. ASSESSMENT AND PLAN: 1. Hepatic steatosis/hyperlipasemia, improved. The patient with no more nausea and vomiting and lip ase levels continue to improve off of alcohol. We will continue to monitor. 2. Pancytopenia, worse and levels are pending as of today. The patient is currently bleeding vagina lly with her normal menses, but heavier than usual. The patient is changing her tampon every 20 to 3 0 minutes. We will likely have to transfuse both platelets as well as packed red blood cells today a nd we will await results in order to react to that. We will continue to monitor. We will also give vitamin K x1 as the patient has had a mildly elevated protime and INR. 3. Hypomagnesemia. Levels are pending today, but we will continue to monitor and replace as necessa ry. 4. Anxiety, stable on diazepam will continue with this at this point as patient does not want any ad ditional medications at this time. Dictated By: JOS VANEGAS MD SR/NTS Conf#: [id number] DID#: [id number] CC: JOS VANEGAS MD; DARRICK STAUFFER NP;*End*
[2018-12-14] MEDS: DIAZEPAM 2 MG TAB PO SCH ×2 (09:39→20:30)
[2018-12-14] MEDS ORDERED: PHYTONADIONE 10 MG in DEXTROSE 5% 50 ML IVPB ONE (10:00)
[2018-12-14] MEDS: SPIRONOLACTONE 25 MG TAB PO SCH (10:27)
[2018-12-14] MEDS ORDERED: DIPHENHYDRAMINE 50 MG INJ IV ONE (10:30)
[2018-12-14] MEDS ORDERED: ACETAMINOPHEN 325 MG TAB PO ONE (10:30)
[2018-12-14] MEDS: traMADol 50 MG TAB PO PRN ×2 (10:37→16:52)
[2018-12-14] MEDS ORDERED: MAGNESIUM SULFATE 3 GM in DEXTROSE 5% 100 ML IVPB ONE (12:00)
[2018-12-15] VITALS (12 sets, daily range): BP systolic 102–120; BP diastolic 66–83; PULSE 97–112; RESP 16–20
[2018-12-15] MEDS: morphine 2 MG INJ IV PRN ×4 (00:01→18:23)
[2018-12-15] MEDS: traMADol 50 MG TAB PO PRN ×4 (02:01→22:30)
[2018-12-15] MEDS: POTASSIUM CHLORIDE 30 MEQ in SOD CHLORIDE 0.45% 1,000 ML IV SCH ×4 (02:01→22:30)
[2018-12-15] MEDS: PANTOPRAZOLE 40 MG INJ IV SCH ×2 (05:15→18:23)
[2018-12-15] MEDS: METOCLOPRAMIDE 10 MG INJ IV SCH ×4 (08:55→20:33)
[2018-12-15] MEDS: SPIRONOLACTONE 25 MG TAB PO SCH (08:55)
[2018-12-15] MEDS: DIAZEPAM 2 MG TAB PO SCH ×2 (08:56→20:33)
--- NOTE | 2018-12-15 10:11 | PN ---
DATE: 12/15/2018 SUBJECTIVE: Patient is feeling a little better. The patient did have a bloody nose last night and s he currently is changing her tampons every 50 to 60 minutes at this point. The patient continues to have significant abdominal pain. OBJECTIVE: VITAL SIGNS: Temperature 98.5, pulse of 100 and regular, but upwards of 112, respirations 20, blood pressure 113/66, oxygen saturation 97% on room air. GENERAL: Well-developed, thin female in no acute distress, lying in bed. CHEST: Clear to auscultation bilaterally. HEART: Tachycardic, but regular. ABDOMEN: Moderate diffuse tenderness with moderate hepatosplenomegaly. Positive bowel sounds. EXTREMITIES: No cyanosis, clubbing or edema. NEUROLOGIC: Nonfocal. LABORATORY DATA: White blood cell count 2.4, hemoglobin of 8.3, hematocrit 25.9, platelets of 48,000 . Chemistry panel pending at the time of this dictation. ASSESSMENT AND PLAN: 1. Pancytopenia. Patient is status post transfusion of platelets yesterday with improvement in her platelet level and slowing of her bleeding. Will have a low threshold for transfusion of packed red blood cells and further platelets if they continue to drop while she is actively bleeding. 2. Hepatic steatosis/hyperlipasemia. The patient continues to improve slowly without drinking and h er lipase was 754 yesterday. We will continue to monitor and continue treatment. 3. Hypomagnesemia, ongoing. We will continue to replace as necessary and await results from today. 4. Severe protein calorie malnutrition. This was present on admission and we will continue to encou rage increased nutrition as well as giving Boost supplements to help her nutritional status. 5. Anxiety, stable on diazepam. Continue with current medications. Dictated By: JOS VANEGAS MD SR/NTS Conf#: [id number] DID#: [id number]
[2018-12-16] VITALS (10 sets, daily range): BP systolic 101–111; BP diastolic 58–72; PULSE 85–109; RESP 16–18
[2018-12-16] MEDS: morphine 2 MG INJ IV PRN ×5 (01:29→23:03)
[2018-12-16] MEDS: traMADol 50 MG TAB PO PRN ×3 (04:34→17:50)
[2018-12-16] MEDS: PANTOPRAZOLE 40 MG INJ IV SCH ×2 (05:01→17:50)
[2018-12-16] MEDS: POTASSIUM CHLORIDE 30 MEQ in SOD CHLORIDE 0.45% 1,000 ML IV SCH ×2 (06:42→15:12)
[2018-12-16] MEDS: DIAZEPAM 2 MG TAB PO SCH ×2 (09:06→20:47)
[2018-12-16] MEDS: METOCLOPRAMIDE 10 MG INJ IV SCH ×4 (09:06→20:47)
[2018-12-16] MEDS: SPIRONOLACTONE 25 MG TAB PO SCH (09:06)
--- NOTE | 2018-12-16 15:38 | PN ---
Date/Time of Note Date/Time of Note DATE: 12/16/18 TIME: 15:36 Assessment/Plan VTE Prophylaxis Risk score (from Ns)>0 risk: 0 SCD applied (from [facility] [place] No SCD contraindicated: low risk/ambulating Pharmacological prophylaxis: NA/contraindicated Pharm contraindication: bleeding Lines/Catheters IV [facility]ter Type (from [facility]): Peripheral IV Assessment/Plan Problems: (1) Menorrhalgia Status: Acute Comment: s/p platelet transfusion with persistent heavy bleed. Will give one more vitamin K injection since PT /PTT are still elevated. (2) Leukopenia Status: Acute Comment: pancytopenia probably due to splenic sequestration from portal hypertension and splenomegaly. Expect improvement only if patient stay off alcohol allowing hepatitis to resolve. (3) Thrombocytopenia Status: Acute Comment: improved status post platelet transfusion. (4) Intractable abdominal pain Status: Acute Comment: borderline controlled on tramadol and morphine. It should be calming down with improvement in hepatitis and pancreatitis once patient stop drinking alcohol. (5) Acute pancreatitis Status: Acute Comment: continue to follow amylase and lipase level. Qualifiers: Pancreatitis type: alcohol induced Acute pancreatitis complication: unspecified Qualified Codes: K85.20 - Alcohol induced acute pancreatitis without necrosis or infection (6) Anemia Status: Acute Comment: probably due to blood loss plus sequestration. Check iron and b12 levels. (7) Hypomagnesemia Status: Acute Comment: replace IV mag sulfate. Result Diagram: 12/16/18 0734 12/16/18 0734 Results 24hrs Laboratory Tests Test 12/16/18 07:34 White Blood Count 2.2 L Red Blood Count 2.78 L Hemoglobin 8.9 L Hematocrit 27.2 L Mean Corpuscular Volume 97.8 Mean Corpuscular Hemoglobin 32.0 Mean Corpuscular Hemoglobin Concent 32.7 Red Cell Distribution Width 14.6 H Platelet Count 55 L Mean Platelet Volume 11.3 H Immature Granulocytes % 0.000 L Neutrophils % Segmented Neutrophils % (Manual) 51 Band Neutrophils % (Manual) 3 Lymphocytes % Lymphocytes % (Manual) 38 Monocytes % Monocytes % (Manual) 6 Eosinophils % Basophils % Basophils % (Manual) 2 Nucleated Red Blood Cells % 0.0 Immature Granulocytes # 0.000 Neutrophils # Neutrophils # (Manual) 1.1 L Band Neutrophils # 0.0 Lymphocytes (Manual) 0.8 Lymphocytes # Monocytes # Monocytes # (Manual) 0.1 L Eosinophils # Basophils # Basophils # (Manual) 0.0 Nucleated Red Blood Cells # Platelet Estimate SIG DECREASED Giant Platelets 10 H Polychromasia 1+ Poikilocytosis 1+ Anisocytosis 1+ Macrocytosis 1+ Target Cells 1+ Prothrombin Time 15.9 H Prothrombin Time Ratio 1.2 INR International Normalized Ratio 1.26 Activated Partial Thromboplast Time 40.5 H Sodium Level 136 Potassium Level 4.4 Chloride Level 101 Carbon Dioxide Level 29 Anion Gap 6 Blood Urea Nitrogen < 2 L Creatinine 0.43 L Est Glomerular Filtrat Rate mL/min > 60 Glucose Level 80 Calcium Level 9.1 Magnesium Level 1.3 L Total Bilirubin 0.8 Direct Bilirubin 0.00 Indirect Bilirubin 0.8 Aspartate Amino Transf (AST/SGOT) 91 H Alanine Aminotransferase (ALT/SGPT) 36 Alkaline Phosphatase 171 H Total Protein 6.6 Albumin 3.1 L Globulin 3.50 H Albumin/Globulin Ratio 0.88 Lipase 634 H Subjective 24 Hr Interval Summary Free Text/Dictation Patient still complains of excessive vaginal bleeding and RUQ abdominal pain. Exam/Review of Systems Exam Vitals Vital Signs Date Temp Pulse Resp B/P (MAP) Pulse Ox O2 O2 Flow FiO2 Time Delivery Rate 12/16/18 104 12:00 12/16/18 98.1 16 106/59 97 Room Air 11:09 (75) Intake and Output 12/15/18 12/15/18 12/16/18 1515:00 23:00 07:00 IntakeIntake Total 3600 ml 2000 ml BalanceBalance 3600 ml 2000 ml Exam awake and alert Constitutional: oriented Head: normocephalic, atraumatic ENMT: nl external ears & nose Neck: supple, non-tender Respiratory: clear to auscultation Cardiovascular: regular rate and rhythm, nl pulses Gastrointestinal: soft, bowel sounds, distended Musculoskeletal: nl extremities to inspection Results Results 24hrs Laboratory Tests Test 12/16/18 07:34 White Blood Count 2.2 L Red Blood Count 2.78 L Hemoglobin 8.9 L Hematocrit 27.2 L Mean Corpuscular Volume 97.8 Mean Corpuscular Hemoglobin 32.0 Mean Corpuscular Hemoglobin Concent 32.7 Red Cell Distribution Width 14.6 H Platelet Count 55 L Mean Platelet Volume 11.3 H Immature Granulocytes % 0.000 L Neutrophils % Segmented Neutrophils % (Manual) 51 Band Neutrophils % (Manual) 3 Lymphocytes % Lymphocytes % (Manual) 38 Monocytes % Monocytes % (Manual) 6 Eosinophils % Basophils % Basophils % (Manual) 2 Nucleated Red Blood Cells % 0.0 Immature Granulocytes # 0.000 Neutrophils # Neutrophils # (Manual) 1.1 L Band Neutrophils # 0.0 Lymphocytes (Manual) 0.8 Lymphocytes # Monocytes # Monocytes # (Manual) 0.1 L Eosinophils # Basophils # Basophils # (Manual) 0.0 Nucleated Red Blood Cells # Platelet Estimate SIG DECREASED Giant Platelets 10 H Polychromasia 1+ Poikilocytosis 1+ Anisocytosis 1+ Macrocytosis 1+ Target Cells 1+ Prothrombin Time 15.9 H Prothrombin Time Ratio 1.2 INR International Normalized Ratio 1.26 Activated Partial Thromboplast Time 40.5 H Sodium Level 136 Potassium Level 4.4 Chloride Level 101 Carbon Dioxide Level 29 Anion Gap 6 Blood Urea Nitrogen < 2 L Creatinine 0.43 L Est Glomerular Filtrat Rate mL/min > 60 Glucose Level 80 Calcium Level 9.1 Magnesium Level 1.3 L Total Bilirubin 0.8 Direct Bilirubin 0.00 Indirect Bilirubin 0.8 Aspartate Amino Transf (AST/SGOT) 91 H Alanine Aminotransferase (ALT/SGPT) 36 Alkaline Phosphatase 171 H Total Protein 6.6 Albumin 3.1 L Globulin 3.50 H Albumin/Globulin Ratio 0.88 Lipase 634 H Medications Medication Current Medications Pantoprazole (Protonix Iv) 40 mg BID@0600,1800 IV Last administered on 12/16/18at 05:01; Admin Dose 40 MG; Start 12/11/18 at 06:00 Spironolactone (Aldactone) 25 mg AM PO Last administered on 12/16/18at 09:06; Admin Dose 25 MG; Start 12/11/18 at 09:00 Lorazepam (Ativan) 0.5 mg Q6 PRN IV AGITATION/ANXIETY; Start 12/10/18 at 23:30 Potassium Chloride 30 meq/ Sodium Chloride 1,015 ml @ 125 mls/hr Q8H8M IV Last administered on 12/16/18at 15:12; Admin Dose 125 MLS/HR; Start 12/10/18 at 23:30 Tramadol HCl (Ultram) 50 mg Q6 PRN PO PAIN LEVEL 6-10 Last administered on 12/16/18at 11:12; Admin Dose 50 MG; Start 12/10/18 at 23:30 Metoclopramide HCl (Reglan) 10 mg AC MEALS AND BEDTIME IV Last administered on 12/16/18 11:12; Admin Dose 10 MG; Start 12/11/18 at 07:00 Morphine Sulfate (morphine) 2 mg Q4 PRN IV PAIN LEVEL 7-10 Last administered on 12/16/18 12:40; Admin Dose 2 MG; Start 12/10/18 at 23:30 Diazepam (Valium) 2 mg BID PO Last administered on 12/16/18at 09:06; Admin Dose 2 MG; Start 12/12/18 at 09:00 JOSH GONZALEZ MD Dec 16, 2018 15:38
[2018-12-16] MEDS ORDERED: MAGNESIUM SULFATE 4 GM/100 ML 100 ML IVPB ONE (17:00)
[2018-12-16] MEDS ORDERED: PHYTONADIONE 10 MG/ML INJ IM ONE (22:30)
[2018-12-17] VITALS (10 sets, daily range): BP systolic 100–106; BP diastolic 56–67; PULSE 83–107; RESP 17–20
[2018-12-17] MEDS: traMADol 50 MG TAB PO PRN ×4 (00:47→21:55)
[2018-12-17] MEDS: morphine 2 MG INJ IV PRN ×4 (04:29→20:20)
[2018-12-17] MEDS: PANTOPRAZOLE 40 MG INJ IV SCH ×2 (05:14→18:05)
[2018-12-17] MEDS: POTASSIUM CHLORIDE 30 MEQ in SOD CHLORIDE 0.45% 1,000 ML IV SCH ×4 (05:55→21:55)
[2018-12-17] MEDS: METOCLOPRAMIDE 10 MG INJ IV SCH ×4 (08:41→20:20)
[2018-12-17] MEDS: SPIRONOLACTONE 25 MG TAB PO SCH (08:42)
[2018-12-17] MEDS: DIAZEPAM 2 MG TAB PO SCH ×2 (08:42→20:20)
--- NOTE | 2018-12-17 12:38 | PN ---
Date/Time of Note Date/Time of Note DATE: 12/17/18 TIME: 12:33 Assessment/Plan VTE Prophylaxis Risk score (from Ns)>0 risk: 0 SCD applied (from [facility] [place] No SCD contraindicated: low risk/ambulating Pharmacological prophylaxis: NA/contraindicated Pharm contraindication: bleeding, thrombocytopenia Lines/Catheters IV Catheter Type (from [email or web address] Peripheral IV Assessment/Plan Assessment/Plan (1) Menorrhalgia Status: Acute Comment: s/p platelet transfusion with persistent heavy bleed. Status post vitamin K injection for elevated PT /PTT . (2) Leukopenia Status: Acute Comment: pancytopenia probably due to splenic sequestration from portal hypertension and splenomegaly. Expect improvement only if patient stay off alcohol allowing hepatitis to resolve. (3) Thrombocytopenia Status: Acute Comment: improved status post platelet transfusion. (4) Intractable abdominal pain Status: Acute Comment: borderline controlled on tramadol and morphine. It should be calming down with improvement in hepatitis and pancreatitis once patient stop drinking alcohol. (5) Acute pancreatitis Status: Acute Comment: improving amylase and lipase off alcohol. Qualifiers: Pancreatitis type: alcohol induced Acute pancreatitis complication: unspecified Qualified Codes: K85.20 - Alcohol induced acute pancreatitis without necrosis or infection (6) Anemia Status: Acute Comment: Start iron supplement for iron deficiency. (7) Hypomagnesemia Status: Acute Comment: improved with IV replacement mag. sulfate. (8) Hepatitis/ cirrhosis Status: Acute on chronic Comment: improving liver enzymes off alcohol. Result Diagram: 12/17/18 0620 12/17/18 0619 Results 24hrs Laboratory Tests Test 12/17/18 06:19 12/17/18 06:20 12/17/18 07:49 Prothrombin Time 16.0 H Prothrombin Time Ratio 1.3 INR International 1.27 Normalized Ratio Activated Partial Thromboplast 41.0 H Time Sodium Level 137 Potassium Level 4.4 Chloride Level 101 Carbon Dioxide Level 28 Anion Gap 8 Blood Urea Nitrogen < 2 L Creatinine 0.43 L Est Glomerular Filtrat > 60 Rate mL/min Glucose Level 107 Calcium Level 9.1 Iron Level 24 L Total Iron Binding Capacity 301 Percent Iron Saturation 8 L Total Bilirubin 0.7 Direct Bilirubin 0.00 Indirect Bilirubin 0.7 Aspartate Amino 78 H Transf (AST/SGOT) Alanine 35 Aminotransferase (ALT/SGPT) Alkaline Phosphatase 153 H Total Protein 6.4 Albumin 2.8 L Globulin 3.60 H Albumin/Globulin Ratio 0.77 Amylase Level 86 Lipase 497 H White Blood Count 2.0 L Red Blood Count 2.64 L Hemoglobin 8.6 L Hematocrit 25.7 L Mean Corpuscular Volume 97.3 Mean Corpuscular Hemoglobin 32.6 Mean Corpuscular 33.5 Hemoglobin Concent Red Cell Distribution Width 14.8 H Platelet Count 61 L Mean Platelet Volume 11.4 H Immature Granulocytes % 0.500 H Neutrophils % 41.0 Lymphocytes % 32.3 Monocytes % 21.2 H Eosinophils % 3.5 Basophils % 1.5 Nucleated Red Blood Cells % 0.0 Immature Granulocytes # 0.010 Neutrophils # 0.8 L Lymphocytes # 0.6 L Monocytes # 0.4 Eosinophils # 0.1 Basophils # 0.0 Nucleated Red Blood Cells # 0.0 Magnesium Level 1.9 Vitamin B12 Level > 1000 H Folate 9.6 Lab Scanned Report BLOOD TRANSFUSION Subjective 24 Hr Interval Summary Free Text/Dictation Patient still reports heavy menstrual bleeding though not as bad as before. Exam/Review of Systems Exam Vitals Vital Signs Date Temp Pulse Resp B/P (MAP) Pulse Ox O2 O2 Flow FiO2 Time Delivery Rate 12/17/18 98.7 96 20 102/61 97 11:21 (75) 12/16/18 Room Air 15:50 Intake and Output 12/16/18 12/16/18 12/17/18 1515:00 23:00 07:00 IntakeIntake Total 1300 ml 1000 ml BalanceBalance 1300 ml 1000 ml Head: normocephalic, atraumatic ENMT: nl external ears & nose Respiratory: clear to auscultation, normal air movement Cardiovascular: regular rate and rhythm Gastrointestinal: soft, tender Results Results 24hrs Laboratory Tests Test 12/17/18 06:19 12/17/18 06:20 12/17/18 07:49 Prothrombin Time 16.0 H Prothrombin Time Ratio 1.3 INR International 1.27 Normalized Ratio Activated Partial Thromboplast 41.0 H Time Sodium Level 137 Potassium Level 4.4 Chloride Level 101 Carbon Dioxide Level 28 Anion Gap 8 Blood Urea Nitrogen < 2 L Creatinine 0.43 L Est Glomerular Filtrat > 60 Rate mL/min Glucose Level 107 Calcium Level 9.1 Iron Level 24 L Total Iron Binding Capacity 301 Percent Iron Saturation 8 L Total Bilirubin 0.7 Direct Bilirubin 0.00 Indirect Bilirubin 0.7 Aspartate Amino 78 H Transf (AST/SGOT) Alanine 35 Aminotransferase (ALT/SGPT) Alkaline Phosphatase 153 H Total Protein 6.4 Albumin 2.8 L Globulin 3.60 H Albumin/Globulin Ratio 0.77 Amylase Level 86 Lipase 497 H White Blood Count 2.0 L Red Blood Count 2.64 L Hemoglobin 8.6 L Hematocrit 25.7 L Mean Corpuscular Volume 97.3 Mean Corpuscular Hemoglobin 32.6 Mean Corpuscular 33.5 Hemoglobin Concent Red Cell Distribution Width 14.8 H Platelet Count 61 L Mean Platelet Volume 11.4 H Immature Granulocytes % 0.500 H Neutrophils % 41.0 Lymphocytes % 32.3 Monocytes % 21.2 H Eosinophils % 3.5 Basophils % 1.5 Nucleated Red Blood Cells % 0.0 Immature Granulocytes # 0.010 Neutrophils # 0.8 L Lymphocytes # 0.6 L Monocytes # 0.4 Eosinophils # 0.1 Basophils # 0.0 Nucleated Red Blood Cells # 0.0 Magnesium Level 1.9 Vitamin B12 Level > 1000 H Folate 9.6 Lab Scanned Report BLOOD TRANSFUSION Medications Medication Current Medications Pantoprazole (Protonix Iv) 40 mg BID@0600,1800 IV Last administered on 12/17/18 05:14; Admin Dose 40 MG; Start 12/11/18 at 06:00 Spironolactone (Aldactone) 25 mg AM PO Last administered on 12/17/18 08:42; Admin Dose 25 MG; Start 12/11/18 at 09:00 Lorazepam (Ativan) 0.5 mg Q6 PRN IV AGITATION/ANXIETY; Start 12/10/18 at 23:30 Potassium Chloride 30 meq/ Sodium Chloride 1,015 ml @ 125 mls/hr Q8H8M IV Last administered on 12/17/18 05:55; Admin Dose 125 MLS/HR; Start 12/10/18 at 23:30 Tramadol HCl (Ultram) 50 mg Q6 PRN PO PAIN LEVEL 6-10 Last administered on 12/17/18 08:42; Admin Dose 50 MG; Start 12/10/18 at 23:30 Metoclopramide HCl (Reglan) 10 mg AC MEALS AND BEDTIME IV Last administered on 12/17/18 11:37; Admin Dose 10 MG; Start 12/11/18 at 07:00 Morphine Sulfate (morphine) 2 mg Q4 PRN IV PAIN LEVEL 7-10 Last administered on 12/17/18at 11:38; Admin Dose 2 MG; Start 12/10/18 at 23:30 Diazepam (Valium) 2 mg BID PO Last administered on 12/17/18at 08:42; Admin Dose 2 MG; Start 12/12/18 at 09:00 JOSH GONZALEZ MD Dec 17, 2018 12:38
[2018-12-18] VITALS (9 sets, daily range): BP systolic 97–111; BP diastolic 54–71; PULSE 86–114; RESP 18–20
[2018-12-18] MEDS: morphine 2 MG INJ IV PRN ×5 (00:41→18:05)
[2018-12-18] MEDS: PANTOPRAZOLE 40 MG INJ IV SCH ×2 (05:05→18:05)
[2018-12-18] MEDS: traMADol 50 MG TAB PO PRN ×3 (06:07→21:06)
[2018-12-18] MEDS: POTASSIUM CHLORIDE 30 MEQ in SOD CHLORIDE 0.45% 1,000 ML IV SCH ×2 (06:07→18:15)
[2018-12-18] MEDS: DIAZEPAM 2 MG TAB PO SCH ×2 (08:52→21:01)
[2018-12-18] MEDS: SPIRONOLACTONE 25 MG TAB PO SCH (08:52)
[2018-12-18] MEDS: FERROUS SULFATE (EC) 325 MG TAB PO SCH ×3 (08:52→21:01)
[2018-12-18] MEDS: METOCLOPRAMIDE 10 MG INJ IV SCH ×4 (08:53→21:01)
--- NOTE | 2018-12-18 09:12 | PN ---
DATE: 12/18/2018 SUBJECTIVE: The patient is feeling a little better but still has significant abdominal pain. Had 1 episode of nausea and vomiting yesterday. OBJECTIVE: VITAL SIGNS: Temperature 98.3, pulse 98, respirations 20, blood pressure 99/54, oxygen saturation 10 0% on room air. GENERAL: Well-developed, thin female in no acute distress, lying in bed. LUNGS: Clear to auscultation bilaterally. HEART: Tachycardic, but regular. ABDOMEN: Soft, positive bowel sounds. There is moderate hepatosplenomegaly with mild to moderate te nderness to palpation. EXTREMITIES: No cyanosis, clubbing or edema. LABORATORY DATA: Pending at the time of this dictation. ASSESSMENT AND PLAN: 1. Pancytopenia. The patient continues to be neutropenic with pancytopenia but platelets are improv ing. No need for further transfusion. We will continue to monitor. The patient now on iron and douglas l have hematology see the patient to see if iron replacement on IV would be indicated at this time. 2. Hepatic steatosis/pancreatitis slowly resolving as the patient is off of alcohol for the past wee k. We will continue to monitor, but no further intervention needed. We will continue with p.r.n. an algesics. 3. Hypomagnesemia, improved as of yesterday. We will continue to monitor, but results are pending t angie. We will replace as needed. 4. Anxiety, stable. Continue with meds. 5. Severe protein calorie malnutrition, stable. Will continue to advance diet and give supplements. Dictated By: JOS VANEGAS MD, SR/NAZANIN Conf#: [id number] DID#: [id number]
[2018-12-19 01:24] VITALS: BP 84/54; PULSE 94; RESP 18
[2018-12-19 01:34] VITALS: BP 97/53; PULSE 94; RESP 18
[2018-12-19] MEDS: POTASSIUM CHLORIDE 30 MEQ in SOD CHLORIDE 0.45% 1,000 ML IV SCH ×3 (02:26→18:58)
[2018-12-19] MEDS: morphine 2 MG INJ IV PRN ×5 (02:27→21:18)
[2018-12-19] MEDS: METOCLOPRAMIDE 10 MG INJ IV SCH ×5 (05:21→21:10)
[2018-12-19] MEDS: PANTOPRAZOLE 40 MG INJ IV SCH ×2 (05:21→19:07)
[2018-12-19] MEDS: traMADol 50 MG TAB PO PRN ×3 (05:27→19:35)
[2018-12-19 07:38] VITALS: BP 103/56; PULSE 91; RESP 20
--- NOTE | 2018-12-19 08:41 | PN ---
DATE: 12/19/2018 SUBJECTIVE: The patient is feeling a little bit better. No nausea or vomiting, still with abdominal pain. OBJECTIVE: VITAL SIGNS: Temperature 97.9, pulse 91, respirations 20, blood pressure 103/56, oxygen saturation 9 6 on room air. GENERAL: Well-developed, thin female in no acute distress, sitting up in bed. LUNGS: Clear to auscultation bilaterally. HEART: Tachycardic, but regular. ABDOMEN: Soft. Normoactive bowel sounds. There is hepatosplenomegaly with moderate tenderness to p alpation in the right upper quadrant. EXTREMITIES: No cyanosis, clubbing or edema. LABORATORY DATA: Sodium 138, potassium 4.8, chloride 105, bicarbonate 25, BUN of 2, creatinine 0.44, blood sugar of 71. Magnesium 1.2, calcium 9.2, AST of 72, ALT of 33, alkaline phosphatase 149, lipa se of 478, PTT of 40.6, INR 1.35. PT of 16.8, white blood cell count 2.3, hematocrit 27.4, hemoglobi n 8.7, platelets of 72,000. ASSESSMENT AND PLAN: 1. Pancytopenia, improved. The patient is not neutropenic and her platelet count has recovered on i ts own. The patient continues to have vaginal bleeding with her menses as her menses usually last 7 to 10 days. We will have hematology evaluate the patient to assist and future treatment as the patie nt may require iron infusion prior to discharge to improve her iron levels. We will also give vitami n K today 10 mg due to her coagulopathy. 2. Hepatic steatosis/pancreatitis. The patient with decreasing numbers, although just slight bump i n lipase today. We will continue to monitor and continue with p.r.n. analgesia. 3. Hypomagnesemia persists, we will give 4 grams of IV magnesium and encourage increase in her diet. 4. Anxiety, stable. Continue with medications. Dictated By: JOS VANEGAS MD SR/NTS Conf#: [id number] DID#: [id number] CC: JOS VANEGAS MD; DARRICK STAU[employer];*EndCC*
[2018-12-19] MEDS: SPIRONOLACTONE 25 MG TAB PO SCH (09:02)
[2018-12-19] MEDS: DIAZEPAM 2 MG TAB PO SCH ×2 (09:02→21:10)
[2018-12-19] MEDS: FERROUS SULFATE (EC) 325 MG TAB PO SCH ×3 (09:02→21:10)
[2018-12-19] MEDS ORDERED: PHYTONADIONE 10 MG in DEXTROSE 5% 50 ML IVPB ONE (10:00)
[2018-12-19] MEDS ORDERED: MAGNESIUM SULFATE 4 GM/100 ML 100 ML IVPB ONE (10:00)
[2018-12-19] MEDS ORDERED: LIDOCAINE 1%/EPI (1:100,000) (MDV) 20 ML ONE (14:04)
--- NOTE | 2018-12-19 14:22 | CONS ---
Assessment/Plan Assessment/Plan Hospital Course (Demo Recall) #Pancytopenia #Fatty liver #Alcoholism #iron deficiency anemia -I believe patient's pancytopenia is likely from Etoh toxicity on the bone marrow. Now that patient has abstained from EtOH since admission, her platelet count is rising appropriately. Her platelet transfusion from several days ago was noted -still we need to rule out any other contributing causes to her pancytopenia -will check vitamin b12, folate, TSH, HIV, Hepatitis panel, DIC panel -will also check bone marrow bx to rule out MDS or acute leukemia. no blasts were noted on her peripheral smear. -start IV iron given her low iron saturation Consultation Date/Type/Reason Admit Date/Time Dec 12, 2018 at 14:35 Date of Consultation: Dec 19, 2018 Type of Consult Hematology Reason for Consultation pancytopenia Requesting Provider: JOS VANEGAS MD- Date/Time of Note DATE: 12/19/18 TIME: 14:01 Hx of Present Illness 38 yo female with history of depression, recent divorce and heavy Etoh abuse who was admitted on 12/11/18 with significant abdominal pain, nausea and vomiting. Pt had a CT A/P and abdominal ultrasound done within the last month and they both showed hepatic steatosis likely 2/2 heavy EtOH intake. Pt states she has been drinking very heavily lately and drinking whisky daily due to her recent divorce and depression. She states her last drink was on the day of admission. 12/10/18 day of admission CBC : WBX 7.3 Hg12.7 and platelets 75 12/12/18 after hydration, CBC WBC2.7 Hg 9.2 and platelets of 28. Pt has since received 2 units of platelets 12/18/18 CBC WBC 2.3, Hg 8.7 and platelets 72 Iron saturation also noted to be low at 8%. Pt denies any hematemesis or GI bleed. Constitutional: diaphoresis, poor po ENT: no complaints Respiratory: shortness of breath Cardiovascular: chest pain, lightheadedness Gastrointestinal: pain, decreased appetite, nausea, passing stool, vomiting Genitourinary: no complaints Musculoskeletal: back pain, bone/joint pain Skin: bruising Neurologic: dizziness, headache Endocrine: no complaints Lymphatic: no complaints Psychological: anxiety, depression Past Medical History fatty liver Home Meds Active Scripts Metoclopramide* (Reglan*) 5 Mg Tablet, 5 MG PO Q6H PRN for NAUSEA AND OR VOMITING, #120 TAB Prov:JOS VANEGAS 11/17/18 Magnesium Oxide* (Magnesium Oxide*) 400 Mg Tablet, 400 MG PO BID for 30 Days, #60 TAB Prov:JOS VANEGAS 11/17/18 Famotidine* (Famotidine*) 20 Mg Tablet, 20 MG PO DAILY for 30 Days, #60 TAB Prov:JOS VANEGAS 11/17/18 Benzonatate* (Benzonatate*) 100 Mg Capsule, 100 MG PO TID PRN for cough for 14 D ays, #60 CAP Prov:JOS VANEGAS 11/17/18 Morphine Sulfate* (Morphine* Liq) 10 Mg/5 Ml Solution, 5 MG PO Q3H PRN for SEVERE PAIN LEVEL 7-10 for 30 Days, #120 ML Prov:JOS VANEGAS 11/17/18 Spironolactone* (Aldactone*) 50 Mg Tablet, 50 MG PO DAILY for 30 Days, #30 TAB Prov:JOS VANEGAS 11/17/18 Reported Medications Ondansetron Hcl* (Zofran*) 4 Mg Tab, 4 MG PO NEEDED PRN for NAUSEA AND OR VOMITING, TAB 10/27/18 Pantoprazole* (Pantoprazole*) 40 Mg Tablet.dr, 40 MG PO AC BREAKFAST DINNER, TAB 10/27/18 Sucralfate* (Carafate*) 1 Gm Tab, 1 GM PO AC MEALS AND BEDTIME, TAB 10/27/18 Medications Current Medications Pantoprazole (Protonix Iv) 40 mg BID@0600,1800 IV Last administered on 12/19/18at 05:21; Admin Dose 40 MG; Start 12/11/18 at 06:00 Spironolactone (Aldactone) 25 mg AM PO Last administered on 12/19/18at 09:02; Admin Dose 25 MG; Start 12/11/18 at 09:00 Lorazepam (Ativan) 0.5 mg Q6 PRN IV AGITATION/ANXIETY; Start 12/10/18 at 23:30 Potassium Chloride 30 meq/ Sodium Chloride 1,015 ml @ 125 mls/hr Q8H8M IV Last administered on 12/19/18at 11:05; Admin Dose 125 MLS/HR; Start 12/10/18 at 23:30 Tramadol HCl (Ultram) 50 mg Q6 PRN PO PAIN LEVEL 6-10 Last administered on 12/19/18 11:53; Admin Dose 50 MG; Start 12/10/18 at 23:30 Metoclopramide HCl (Reglan) 10 mg AC MEALS AND BEDTIME IV Last administered on 12/19/18 11:53; Admin Dose 10 MG; Start 12/11/18 at 07:00 Morphine Sulfate (morphine) 2 mg Q4 PRN IV PAIN LEVEL 7-10 Last administered on 12/19/18 13:10; Admin Dose 2 MG; Start 12/10/18 at 23:30 Diazepam (Valium) 2 mg BID PO Last administered on 12/19/18 09:02; Admin Dose 2 MG; Start 12/12/18 at 09:00 Ferrous Sulfate (Ferrous Sulfate (Ec)) 325 mg TID PO Last administered on 12/19/18 13:10; Admin Dose 325 MG; Start 12/18/18 at 09:00 Magnesium Sulfate 100 ml @ 25 mls/hr ONCE ONCE IVPB Last administered on 12/19/18 10:59; Admin Dose 25 MLS/HR; Start 12/19/18 at 10:00; Stop 12/19/18 at 13:59 Allergies: Coded Allergies: Penicillins (Verified Allergy, Intermediate, rash, 10/27/18) amoxicillin (Verified Allergy, Intermediate, rash, 10/27/18) Past Surgical History Past Surgical Hx: no surgical history Family History Significant Family History: no pertinent family hx Social History Alcohol Use: heavy Smoking Status: Never smoker Exam/Review of Systems Exam Vitals Vital Signs Date Temp Pulse Resp B/P (MAP) Pulse Ox O2 O2 Flow FiO2 Time Delivery Rate 12/19/18 97.9 91 20 103/56 96 07:38 (72) 12/16/18 Room Air 15:50 Intake and Output 12/18/18 12/18/18 12/19/18 1515:00 23:00 07:00 IntakeIntake Total 1040 ml 1495 ml 1515 ml BalanceBalance 1040 ml 1495 ml 1515 ml Constitutional: alert, oriented, frail Psych: anxiety, depression Head: normocephalic Eyes: nl conjunctiva ENMT: nl external ears & nose Neck: supple Respiratory: clear to auscultation Cardiovascular: regular rate and rhythm Gastrointestinal: soft Musculoskeletal: nl extremities to inspection Extremities: normal pulses Results Result Diagram: 12/18/18 0705 12/19/18 0458 Results 24hrs Laboratory Tests Test 12/19/18 04:58 Prothrombin Time 16.8 H Prothrombin Time Ratio 1.3 INR International Normalized Ratio 1.35 Activated Partial Thromboplast Time 40.6 H Sodium Level 138 Potassium Level 4.8 Chloride Level 105 Carbon Dioxide Level 25 Anion Gap 8 Blood Urea Nitrogen 2 L Creatinine 0.44 Est Glomerular Filtrat Rate mL/min > 60 Glucose Level 71 Calcium Level 9.2 Magnesium Level 1.2 L Total Bilirubin 0.7 Direct Bilirubin 0.00 Indirect Bilirubin 0.7 Aspartate Amino Transf (AST/SGOT) 72 H Alanine Aminotransferase (ALT/SGPT) 33 Alkaline Phosphatase 149 H Total Protein 6.4 Albumin 2.7 L Globulin 3.70 H Albumin/Globulin Ratio 0.72 Lipase 478 H Medications Medication Current Medications Pantoprazole (Protonix Iv) 40 mg BID@0600,1800 IV Last administered on 12/19/18 05:21; Admin Dose 40 MG; Start 12/11/18 at 06:00 Spironolactone (Aldactone) 25 mg AM PO Last administered on 12/19/18 09:02; Admin Dose 25 MG; Start 12/11/18 at 09:00 Lorazepam (Ativan) 0.5 mg Q6 PRN IV AGITATION/ANXIETY; Start 12/10/18 at 23:30 Potassium Chloride 30 meq/ Sodium Chloride 1,015 ml @ 125 mls/hr Q8H8M IV Last administered on 12/19/18 11:05; Admin Dose 125 MLS/HR; Start 12/10/18 at 23:30 Tramadol HCl (Ultram) 50 mg Q6 PRN PO PAIN LEVEL 6-10 Last administered on 12/19/18 11:53; Admin Dose 50 MG; Start 12/10/18 at 23:30 Metoclopramide HCl (Reglan) 10 mg AC MEALS AND BEDTIME IV Last administered on 12/19/18 11:53; Admin Dose 10 MG; Start 12/11/18 at 07:00 Morphine Sulfate (morphine) 2 mg Q4 PRN IV PAIN LEVEL 7-10 Last administered on 12/19/18 13:10; Admin Dose 2 MG; Start 12/10/18 at 23:30 Diazepam (Valium) 2 mg BID PO Last administered on 12/19/18at 09:02; Admin Dose 2 MG; Start 12/12/18 at 09:00 Ferrous Sulfate (Ferrous Sulfate (Ec)) 325 mg TID PO Last administered on 12/19/18at 13:10; Admin Dose 325 MG; Start 12/18/18 at 09:00 Magnesium Sulfate 100 ml @ 25 mls/hr ONCE ONCE IVPB Last administered on 12/19/18at 10:59; Admin Dose 25 MLS/HR; Start 12/19/18 at 10:00; Stop 12/19/18 at 13:59 TIFFANIE PAREKH M.D. Dec 19, 2018 14:13
[2018-12-19] MEDS ORDERED: FENTAnyl 50 MCG/ML VIAL ONE (14:35)
[2018-12-19 16:10] VITALS: BP 97/59; PULSE 93; RESP 20
[2018-12-19 16:40] VITALS: BP 101/60; PULSE 84; RESP 20
[2018-12-19 20:50] VITALS: BP 98/61; PULSE 94; RESP 18
[2018-12-19] MEDS: DOCUSATE SODIUM 100 MG CAP PO SCH (21:10)
[2018-12-20 02:00] VITALS: BP 90/54; PULSE 96; RESP 18
[2018-12-20] MEDS: POTASSIUM CHLORIDE 30 MEQ in SOD CHLORIDE 0.45% 1,000 ML IV SCH ×3 (03:00→19:22)
[2018-12-20] MEDS: morphine 2 MG INJ IV PRN ×4 (03:02→18:49)
[2018-12-20] MEDS: PANTOPRAZOLE 40 MG INJ IV SCH ×2 (06:31→17:37)
[2018-12-20] MEDS: METOCLOPRAMIDE 10 MG INJ IV SCH ×4 (06:35→22:12)
[2018-12-20] MEDS: traMADol 50 MG TAB PO PRN ×3 (06:35→19:38)
[2018-12-20 07:43] VITALS: BP 85/39; PULSE 56; RESP 16
--- NOTE | 2018-12-20 08:54 | PN ---
DATE: 12/20/2018 SUBJECTIVE: The patient is complaining of some posterior hip pain after her bone marrow biopsy. She had some nausea with the fentanyl yesterday, but otherwise is feeling better today. OBJECTIVE: VITAL SIGNS: Temperature 98.5, pulse 56 and regular, respirations 16, blood pressure 85/39 and oxyge n saturation 95% on room air. GENERAL: Well-developed, thin female, in no acute distress. SKIN: Without rashes. CHEST: Clear to auscultation. HEART: Regular rate and rhythm. ABDOMEN: Mild to moderate tenderness to palpation. There is hepatosplenomegaly noted. Belly is sof t and normoactive bowel sounds. EXTREMITIES: No cyanosis, clubbing or edema. NEUROLOGIC: Nonfocal. LABORATORY DATA: Sodium 136, potassium 4.3, chloride 103, bicarbonate 26, BUN of 2, creatinine 0.44, glucose 70. Magnesium 1.7, AST of 68, ALT of 29, alkaline phosphatase 146, albumin 2.8, lipase of 4 13. PT of 17.1, INR 1.38, PTT of 41.1. White blood cell count 2.1, hemoglobin of 8.4, hematocrit 25 .2, platelets 79. ASSESSMENT AND PLAN: 1. Pancytopenia. Appreciate Dr. Briones's input into this case. The patient is status post bone teressa ow biopsy and awaits results. The patient has received some iron infusion already and has tolerated. We will continue with this but no need for transfusion at this point. The patient is not neutropen ic and no longer needs neutropenic precautions. 2. Hepatic steatosis/pancreatitis. The patient's with resolving inflammation and decreasing pain. The patient's numbers are improving. We will continue to monitor, but no need for further interventi on. We will continue with p.r.n. analgesia Reglan to assist with eating. 3. Anxiety, stable with medications. No need for further increase. We will continue with current m edications. 4. Hypomagnesemia, improved but still low, we will continue with replacement and recheck in the morn ing. Dictated By: JOS VANEGAS MD SR/NTS Conf#: [id number] DID#: [id number] CC: DARRICK STAUFFER FOREIGN LAW CONSULTANT; JOS VANEGAS MD;*End*
[2018-12-20] MEDS ORDERED: MAGNESIUM SULFATE 2 GM/50 ML 50 ML IVPB ONE (09:30)
[2018-12-20] MEDS: DOCUSATE SODIUM 100 MG CAP PO SCH ×2 (09:32→22:12)
[2018-12-20] MEDS: SPIRONOLACTONE 25 MG TAB PO SCH (09:33)
[2018-12-20] MEDS: DIAZEPAM 2 MG TAB PO SCH ×2 (09:33→22:12)
[2018-12-20] MEDS: FERROUS SULFATE (EC) 325 MG TAB PO SCH ×3 (09:33→22:13)
--- NOTE | 2018-12-20 11:35 | CONS ---
Assessment/Plan Assessment/Plan Hospital Course (Demo Recall) #Pancytopenia #Fatty liver #Alcoholism #iron deficiency anemia -I believe patient's pancytopenia is likely from Etoh toxicity on the bone marrow. Now that patient has abstained from EtOH since admission, her platelet count is rising appropriately. Her platelet transfusion from several days ago was noted -still we need to rule out any other contributing causes to her pancytopenia -following labs are unremarkable: vitamin b12, folate, TSH, HIV, Hepatitis panel, DIC panel -will also check bone marrow bx to rule out MDS or acute leukemia. no blasts were noted on her peripheral smear. -continue IV iron given her low iron saturation Consultation Date/Type/Reason Admit Date/Time Dec 12, 2018 at 14:35 Initial Consult Date 12/19/18 Type of Consult Hematology Reason for Consultation pancytopenia Requesting Provider: JOS VANEGAS MD- Date/Time of Note DATE: 12/20/18 TIME: 11:28 24 HR Interval Summary Free Text/Dictation no acute overnight events Exam/Review of Systems Exam Vitals Vital Signs Date Temp Pulse Resp B/P (MAP) Pulse Ox O2 O2 Flow FiO2 Time Delivery Rate 12/20/18 98.5 56 16 85/39 (54) 95 07:43 12/16/18 Room Air 15:50 Intake and Output 12/19/18 12/19/18 12/20/18 1515:00 23:00 07:00 IntakeIntake Total 1975 ml 681 ml 1215 ml BalanceBalance 1975 ml 681 ml 1215 ml Constitutional: alert, oriented Psych: no complaints Head: normocephalic Eyes: nl conjunctiva ENMT: nl external ears & nose Neck: supple Respiratory: clear to auscultation Cardiovascular: regular rate and rhythm Gastrointestinal: soft Musculoskeletal: nl extremities to inspection Results Result Diagram: 12/20/18 0444 12/20/18 0444 Results 24hrs Laboratory Tests Test 12/19/18 15:59 12/20/18 04:44 Platelet Count 90 L 79 L Prothrombin Time 16.1 H 17.1 H Prothrombin Time Ratio 1.3 1.3 INR International Normalized Ratio 1.28 1.38 Activated Partial Thromboplast Time 40.5 H 41.1 H Thrombin Time 18.8 Fibrinogen 224.0 Plasma Fibrin Degradation Products <10 D-Dimer 1245.48 H D-Dimer Comment Vitamin B12 Level > 1000 H Folate 8.5 Thyroid Stimulating Hormone (TSH) 2.150 White Blood Count 2.1 L Red Blood Count 2.67 L Hemoglobin 8.4 L Hematocrit 25.2 L Mean Corpuscular Volume 94.4 Mean Corpuscular Hemoglobin 31.5 Mean Corpuscular Hemoglobin Concent 33.3 Red Cell Distribution Width 14.5 Mean Platelet Volume 10.8 H Immature Granulocytes % 0.000 L Neutrophils % 33.8 L Lymphocytes % 37.7 Monocytes % 23.7 H Eosinophils % 2.9 Basophils % 1.9 Nucleated Red Blood Cells % 0.0 Immature Granulocytes # 0.000 Neutrophils # 0.7 L Lymphocytes # 0.8 Monocytes # 0.5 Eosinophils # 0.1 Basophils # 0.0 Nucleated Red Blood Cells # 0.0 Sodium Level 136 Potassium Level 4.3 Chloride Level 103 Carbon Dioxide Level 26 Anion Gap 7 Blood Urea Nitrogen 2 L Creatinine 0.44 Est Glomerular Filtrat Rate mL/min > 60 Glucose Level 70 Calcium Level 8.9 Magnesium Level 1.7 Total Bilirubin 0.6 Direct Bilirubin 0.00 Indirect Bilirubin 0.6 Aspartate Amino Transf (AST/SGOT) 68 H Alanine Aminotransferase (ALT/SGPT) 29 Alkaline Phosphatase 146 H Total Protein 6.2 Albumin 2.8 L Globulin 3.40 H Albumin/Globulin Ratio 0.82 Lipase 413 H Medications Medication Current Medications Pantoprazole (Protonix Iv) 40 mg BID@0600,1800 IV Last administered on 12/20/18 06:31; Admin Dose 40 MG; Start 12/11/18 at 06:00 Spironolactone (Aldactone) 25 mg AM PO Last administered on 12/20/18at 09:33; Admin Dose 25 MG; Start 12/11/18 at 09:00 Lorazepam (Ativan) 0.5 mg Q6 PRN IV AGITATION/ANXIETY; Start 12/10/18 at 23:30 Potassium Chloride 30 meq/ Sodium Chloride 1,015 ml @ 125 mls/hr Q8H8M IV Last administered on 12/20/18 03:00; Admin Dose 125 MLS/HR; Start 12/10/18 at 23:30 Tramadol HCl (Ultram) 50 mg Q6 PRN PO PAIN LEVEL 6-10 Last administered on 12/20/18 06:35; Admin Dose 50 MG; Start 12/10/18 at 23:30 Metoclopramide HCl (Reglan) 10 mg AC MEALS AND BEDTIME IV Last administered on 12/20/18 06:35; Admin Dose 10 MG; Start 12/11/18 at 07:00 Morphine Sulfate (morphine) 2 mg Q4 PRN IV PAIN LEVEL 7-10 Last administered on 12/20/18 09:32; Admin Dose 2 MG; Start 12/10/18 at 23:30 Diazepam (Valium) 2 mg BID PO Last administered on 12/20/18 09:33; Admin Dose 2 MG; Start 12/12/18 at 09:00 Ferrous Sulfate (Ferrous Sulfate (Ec)) 325 mg TID PO Last administered on 12/20/18 09:33; Admin Dose 325 MG; Start 12/18/18 at 09:00 Docusate Sodium (Colace) 100 mg BID PO Last administered on 12/20/18 09:32; Admin Dose 100 MG; Start 12/19/18 at 21:00 Magnesium Sulfate 50 ml @ 25 mls/hr ONCE ONCE IVPB Last administered on 12/20/18at 09:52; Admin Dose 25 MLS/HR; Start 12/20/18 at 09:30; Stop 12/20/18 at 11:29 TIFFANIE PAREKH M.D. December 20, 2018 11:35
[2018-12-20 14:11] VITALS: BP 93/55; PULSE 85; RESP 16
[2018-12-20 19:57] VITALS: BP 95/54; PULSE 92; RESP 17
[2018-12-21] MEDS: morphine 2 MG INJ IV PRN ×5 (00:19→19:51)
[2018-12-21] MEDS: POTASSIUM CHLORIDE 30 MEQ in SOD CHLORIDE 0.45% 1,000 ML IV SCH ×5 (00:23→21:50)
[2018-12-21 02:00] VITALS: BP 83/49; PULSE 87; RESP 17
[2018-12-21] MEDS: PANTOPRAZOLE 40 MG INJ IV SCH ×2 (06:13→17:15)
[2018-12-21] MEDS: METOCLOPRAMIDE 10 MG INJ IV SCH ×4 (06:44→21:43)
[2018-12-21 07:58] VITALS: BP 97/57; PULSE 85; RESP 17
[2018-12-21] MEDS: DOCUSATE SODIUM 100 MG CAP PO SCH ×2 (08:22→21:43)
[2018-12-21] MEDS: DIAZEPAM 2 MG TAB PO SCH ×2 (08:22→21:43)
[2018-12-21] MEDS: FERROUS SULFATE (EC) 325 MG TAB PO SCH ×3 (08:22→21:43)
[2018-12-21] MEDS: SPIRONOLACTONE 25 MG TAB PO SCH (08:22)
[2018-12-21] MEDS: traMADol 50 MG TAB PO PRN ×2 (08:22→16:38)
--- NOTE | 2018-12-21 08:38 | PN ---
DATE: 12/21/2018 SUBJECTIVE: The patient complains of back pain where she had the bone marrow biopsy and mild abdomin al pain. No nausea, no vomiting. OBJECTIVE: VITAL SIGNS: Temperature 98.5, pulse 87, respirations 17, blood pressure 83/49, oxygen saturation 97 % on room air. GENERAL: Well-developed, thin female in no acute distress, sitting up in bed. LUNGS: Clear to auscultation bilaterally. HEART: Regular rate and rhythm. ABDOMEN: There is hepatosplenomegaly present with mild to moderate right upper quadrant tenderness t o palpation. Normoactive bowel sounds. EXTREMITIES: No cyanosis, clubbing, or edema. NEUROLOGIC: Nonfocal. LABORATORY DATA: Sodium 137, potassium 4.5, chloride 105, bicarbonate 26, BUN of 3, creatinine 0.43, glucose of 67. Magnesium is 1.3, total bilirubin 0.5, AST of 64, ALT of 31, alkaline phosphatase is 133, lipase of 430. PTT of 38.7. INR of 1.32. PT of 16.5, white blood cell count 2.3, hemoglobin 8.5, hematocrit 25.7, platelets of 90,000. ASSESSMENT AND PLAN: 1. Pancytopenia. The patient's cell lines are recovering and bone marrow biopsy report is still pen ding. Preliminary shows no evidence of any cancer at this time. Continue with iron infusion and mon itoring of cell lines but no need for transfusion otherwise. 2. Hepatic steatosis/pancreatitis stable as the patient is off alcohol. We will continue to monitor and give p.r.n. analgesics Reglan and continue with monitoring. 2. Hypomagnesemia worse. We will continue with replacement as needed and give 4 grams of IV magnesi um today. 3. Anxiety, stable. Continue with diazepam. 4. Discharge planning. We will continue with iron infusion and monitoring blood and possible discha rge in the next 24 to 48 hours. Dictated By: JOS VANEGAS MD SR/NTS Conf#: [id number] DID#: [id number] CC: JOS VANEGAS MD; DARRICK STAUFFER DUMP OPERATOR;*EndCC*
[2018-12-21] MEDS ORDERED: PHYTONADIONE 10 MG in DEXTROSE 5% 50 ML IVPB ONE (09:00)
[2018-12-21] MEDS ORDERED: MAGNESIUM SULFATE 4 GM/100 ML 100 ML IVPB ONE (10:00)
--- NOTE | 2018-12-21 15:14 | CONS ---
Assessment/Plan Assessment/Plan Hospital Course (Demo Recall) #Pancytopenia #Fatty liver #Alcoholism #iron deficiency anemia -I believe patient's pancytopenia is likely from Etoh toxicity on the bone marrow. Now that patient has abstained from EtOH since admission, her platelet count is rising appropriately. Her platelet transfusion from several days ago was noted -still we need to rule out any other contributing causes to her pancytopenia -following labs are unremarkable: vitamin b12, folate, TSH, HIV, Hepatitis panel, DIC panel - bone marrow bx reveals no evidence of MDS or acute leukemia. it is consistent with EtOH toxicity on bone marrow -continue IV iron given her low iron saturation Consultation Date/Type/Reason Admit Date/Time Dec 12, 2018 at 14:35 Initial Consult Date 12/19/18 Type of Consult Hematology Reason for Consultation pancytopenia Requesting Provider: JOS VANEGAS MD- Date/Time of Note DATE: 12/21/18 TIME: 15:12 24 HR Interval Summary Free Text/Dictation no acute overnight events. counts improving Exam/Review of Systems Exam Vitals Vital Signs Date Temp Pulse Resp B/P (MAP) Pulse Ox O2 O2 Flow FiO2 Time Delivery Rate 12/21/18 98.3 85 17 97/57 (70) 99 07:58 Intake and Output 12/20/18 12/20/18 12/21/18 1515:00 23:00 07:00 IntakeIntake Total 1725 ml 830 ml 1340 ml OutputOutput Total 100 ml BalanceBalance 1725 ml 830 ml 1240 ml Constitutional: alert, oriented Psych: no complaints Head: normocephalic Eyes: nl conjunctiva ENMT: nl external ears & nose Neck: supple Respiratory: clear to auscultation Cardiovascular: regular rate and rhythm Gastrointestinal: soft Musculoskeletal: nl extremities to inspection Results Result Diagram: 12/21/18 0500 12/21/18 0459 Results 24hrs Laboratory Tests Test 12/21/18 04:59 12/21/18 05:00 Prothrombin Time 16.5 H Prothrombin Time Ratio 1.3 INR International Normalized Ratio 1.32 Activated Partial Thromboplast Time 38.7 H Sodium Level 137 Potassium Level 4.5 Chloride Level 105 Carbon Dioxide Level 26 Anion Gap 6 Blood Urea Nitrogen 3 L Creatinine 0.43 L Est Glomerular Filtrat Rate mL/min > 60 Glucose Level 67 L Calcium Level 8.7 Magnesium Level 1.3 L Total Bilirubin 0.5 Direct Bilirubin 0.00 Indirect Bilirubin 0.5 Aspartate Amino Transf (AST/SGOT) 64 H Alanine Aminotransferase (ALT/SGPT) 31 Alkaline Phosphatase 133 H Total Protein 6.1 Albumin 2.7 L Globulin 3.40 H Albumin/Globulin Ratio 0.79 Lipase 430 H White Blood Count 2.3 L Red Blood Count 2.66 L Hemoglobin 8.5 L Hematocrit 25.7 L Mean Corpuscular Volume 96.6 Mean Corpuscular Hemoglobin 32.0 Mean Corpuscular Hemoglobin Concent 33.1 Red Cell Distribution Width 14.6 H Platelet Count 90 L Mean Platelet Volume 11.1 H Immature Granulocytes % 0.000 L Neutrophils % 36.2 L Lymphocytes % 38.8 Monocytes % 20.7 H Eosinophils % 3.0 Basophils % 1.3 Nucleated Red Blood Cells % 0.0 Immature Granulocytes # 0.000 Neutrophils # 0.8 L Lymphocytes # 0.9 Monocytes # 0.5 Eosinophils # 0.1 Basophils # 0.0 Nucleated Red Blood Cells # 0.0 Medications Medication Current Medications Pantoprazole (Protonix Iv) 40 mg BID@0600,1800 IV Last administered on 12/21/18 06:13; Admin Dose 40 MG; Start 12/11/18 at 06:00 Spironolactone (Aldactone) 25 mg AM PO Last administered on 12/21/18 08:22; Admin Dose 25 MG; Start 12/11/18 at 09:00 Lorazepam (Ativan) 0.5 mg Q6 PRN IV AGITATION/ANXIETY; Start 12/10/18 at 23:30 Potassium Chloride 30 meq/ Sodium Chloride 1,015 ml @ 125 mls/hr Q8H8M IV Last administered on 12/21/18 08:25; Admin Dose 125 MLS/HR; Start 12/10/18 at 23:30 Tramadol HCl (Ultram) 50 mg Q6 PRN PO PAIN LEVEL 6-10 Last administered on 12/21/18 08:22; Admin Dose 50 MG; Start 12/10/18 at 23:30 Metoclopramide HCl (Reglan) 10 mg AC MEALS AND BEDTIME IV Last administered on 12/21/18 11:57; Admin Dose 10 MG; Start 12/11/18 at 07:00 Morphine Sulfate (morphine) 2 mg Q4 PRN IV PAIN LEVEL 7-10 Last administered on 12/21/18 11:05; Admin Dose 2 MG; Start 12/10/18 at 23:30 Diazepam (Valium) 2 mg BID PO Last administered on 12/21/18 08:22; Admin Dose 2 MG; Start 12/12/18 at 09:00 Ferrous Sulfate (Ferrous Sulfate (Ec)) 325 mg TID PO Last administered on 12/21/18 13:49; Admin Dose 325 MG; Start 12/18/18 at 09:00 Docusate Sodium (Colace) 100 mg BID PO Last administered on 12/21/18 08:22; Admin Dose 100 MG; Start 12/19/18 at 21:00 TIFFANIE PAREKH M.D. December 21, 2018 15:14
[2018-12-21 15:39] VITALS: BP 93/60; PULSE 92; RESP 17
[2018-12-21 20:00] VITALS: BP 93/53; PULSE 95; RESP 18
[2018-12-22] MEDS: morphine 2 MG INJ IV PRN ×3 (00:51→11:02)
[2018-12-22 02:00] VITALS: BP 91/50; PULSE 88; RESP 18
[2018-12-22] MEDS: POTASSIUM CHLORIDE 30 MEQ in SOD CHLORIDE 0.45% 1,000 ML IV SCH ×2 (03:54→06:16)
[2018-12-22] MEDS: PANTOPRAZOLE 40 MG INJ IV SCH (06:02)
[2018-12-22] MEDS: METOCLOPRAMIDE 10 MG INJ IV SCH (06:36)
[2018-12-22 07:34] VITALS: BP 94/51; PULSE 85; RESP 18
--- NOTE | 2018-12-22 08:10 | PDOCDIS ---
Discharge Instructions DIAGNOSIS Discharge Diagnosis 1.etohic hepatitis 2.Pancreatitis 3.Pancytopenia 4.Generalized Anxiety CONDITION [id number] Patient Condition: [id number] Good HOME CARE INSTRUCTIONS: [id number] Diet Instructions: [id number] Regular ACTIVITY: [id number] Activity Restrictions: [id number] No Restrictions FOLLOW UP/APPOINTMENTS Follow-up Plan 1.Follow up with Dr. Flynn within 2wk, call for appt 2.Lab tests next wk 3.follow up with Dr. Briones per her recommendations SCHOOL/WORK RELEASE May return to School/Work on: Jan 22, 2019 JOS FLYNN MD- December 22, 2018 08:10
[2018-12-22] MEDS ORDERED: FER325 PO (08:12)
[2018-12-22] MEDS ORDERED: VAL2 PO (08:12)
[2018-12-22] MEDS: DIAZEPAM 2 MG TAB PO SCH (08:18)
[2018-12-22] MEDS: SPIRONOLACTONE 25 MG TAB PO SCH (08:18)
[2018-12-22] MEDS: FERROUS SULFATE (EC) 325 MG TAB PO SCH (08:18)
[2018-12-22] MEDS: DOCUSATE SODIUM 100 MG CAP PO SCH (08:18)
[2018-12-22] MEDS: traMADol 50 MG TAB PO PRN (08:21)
[2018-12-22] MEDS ORDERED: MAGNESIUM SULFATE 2 GM/50 ML 50 ML IVPB ONE (09:00)
--- NOTE | 2018-12-22 09:08 | PN ---
DATE: 12/22/2018 SUBJECTIVE: The patient is feeling a little bit better but still has moderate abdominal pain and low er back pain, but no nausea or vomiting. OBJECTIVE: VITAL SIGNS: Temperature 98.5, pulse 85, respirations 18, blood pressure 94/51, oxygen saturation 10 0% on room air. GENERAL: Well-developed, thin female in no acute distress. ABDOMEN: Soft, nondistended. There is tenderness in the right upper quadrant with hepatosplenomegal y noted. HEART: Regular rate and rhythm. NEUROLOGIC: Nonfocal. LABORATORY DATA: Sodium 137, potassium 5.0, chloride 105, bicarbonate 27, BUN of 3, creatinine 0.48. Sugar is 71. Magnesium 1.5, calcium 8.7, AST of 61. Alkaline phosphatase is 120, albumin 2.6, lip ase of 506. White blood cell count 2.5, hemoglobin 8.4, hematocrit 25.0, platelet count 93. PTT of 38.6, INR 1.31, PT of 16.4. ASSESSMENT AND PLAN: 1. Pancytopenia, remains stable and platelet count is increasing. No need for transfusion at this p oint. We will continue on iron at discharge and monitor blood and recheck blood next week and have t he patient follow up with Dr. Briones as well. 2. Alcoholic hepatitis/pancreatitis, stable and improving, off of alcohol. We will continue with cu rrent medications and discharge plans. The patient is stable to go home today. 3. Anxiety, stable. Continue with diazepam at 2 mg b.i.d. 4. Hypomagnesemia, improved. We will continue with magnesium replacement. 5. Gastritis. Continue with famotidine and pantoprazole at discharge. 6. Discharge planning. The patient is stable for discharge. She will follow up with me within the next 2 weeks to get blood test done next week and follow up with Dr. Briones per her recommendations. Dictated By: JOS VANEGAS MD SR/NTS Conf#: [id number] DID#: [id number] CC: JOS VANEGAS MD; DARRICK STAUFFER SOUR BLEACHING PLEATER;*EndCC*
== END 2018-12-22 11:25 | disposition home or self-care (01) | DRG 432 ==
LOC: E/R 20:35 → INTOOBSV 21:27 → TEL 21:27 → OBSVTOIN 12-12 14:35 → TEL 12-14 15:05 → 2NE 12-18 11:57
PROVIDERS: ADMIT Internal Medicine; ATTEND Internal Medicine
PROC: 30233R1 Transfusion of Nonautologous Platelets into Peripheral Vein, Percutaneous Approach (ICD-10-PCS; 2018-12-14)
PROC: 07DR3ZX Extraction of Iliac Bone Marrow, Percutaneous Approach, Diagnostic (ICD-10-PCS; principal; 2018-12-19)
DX: K70.10 Alcoholic hepatitis without ascites (principal); K85.90 Acute pancreatitis without necrosis or infection, unspecified; E43 Unspecified severe protein-calorie malnutrition; D61.818 Other pancytopenia; Z68.1 Body mass index [BMI] 19.9 or less, adult; K70.9 Alcoholic liver disease, unspecified; Y90.8 Blood alcohol level of 240 mg/100 ml or more; R10.9 Unspecified abdominal pain; R16.2 Hepatomegaly with splenomegaly, not elsewhere classified; K76.0 Fatty (change of) liver, not elsewhere classified; R11.2 Nausea with vomiting, unspecified; K21.9 Gastro-esophageal reflux disease without esophagitis; F41.9 Anxiety disorder, unspecified; K29.70 Gastritis, unspecified, without bleeding; R00.0 Tachycardia, unspecified; I10 Essential (primary) hypertension; E87.6 Hypokalemia; F10.129 Alcohol abuse with intoxication, unspecified; E83.42 Hypomagnesemia; D50.9 Iron deficiency anemia, unspecified; N92.0 Excessive and frequent menstruation with regular cycle; R16.1 Splenomegaly, not elsewhere classified
CPT/HCPCS: 36415; 36430; 71045; 76700; 77012; 80053; 80307; 81003; 81025; 82140; 82150; 82607; 82746; 82962; 83540; 83615; 83690; 83735; 84443; 84484; 85025; 85049; 85362; 85378; 85384; 85610; 85670; 85730; 86644; 86850; 86900; 86901; 87081; 88305; 88313; 93005; 96374; 96375; 99217; G0378; C9113; J1170; J1200; J1885; J2060; J2270; J2405; J2765; J3010; J3475; J3480; J7030; J7120; P9035

== ENCOUNTER 2019-04-03 19:22 | Emergency (ER) | payer BC ==
[~2019-04-03] VITALS: Ht 153.7 cm; Wt 47.0 kg
[~2019-04-03 19:22] MED LIST changes: -BENZ-5 PO; +FER325 PO; -SUCR1TAB56 PO; +VAL2 PO
[2019-04-03 19:25] VITALS: Ht 153.7 cm; Wt 47.0 kg
[2019-04-03] MEDS ORDERED: ACETAMINOPHEN 500 MG TAB PO STA (19:26)
[2019-04-03] MEDS ORDERED: SOD CHLORIDE 0.9% 1,000 ML IV STA ×2 (19:26→19:54)
[2019-04-03] MEDS ORDERED: THIAMINE 100 MG TAB PO ONE (21:30)
[2019-04-03] MEDS ORDERED: FOLIC ACID 1 MG TAB PO ONE (21:30)
[2019-04-03] MEDS ORDERED: DIAZEPAM 5 MG/ML SYG IV ONE (21:30)
[2019-04-03] MEDS ORDERED: DEXTROSE 5%-0.45% NACL 500 ML BAG IV ONE (21:30)
[2019-04-03] MEDS ORDERED: LIDOCAINE 1%/EPI (1:100,000) (MDV) 20 ML INJ ONE (22:00)
--- NOTE | 2019-04-03 22:51 | ERD ---
ER Documentation Chief Complaint Chief Complaint BIBA FOR SYNCOPAL EPISODE WHILE TALKING ON THE PHONE HPI 38-year-old female presents to the emergency room with reported episode of possible syncope. However history provided later by father is at the patient has an alcohol abuse history. She has been drinking frequently as they have been out of town. She stopped drinking 12 to 24 hours ago. The patient may have had a seizure. The patient has had a seizure in the past related to stopping drinking. The patient has a hematoma to the occipital scalp. The patient is tachycardic upon arrival. She herself describes a mild headache that is moderate and throbbing. She denies any prodrome of chest pain or shortness of breath. Patient is not forthright with information provided by her father. ROS All systems reviewed and are negative except as per history of present illness. Medications Home Meds Active Scripts Ferrous Sulfate* (Ferrous Sulfate*) 325 Mg Tabec, 325 MG PO TID for 30 Days, #90 TAB Prov:JOS VANEGAS 12/22/18 Diazepam* (Valium*) 2 Mg Tab, 2 MG PO BID for 30 Days, #60 TAB Prov:JOS VANEGAS 12/22/18 Metoclopramide* (Reglan*) 5 Mg Tablet, 5 MG PO Q6H PRN for NAUSEA AND OR VOMITING, #120 TAB Prov:JOS VANEGAS 11/17/18 Magnesium Oxide* (Magnesium Oxide*) 400 Mg Tablet, 400 MG PO BID for 30 Days, #60 TAB Prov:JOS VANEGAS 11/17/18 Famotidine* (Famotidine*) 20 Mg Tablet, 20 MG PO DAILY for 30 Days, #60 TAB Prov:JOS VANEGAS 11/17/18 Morphine Sulfate* (Morphine* Liq) 10 Mg/5 Ml Solution, 5 MG PO Q3H PRN for SEVER E PAIN LEVEL 7-10 for 30 Days, #120 ML Prov:JOS VANEGAS 11/17/18 Spironolactone* (Aldactone*) 50 Mg Tablet, 50 MG PO DAILY for 30 Days, #30 TAB Prov:JOS VANEGAS 11/17/18 Reported Medications Ondansetron Hcl* (Zofran*) 4 Mg Tab, 4 MG PO NEEDED PRN for NAUSEA AND OR VOMITING, TAB 10/27/18 Pantoprazole* (Pantoprazole*) 40 Mg Tablet.dr, 40 MG PO AC BREAKFAST DINNER, TAB 10/27/18 Allergies Allergies: Coded Allergies: Penicillins (Verified Allergy, Intermediate, rash, 10/27/18) amoxicillin (Verified Allergy, Intermediate, rash, 10/27/18) PMhx/Soc History of Surgery: Yes (back surgery,stomach surgery) Anesthesia Reaction: No Hx Neurological Disorder: No Hx Respiratory Disorders: No Hx Cardiac Disorders: Yes (htn) Hx Psychiatric Problems: Yes (anxiety) Hx Miscellaneous Medical Probl: No Hx Alcohol Use: Yes (RECOVERING) Hx Substance Use: No Hx Tobacco Use: No Smoking Status: Never smoker FmHx Family History: No diabetes Physical Exam Vitals Vital Signs Date Temp Pulse Resp B/P (MAP) Pulse Ox O2 O2 Flow FiO2 Time Delivery Rate 04/03/19 98.5 130 20 130/98 100 19:25 (109) Physical Exam Airway is intact Bilateral breath sounds Strong distal pulses No obvious deficits General: Well developed, well nourished, no acute distress Head: Occipital scalp hematoma with associated abrasion, no laceration Eyes: Pupils equally reactive, EOM intact ENT: Moist mucous membranes Neck: Supple, no lymphadenopathy, No midline tenderness, deformities, step-offs to the cervical spine, full active and passive range of motion without midline pain. Respiratory: Lungs clear bilaterally, no distress, no chest wall tenderness, no crepitus Cardiovascular: Tachycardia, no murmurs, rubs, or gallops Abdominal: Soft, non-tender, non-distended, no peritoneal signs, pelvis is stable : Deferred MSK: No edema, no unilateral swelling, 5/5 strength, no midline tenderness deformities or step-offs to the thoracolumbar spine Neurologic: Alert and oriented, moving all extremities, normal speech, no focal weakness, no cerebellar signs, slight tremor Skin: No ecchymoses or bruising to the chest or abdomen Psych: Normal mood Result Diagram: 04/03/19195804/03/191958 Results 24 hrs Laboratory Tests Test 04/03/19 19:59 White Blood Count 4.7 10^3/ul Red Blood Count 3.35 10^6/ul Hemoglobin 11.4 g/dl Hematocrit 32.9 % Mean Corpuscular Volume 98.2 fl Mean Corpuscular Hemoglobin 34.0 pg Mean Corpuscular Hemoglobin Concent 34.7 g/dl Red Cell Distribution Width 14.7 % Platelet Count 31 10^3/UL Mean Platelet Volume 12.1 fl Immature Granulocytes % 0.200 % Neutrophils % % Segmented Neutrophils % (Manual) 82 % Band Neutrophils % (Manual) 1 % Lymphocytes % % Lymphocytes % (Manual) 11 % Monocytes % % Monocytes % (Manual) 6 % Eosinophils % % Basophils % % Nucleated Red Blood Cells % 0.0 /100WBC Immature Granulocytes # 0.010 10^3/ul Neutrophils # 10^3/ul Neutrophils # (Manual) 3.9 10^3/ul Band Neutrophils # 0.0 10^3/ul Lymphocytes (Manual) 0.5 10^3/ul Lymphocytes # 10^3/ul Monocytes # 10^3/ul Monocytes # (Manual) 0.2 10^3/ul Eosinophils # 10^3/ul Basophils # 10^3/ul Nucleated Red Blood Cells # 10^3/ul Platelet Estimate SIG DECREASED Giant Platelets 4 % Anisocytosis 1+ Sodium Level 136 mmol/L Potassium Level 3.3 mmol/L Chloride Level 93 mmol/L Carbon Dioxide Level 27 mmol/L Anion Gap 16 Blood Urea Nitrogen 3 mg/dl Creatinine 0.62 mg/dl Est Glomerular Filtrat Rate mL/min > 60 mL/min Glucose Level 96 mg/dl Calcium Level 8.6 mg/dl Troponin I < 0.012 ng/ml Current Medications Medications Dose Sig/Mayra Start Time Status Last (Trade) Ordered Route PRN Stop Time Admin Dose Reason Admin Sodium 1,000 ml @ Q1H STAT 04/03/19 DC 04/03/19 Chloride 1,000 mls/hr IV 19:26 19:59 04/03/19 20:25 1,000 mg ONCE STAT 04/03/19 DC 04/03/19 Acetaminophen PO 19:26 19:59 (Tylenol 04/03/19 19:27 Tab) Sodium 1,000 ml @ Q1H STAT 04/03/19 DC 04/03/19 Chloride 1,000 mls/hr IV 19:54 19:59 04/03/19 20:53 Thiamine 100 mg ONCE ONCE 04/03/19 DC 04/03/19 HCl PO 21:30 21:59 (Vitamin B1) 04/03/19 21:31 Folic Acid 1 mg ONCE ONCE 04/03/19 DC 04/03/19 (Folic Acid) PO 21:30 21:59 04/03/19 21:31 Diazepam 5 mg ONCE ONCE 04/03/19 DC 04/03/19 (Valium) IV 21:30 21:32 04/03/19 21:31 500 ml ONCE ONCE 04/03/19 DC 04/03/19 Dextrose/Sodi IV 21:30 21:59 um Chloride 04/03/19 21:31 (D5-1/2ns) Lidocaine/ ONCE ONCE 04/03/19 DC Epinephrine INJ 22:00 (Xylocaine 04/03/19 22:01 1%/ Epi (Mdv) 20 ml) Procedures/MDM EKG, MONITORS, & DIAGNOSTIC IMAGING: EKG: I reviewed and interpreted a 12-lead EKG. Rhythm: Normal sinus rhythm ST Changes: No contiguous ST segment elevations T waves: No contiguous T wave inversions Impression: No evidence of acute cardiac ischemia CT brain: No acute process per radiologist read LAB INTERPRETATION: I reviewed the laboratory testing and it shows pancytopenia MEDICAL DECISION MAKING: The patient's clinical exam history and physical are most consistent with likely alcohol withdrawal seizure. However, this information was provided at a later time. The patient has evidence of withdrawal syndrome with tachycardia and slight tremor. The patient appears clinically dehydrated. Patient has an occipital hematoma. Tetanus is up-to-date. CT imaging of the brain appropriate. The patient does not meet high-risk criteria and based on NEXUS cervical spine criteria there is no indication for cervical spine imaging at this time. ER COURSE: * Patient treated with fluid resuscitation, multivitamin, Valium. The patient's heart rate and symptoms are much improved. * Localized wound care provided. No indication for laceration repair * CT brain is negative * Symptoms are much improved at this point. I feel the patient can be safely discharged with close primary care follow-up. The patient is a poor candidate for outpatient benzodiazepines. CONSULTATION: None DISPOSITION PLAN: The patient does not have an identifiable emergent medical condition that warrants inpatient hospitalization at this time. The patient is deemed safe for discharge with outpatient follow-up. We discussed follow up with the patient's primary care doctor within 24 to 48 hours as needed. We also discussed return to the emergency room for worsening symptoms or worsening condition. Outpatient referral: None required Discharge Medications: None required Departure Diagnosis: Primary Impression: Dehydration Additional Impressions: Scalp hematoma Encounter type: initial encounter Qualified Codes: S00.03XA - Contusion of scalp, initial encounter Alcohol withdrawal Complication of substance-induced condition: uncomplicated Qualified Codes: F10.230 - Alcohol dependence with withdrawal, uncomplicated Pancytopenia Alcohol abuse Closed head injury Encounter type: initial encounter Qualified Codes: S09.90XA - Unspecified injury of head, initial encounter Condition: Stable Patient Instructions: Alcohol Withdrawal, HEAD INJURY, No Wake-Up (Adult) Additional Instructions: Call your primary care doctor TOMORROW for an appointment during the next 1 WEEK.Tell the executive legal secretary that you were referred from this facility.See the doctor sooner or return here if your condition worsens before your appointment time. JOSH HONEYCUTT MD Apr 03, 2019 22:51
[2019-04-03 22:53] VITALS: BP 122/89; PULSE 100; RESP 16
== END 2019-04-03 23:10 | disposition home or self-care (01) ==
LOC: E/R 19:22
DX: E86.0 Dehydration (principal); S00.03XA Contusion of scalp, initial encounter; F10.230 Alcohol dependence with withdrawal, uncomplicated; D61.818 Other pancytopenia; I10 Essential (primary) hypertension; X58.XXXA Exposure to other specified factors, initial encounter; Y92.9 Unspecified place or not applicable
CPT/HCPCS: 36415; 70450; 80048; 84484; 85025; 93005; 96374; 96375; 99285; J3360; J7030